=== PATIENT | female | born 1960 | race Caucasian/White ===

== ENCOUNTER 2025-01-30 09:48 | Outpatient (AMB) | payer MEDICARE, SELFPAY ==
--- NOTE | 2025-01-30 10:14 | HO.SPINEOV ---
Intake Visit Reasons: Chronic back & Hip pain Intake Note: Ms. Ojeda is here today c/o back and hip pain. MRI done @ [facility] (brought disc). 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 Allergies Iodinated Contrast Media Allergy (Severe, Verified 01/30/25 10:17) Hives gabapentin Allergy (Intermediate, Verified 01/30/25 10:17) Confusion Penicillins Allergy (Mild, Verified 01/30/25 10:17) Rash ampicillin Adverse Reaction (Mild, Verified 01/30/25 10:17) Rash Assessment & Plan Assessment & Plan (1) Lumbar stenosis with neurogenic claudication: Code(s): M48.062 - Spinal stenosis, lumbar region with neurogenic claudication Category: Medical Plan Dear colleague Thank you for referring Rhoda Ojeda to the office today with a chief complaint of right-sided back pain radiating down her right leg. HPI: This 64-year-old female had an episode of severe back pain during 34 years ago. It is unclear if there was radiating pain down her leg but she did have residual numbness in the top of her foot and big toe. She also had a cervical decompression done for right-sided arm pain and weakness. She comes in complaining of a predominantly right-sided back pain that radiates down into her right leg. The pain can radiate to her right hip to the front of her thigh and into her suazo. The symptoms have been going on for years but have progressed to a point that it is interfering with daily activities. She has to change her routine of exercising to avoid the symptoms and can not walk or stand as long as she wants anymore. Sitting down relieves the symptoms. 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 She is going to have another study done in March to assess if any growth occurs. GERD, 2 C-sections, cervical laminectomy, carpal tunnel release any cholecystectomy Medications: Ibuprofen, Tylenol, Pepcid, omeprazole, Restasis, lorazepam Allergies: Ampicillin and penicillin which both produce rash, gabapentin gives confusion, contrast allergy Social history: Retired. Lives alone. Two grown children. She denies smoking Physical Exam: Pleasant female. The no restrictions in motion of the lumbar spine. Straight leg raise is negative. Motor exam is 5/5 throughout. There is bilateral hypoesthesia in his sock like distribution. Reflexes are still present though. No pathological reflexes Radiological Studies: MRI done at [facility] on 05/05/2024 shows a asymmetrical near collapse of the L4-5 disc space and moderate L3-4 central spinal stenosis. Impression/Plan: This patient is clinically suffering from unilateral neurogenic claudication caused by L3-4 spinal stenosis. I think in the past she had a disc herniation L4-5 with residual numbness in an L5 dermatome. This most likely explains the asymmetrical disc collapse at L4-5. I offered the patient a right L3-4 hemilaminotomy to decompress the L4 nerve root to address the right leg pain. I described the procedure and expected postoperative outcome. I advised her to schedule surgery after it is determined that the aortic aneurysm is stable. Thank you for allowing me to participate in your patients care. total time spent was 50 minutes in counseling ,coordination of plan, personal review of imaging, surgical decision making and subsequent plan Lane Fernandes MD, PhD Spine Fellowship Trained Neurosurgeon Director, [facility] Coding Level of Care Code New Pt Level 4 (92612) Diagnoses Lumbar stenosis with neurogenic claudication M48.062
== END 2025-01-30 10:52 | disposition home or self-care (01) ==
LOC: HO.HNS 09:49
PROVIDERS: PCP Family Medicine; Referring Provider Family Medicine; Visit Provider Neurological Surgery
DX: M48.062 Spinal stenosis, lumbar region with neurogenic claudication (principal)
CPT/HCPCS: 99204

== ENCOUNTER → 2025-01-30 09:48 | Outpatient (BNVA) | payer MEDICARE, SELFPAY | PROVIDERS: PCP Family Medicine; Referring Provider Family Medicine; Visit Provider Neurological Surgery | DX: M48.062 Spinal stenosis, lumbar region with neurogenic claudication (principal) | CPT/HCPCS: 99202 ==

== ENCOUNTER → 2025-04-29 13:08 | Outpatient (BNV) | payer MEDICARE, SELFPAY | PROVIDERS: PCP Family Medicine; Visit Provider Internal Medicine Cardiovascular Disease | DX: R94.31 Abnormal electrocardiogram [ECG] [EKG] (principal); Z01.810 Encounter for preprocedural cardiovascular examination | CPT/HCPCS: 93010 ==

== ENCOUNTER 2025-04-29 14:10 | Outpatient (AMB) | payer MEDICARE, SELFPAY ==
--- NOTE | 2025-04-29 14:22 | HO.SPINEOV ---
Intake Visit Reasons: Discuss Surgery/Surgery Questions Intake Note: Ms. Ojeda is here today to discuss surgical options. Nuclear Auxiliary Operator Required: No Allergies Iodinated Contrast Media Allergy (Severe, Verified 01/30/25 10:17) Hives gabapentin Allergy (Intermediate, Verified 01/30/25 10:17) Confusion Penicillins Allergy (Mild, Verified 01/30/25 10:17) Rash ampicillin Adverse Reaction (Mild, Verified 01/30/25 10:17) Rash Assessment & Plan Assessment & Plan (1) Lumbar stenosis with neurogenic claudication: Code(s): M48.062 - Spinal stenosis, lumbar region with neurogenic claudication Category: Medical Plan On 04/29/2025, I saw for preoperative visit Rhoda Ojeda to answer some more questions about her upcoming surgery. She is scheduled to undergo a lumbar decompression for right L4 radiculopathy/neurogenic claudication. I explained to her that the goal of surgery is to relieve the symptoms. I do not think it will affect her intermittent back pain. All questions were answered satisfactorily. I spent 15 minutes in his consult. Lane Fernandes MD, PhD Spine Fellowship Trained Neurosurgeon Director, [facility] Coding Level of Care Code Est Pt Level 2 (99910) Diagnoses Lumbar stenosis with neurogenic claudication M48.062
--- OUTSIDE RECORDS SUMMARY | 2025-04-29 14:27 | XMS_ITS | Encounter Summary ---
Author Organization [facility] Address [address] [place] [address] Phone Care Team Providers Care Tipple Supervisor Name Role Phone Alonso Denney MD Unavailable [phone] Alonso Denney MD Primary Care Provider + [phone] Homa Richards MD Unavailable [phone] Alonso Denney MD Unavailable [phone] Encounter Details Date Type Department Care Team (Latest Contact Info) Description 12/12/2021 Transcribe Orders [facility] [address] [place] [address] Pedro Rivas MD [address] [place] [address], [address] [place], [place] [id number] [email or web address] Neuropathy (Primary Dx); Numbness Social History Tobacco Use Types Packs/Day Years Used Date Smoking Tobacco: Never Smokeless Tobacco: Never Alcohol Use Standard Drinks/Week Comments Yes 6 (1 standard drink = 0.6 oz pur e alcohol) Comments No Sex and Gender Information Value Date Recorded Sex Assigned at Female 03/08/2020 12:06 PM EDT Legal Sex Female 9:51 PM EDT Gender Identity Female 03/08/2020 12:06 PM EDT Sexual Orientation Straight 03/08/2020 12 :06 PM EDT documented as of this encounter Plan of Treatment Upcoming Encounters Date Type Department Care Team (Late st Contact Info) Description 03/13/2025 Procedure Pass [facility] [address] [place] [address] [place] [address] 06/02/2025 10:00 AM EDT Nurse Only [address] [place] [address] Alonso Denney MD [address] [place] [address], [address] [place] [address] 06/22/2025 11:00 AM EDT Office Visit [address] [place] [address] Alonso Denney MD [address] [place] [address], [address] [place] [address] 08/17/2025 2:45 PM EST Appointment Echo Lab [address] [place] [address] Ese Grier DNP [address] [place] [address], [address] [address] 09/21/2025 10:30 AM EST Office Visit [facility] [address] [place] [address] Dr [address] Floor, [address] [place] [address] Star Goodman DO [address] [place] [address] 01/05/2026 9:10 AM EDT Office Visit [facility] [address] [place] [address] [place] [address] Angle Rouse MD, MPH [address] [place] [address], [address] [address] documented as of this encounter Results * MYELOPEROXIDASE ANTIBODIES, IGG (12/16/2021 10:11 AM EDT) MYELOPEROXIDASE AB <0.2 <0.4 (Negative) U [facility] [place] Blood 12/16/2021 10:1 1 AM EDT 12/16/2021 10:36 AM EDT Pedro Rivas MD LAB BLOOD ORDERABLES Final R esult Performing Organization Address [facility] Co de Phone Number [facility] [place] [address] [place] [address] * SS-A/SS-B antibodies (12/12/2021 9:56 AM EDT) SS-A/RO IGG <0.2 <1.0 (Negative) U [facility] [place] SS-B/LA IGG <0.2 <1.0 (Negative) U [facility] Blood 12/12/2021 9:56 AM EDT 12/12/2021 10:13 AM EDT Pedro Rivas MD LAB BLOOD ORDERABLES Final R esult Performing Organization Address 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 Suggest further testing for anti-myeloperoxidase (anti-MPO) antibodies, if clinically indicated. ADDITIONAL INFORMATION This test was developed and its performance characteristics determined by [facility] in a manner consistent with CLIA requirements. This test has not been cleared or approved by the U.S. Food and Drug Administration. Blood 12/12/2021 9:56 AM EDT 12/12/2021 10:13 AM EDT Pedro Rivas MD LAB BLOOD ORDERABLES Final R esult Performing Organization Address City/[facility]/ZIP Co de Phone Number [facility]/PATH [address] [place] [address] * ACETYLCHOLINE RECEPTOR BINDING ANTIBODY (12/12/2021 9:56 AM EDT) ACH RECEPTOR BIND AB 0.00 <=0.02 nmol/L [facility] MED AND PAT+ Comment: (NOTE) ADDITIONAL INFORMATION This test was developed and its performance characteristics determined by [facility] in a manner consistent with CLIA requirements. This test has not been cleared or approved by the U.S. Food and Drug Administration. Blood 12/12/2021 9:56 AM EDT 12/12/2021 10:13 AM EDT Pedro Rivas MD LAB BLOOD ORDERABLES Final [facility] Performing Organization Address City/[facility] Co de Phone Number [facility] MED AND PAT+ [address] [place] [address] * (ABNORMAL) CPK (creatine kinase) (12/12/2021 9:56 AM EDT) Pathologist [facility] CREATINE KINASE 231(H) 21 - 215 U/L [facility] Blood 12/12/2021 9:56 AM EDT 12/12/2021 10:13 AM EDT Pedro Rivas MD LAB BLOOD ORDERABLES Final R esult Performing Organization Address City/[facility]/ZIP Co de Phone Number [facility] [address] [place] [address] documented in this encounter Visit Diagnoses Diagnosis Neuropathy- Primary Mononeuritis of unspecified site Numbness Disturbance of skin sensation documented in this encounter Additional Health Concerns Infection Onset Date Last Indicated Resolved Time COVID-19 11/29/2022 11/29/2022 12/20/2022 1:21 AM EDT CoV-Risk Comment:Per Ambulatory Triage Form 11/30/2022 11/30/202211/30 8:26 AM EDT Assessment Noted Time PHQ-2 Depression Total Score: 0 12/21/19 21 9:27 AM EDT documented as of this encounter Care Teams Tipple Supervisor Relationship Specialty Start Date End Date Alonso Denney MD [address] [place] [address], [address] [place] [id number] PCP - General 07/02/17 Alonso Denney MD [address] [place] [address], [address] [place] [address] Historical LMR Provider 07/08/17 Homa Richards MD [address] [place] [address] Orthopedics [facility] Sports Medicine, [place] [address] Historical LMR Provider 07/08/17 Alonso Denney MD [address] [place] [address], [address] [address] Insurance Assigned Provider 01/18/19 documented as of this encounter Additional Source Comments The information contained in this document represents components of the legal health record. It is not the complete legal health record.[facility]
== END 2025-04-29 14:44 | disposition home or self-care (01) ==
LOC: HO.HNS 14:10
PROVIDERS: PCP Family Medicine; Visit Provider Neurological Surgery
DX: M48.062 Spinal stenosis, lumbar region with neurogenic claudication (principal)
CPT/HCPCS: 99212

== ENCOUNTER → 2025-04-29 14:10 | Outpatient (BNVA) | payer MEDICARE, SELFPAY | PROVIDERS: PCP Family Medicine; Visit Provider Neurological Surgery | DX: M48.062 Spinal stenosis, lumbar region with neurogenic claudication (principal) | CPT/HCPCS: 99212 ==

== ENCOUNTER 2025-05-14 08:44 | Day surgery (SDC) | payer MEDICARE, SELFPAY ==
--- NOTE | 2025-04-29 | ECG_ITS ---
Test Reason : 5preop Blood Pressure : */* mmHG Vent. Rate : 72 BPM Atrial Rate : 72 BPM P-R Int : 174 ms QRS Dur : 80 ms QT Int : 384 ms P-R-T Axes : 46 24 66 degrees QTcB Int : 420 ms Normal sinus rhythm Low voltage QRS Septal infarct , age undetermined Abnormal ECG No previous ECGs available Referred By: Teresa Rogers Electronically Signed By: Zachery Cristobal
[2025-04-29 12:25] VITALS: BP 158/96; PULSE 89; RESP 17; O2SAT 99; BMI 23.9
--- NOTE | 2025-04-29 12:32 | HO.ANESPROP2 ---
Documented by User: Teresa Rogers NP 05/05/25 11:43 HPI - Anesthesia Eval Consult details Narrative: 64 yr old female for right L3-4 Hemilaminotomy, seen in PAT. No CP/SOB with hiking [place] several times weekly. Aortic aneurysm: stable based on recent echo done at [facility], see below. Follows with [facility], last visit end of February 2025, will have repeat echo 6 months (Sep 10Oct 12) Rare vasovagal episodes: 2/2 severe dehydration, pain, getting up quickly. [facility] Active Problems Active Problems: All Active Problems Lumbar stenosis with neurogenic claudication (Acute) Past Medical History Medical History Vasovagal episode Back pain Arthritis GERD (gastroesophageal reflux disease) Aortic aneurysm Numbness Idiopathic peripheral neuropathy Osteopenia Family History Family history of problems with anesthesia: No Surgical History Surgical History History of bilateral breast biopsy H/O colonoscopy History of esophagogastroduodenoscopy (EGD) History of carpal tunnel release Hx of cholecystectomy Hx of excision of lamina of cervical vertebra for decompression of spinal cord (~2009) History of 2 sections History of Problems with Anesthesia: No Social History Social History Are you a primary family member caretaker to a significant other at home: No Do you presently have visiting nurse or other home services: No Patient Tobacco Use Status: Never used Tobacco Use of substances other than those prescribed or required for medical reasons: No Have you been hit, kicked, punched, or otherwise hurt by someone within the past year? If so, by whom?: No Advance Directives: No Advance Directives Information Provided: Yes Advance Directives on File: No Patient : No : No Poor oral hygiene: Yes Meds Allergies Allergy/AdvReac Type Severity Reaction Status Date / Time Iodinated Contrast Media Allergy Severe Hives Verified 01/30/25 10:17 gabapentin Allergy Intermediate Confusion Verified 01/30/25 10:17 Penicillins Allergy Mild Rash Verified 01/30/25 10:17 ampicillin AdvReac Mild Rash Verified 01/30/25 10:17 Home Medications ?Medication ?Instructions ?Recorded ?Confirmed ?Last Taken ?Type acetaminophen 325 mg tablet 650 mg PO Q6H PRN Pain 04/29/25 04/29/25 Unknown History calcium carbonate 500 mg PO DAILY 04/29/25 04/29/25 Unknown History cholecalciferol (vitamin D3) 75 75 mcg PO DAILY 04/29/25 04/29/25 Unknown History mcg (3,000 unit) tablet cyanocobalamin (vitamin B-12) 100 100 mcg [id number] 04/29/25 04/29/25 Unknown History mcg/mL injection solution cyclosporine 0.05 % eye drops in a 1 drp ophthalmic (eye) BID 04/29/25 04/29/25 Unknown History dropperette (Restasis) famotidine 20 mg tablet 20 mg PO DAILY PRN Acid Reflux 04/29/25 04/29/25 Unknown History ibuprofen 200 mg tablet 400 mg PO Q6H PRN Pain 04/29/25 04/29/25 Unknown History lorazepam 0.5 mg tablet 0.5 mg PO BID PRN anxiety 04/29/25 04/29/25 Unknown History omeprazole 20 mg capsule,delayed 20 mg PO DAILY PRN Acid Reflux 04/29/25 04/29/25 Unknown History release vitamin B complex 1 cap PO DAILY 04/29/25 04/29/25 Unknown History Exam Narrative Narrative: EKG 04/29/25 Vent. Rate : 72 BPM Atrial Rate : 72 BPM P-R Int : 174 ms QRS Dur : 80 ms QT Int : 384 ms P-R-T Axes : 46 24 66 degrees QTcB Int : 420 ms Normal sinus rhythm Low voltage QRS Septal infarct , age undetermined Abnormal ECG No previous ECGs available unchanged from scanned EKG from 2022 Echo 02/2025 Airway Mallampati Class: I TM Dist: >3cm Neck ROM: Full Loose/Missing/Broken Teeth: No Heart: RRR Lungs: CTAB Assessment and Plan Final Anesthetic Review Family History of Problems with Anesthesia: No History of Problems with Anesthesia: No Documented by User: Josephine Teran NP 05/13/25 09:15 [facility] Past Medical History Medical History Vasovagal episode Back pain Arthritis GERD (gastroesophageal reflux disease) Aortic aneurysm Numbness Idiopathic peripheral neuropathy Osteopenia Surgical History Surgical History History of bilateral breast biopsy H/O colonoscopy History of esophagogastroduodenoscopy (EGD) History of carpal tunnel release Hx of cholecystectomy Hx of excision of lamina of cervical vertebra for decompression of spinal cord (~2009) History of 2 sections Social History Social History Are you a primary family member caretaker to a significant other at home: No Do you presently have visiting nurse or other home services: No Patient Tobacco Use Status: Never used Tobacco Use of substances other than those prescribed or required for medical reasons: No Have you been hit, kicked, punched, or otherwise hurt by someone within the past year? If so, by whom?: No Advance Directives: No Advance Directives Information Provided: Yes Advance Directives on File: No Patient : No : No Poor oral hygiene: Yes Meds Allergies Allergy/AdvReac Type Severity Reaction Status Date / Time Iodinated Contrast Media Allergy Severe Hives Verified 01/30/25 10:17 gabapentin Allergy Intermediate Confusion Verified 01/30/25 10:17 Penicillins Allergy Mild Rash Verified 01/30/25 10:17 ampicillin AdvReac Mild Rash Verified 01/30/25 10:17 Home Medications ?Medication ?Instructions ?Recorded ?Confirmed ?Last Taken ?Type acetaminophen 325 mg tablet 650 mg PO Q6H PRN Pain 04/29/25 04/29/25 Unknown History calcium carbonate 500 mg PO DAILY 04/29/25 04/29/25 Unknown History cholecalciferol (vitamin D3) 75 75 mcg PO DAILY 04/29/25 04/29/25 Unknown History mcg (3,000 unit) tablet cyanocobalamin (vitamin B-12) 100 100 mcg [id number] 04/29/25 04/29/25 Unknown History mcg/mL injection solution cyclosporine 0.05 % eye drops in a 1 drp ophthalmic (eye) BID 04/29/25 04/29/25 Unknown History dropperette (Restasis) famotidine 20 mg tablet 20 mg PO DAILY PRN Acid Reflux 04/29/25 04/29/25 Unknown History ibuprofen 200 mg tablet 400 mg PO Q6H PRN Pain 04/29/25 04/29/25 Unknown History lorazepam 0.5 mg tablet 0.5 mg PO BID PRN anxiety 04/29/25 04/29/25 Unknown History omeprazole 20 mg capsule,delayed 20 mg PO DAILY PRN Acid Reflux 04/29/25 04/29/25 Unknown History release vitamin B complex 1 cap PO DAILY 04/29/25 04/29/25 Unknown History Exam Pertinent Lab Results Pertinent Lab Results: Lab Results 04/29/25 Range/Units 13:21 WBC 4.3 L (4.8-10.8) X10*3/uL RBC 4.32 (4.20-5.50) X10*6/uL Hgb 13.8 (12.0-16.0) g/dl Hct 40.9 (37.0-47.0) % MCV 94.7 (80.0-98.0) fL MCH 31.9 (27.0-33.0) pg MCHC 33.7 (31.0-35.0) g/dl RDW 12.9 (11.0-16.0) % Plt Count 265 (160-400) X10*3/uL MPV 9.6 (9.4-12.3) fL Immature Gran % (Auto) 0.2 (0.0-0.4) % Neut % (Auto) 57.3 (45-73) % Lymph % (Auto) 27.3 (20-40) % [place] % (Auto) 11.2 H (2-11) % Eos % (Auto) 2.6 (0-4) % Baso % (Auto) 1.4 (0-2) % Lymph # (Auto) 1.2 (1.2-4.9) X10*3/uL [place] # (Auto) 0.5 (0.1-1.2) X10*3/uL Eos # (Auto) 0.1 (0.0-0.4) X10*3/uL Baso # (Auto) 0.1 (0.0-0.2) X10*3/uL Abs Immat Gran (auto) 0.01 (0.00-0.03) X10*3/uL Absolute Neuts (auto) 2.5 (2.0-8.3) x10*3/uL Absolute Nucleated RBC 0.000 (0.0-0.012) X10*3/uL Nucleated RBC % (auto) 0.0 (0.0-0.2) /100WBC Sodium 138 (135-145) mmol/L Potassium 3.9 (3.3-5.1) mmol/L Chloride 104 (96-108) mmol/L Carbon Dioxide 27 (22-29) mmol/L Anion Gap 11 L (12-20) BUN 15 (9-16) mg/dL Creatinine 0.65 (0.5-1.4) mg/dL Estim Creat Clear Calc 85.9 Estimated GFR > 60 Random Glucose 96 (60-115) mg/dL Calcium 9.4 (8.4-10.2) mg/dL Documented by User: Yanelis Pate MD 05/14/25 09:12 [facility] Past Medical History Medical History Vasovagal episode Back pain Arthritis GERD (gastroesophageal reflux disease) Aortic aneurysm Numbness Idiopathic peripheral neuropathy Osteopenia Surgical History Surgical History History of bilateral breast biopsy H/O colonoscopy History of esophagogastroduodenoscopy (EGD) History of carpal tunnel release Hx of cholecystectomy Hx of excision of lamina of cervical vertebra for decompression of spinal cord (~2009) History of 2 sections Social History Social History Are you a primary family member caretaker to a significant other at home: No Do you presently have visiting nurse or other home services: No Patient Tobacco Use Status: Never used Tobacco Use of substances other than those prescribed or required for medical reasons: No Have you been hit, kicked, punched, or otherwise hurt by someone within the past year? If so, by whom?: No Advance Directives: No Advance Directives Information Provided: Yes Advance Directives on File: No Patient : No : No Poor oral hygiene: Yes Meds Allergies Allergy/AdvReac Type Severity Reaction Status Date / Time Iodinated Contrast Media Allergy Severe Hives Verified 01/30/25 10:17 gabapentin Allergy Intermediate Confusion Verified 01/30/25 10:17 Penicillins Allergy Mild Rash Verified 01/30/25 10:17 ampicillin AdvReac Mild Rash Verified 01/30/25 10:17 Home Medications ?Medication ?Instructions ?Recorded ?Confirmed ?Last Taken ?Type acetaminophen 325 mg tablet 650 mg PO Q6H PRN Pain 04/29/25 04/29/25 Unknown History calcium carbonate 500 mg PO DAILY 04/29/25 04/29/25 Unknown History cholecalciferol (vitamin D3) 75 75 mcg PO DAILY 04/29/25 04/29/25 Unknown History mcg (3,000 unit) tablet cyanocobalamin (vitamin B-12) 100 100 mcg [id number] 04/29/25 04/29/25 Unknown History mcg/mL injection solution cyclosporine 0.05 % eye drops in a 1 drp ophthalmic (eye) BID 04/29/25 04/29/25 Unknown History dropperette (Restasis) famotidine 20 mg tablet 20 mg PO DAILY PRN Acid Reflux 04/29/25 04/29/25 Unknown History ibuprofen 200 mg tablet 400 mg PO Q6H PRN Pain 04/29/25 04/29/25 Unknown History lorazepam 0.5 mg tablet 0.5 mg PO BID PRN anxiety 04/29/25 04/29/25 Unknown History omeprazole 20 mg capsule,delayed 20 mg PO DAILY PRN Acid Reflux 04/29/25 04/29/25 Unknown History release vitamin B complex 1 cap PO DAILY 04/29/25 04/29/25 Unknown History Assessment and Plan Assessment Anesthesia Assessment: Anesthesia Plan Discussed and Chart Reviewed Final Anesthetic Review NPO: Yes ASA Class: III Final Preanesthetic Review: No Changes in Pt Med Stat, Meds/Allgs Chart Reviewed, Consent Obtained/Reviewed and Anes Risks/Benef Reviewed Patient Risk: Intermediate Procedure Risk: Intermediate Anesthetic Plan Anesthetic Plan: GA Disposition: Standard PACU
[2025-04-29 13:22] LABS: MANUAL DIFF FLAG NO
[2025-04-29 13:38] LABS: Hematocrit 40.9 % (37.0-47.0); Hemoglobin 13.8 g/dl (12.0-16.0); Imm Gran Abs Auto 0.01 X10*3/uL (0.00-0.03); Imm Gran Pct Auto 0.2 % (0.0-0.4); Lymphocytes Absolute Auto 1.2 X10*3/uL (1.2-4.9); Mean Corpuscular HGB Conc 33.7 g/dl (31.0-35.0); Mean Corpuscular Hemoglobin 31.9 pg (27.0-33.0); Mean Corpuscular Volume 94.7 fL (80.0-98.0); NRBC Abs Auto 0.000 X10*3/uL (0.0-0.012); NRBC Pct Auto 0.0 /100WBC (0.0-0.2); Platelet Count 265 X10*3/uL (160-400); Red Blood Count 4.32 X10*6/uL (4.20-5.50); White Blood Count 4.3 X10*3/uL (4.8-10.8)
[2025-04-29 14:42] LABS: Anion Gap 11 (12-20); Blood Urea Nitrogen 15 mg/dL (9-16); Calcium 9.4 mg/dL (8.4-10.2); Carbon Dioxide 27 mmol/L (22-29); Chloride 104 mmol/L (96-108); Creatinine Clr Calc Pharmacy 85.9; Estimated Glomerular Filt Rate > 60; Potassium 3.9 mmol/L (3.3-5.1); Sodium 138 mmol/L (135-145)
[2025-05-14] VITALS (9 sets, daily range): BP systolic 125–165; BP diastolic 69–99; PULSE 78–93; RESP 12–20; TEMP 36.1; O2SAT 96–100; BMI 23.0
--- NOTE | ~2025-05-14 | FL_ITS ---
EXAMINATION: FL GUIDANCE ONLY HISTORY: l3-4 hemilaminotomy, right COMPARISON: None available. TECHNIQUE: Fluoroscopy time: Less than 1 minute. Cumulative Dose: 4.23 mGy. DAP: 1.15 mGym2 Images: 1. FINDINGS: A single fluoroscopic spot film of the lumbar spine in the lateral projection demonstrates a probe directed toward the L3-4 intervertebral disc space from a posterior approach. FL/FL guidance in OR IMPRESSION: Fluoroscopy during procedure. Please see procedure report for additional information. Electronically signed by: Av Boyle MD 05/14/2025 12:58 PM EDT
--- NOTE | 2025-05-14 09:07 | MHC.SHP ---
Pre-Procedural Eval Section A - 24 Hr Update-Section A only Date of Service: 05/14/25 The patient is an INPATIENT: No Section B - Complete if H&P > 30 days Chief Complaint: Spinal stenosis, lumbar region with neurogenic Details of Present Illness: Right Leg pain Allergies: Allergies Allergy/AdvReac Type Severity Reaction Status Date / Time Iodinated Contrast Media Allergy Severe Hives Verified 01/30/25 10:17 gabapentin Allergy Intermediate Confusion Verified 01/30/25 10:17 Penicillins Allergy Mild Rash Verified 01/30/25 10:17 ampicillin AdvReac Mild Rash Verified 01/30/25 10:17 Review of Systems Sugical H&P ROS: Negative: Constitution, Cardiovascular, Respiratory, Neurological, Psychiatric, Hem-Onc, Allergic/Immunologic, Gastrointestinal, Genitourinary, Musculoskeletal, Integumentary, Endocrine and Eyes/Ears/Nose/Throat Exam Surgical H&P Exam: Normal: HEENT, Normal: Heart, Normal: Lungs, Normal: Extremities, Normal: Abdomen, Normal: Skin and Normal: Neurological (Awake, alert) Plan Diagnosis/Plan: Unchanged I have reviewed the history and physical and performed a pertinent physical examination on my patient. No changes have occurred unless specified. Right L3-4 decompression Time Spent With Patient Time: Total time managing care of this patient today _4___ minutes.
[2025-05-14] MEDS: Lactated Ringers 1,000 ML 100 ML IVCONT (09:30)
--- NOTE | 2025-05-14 11:41 | PM.DS ---
DS: Providers Provider Date of Service: 05/14/25 <MIRANDA Perry - Last Filed: 05/14/25 11:44> Date of discharge: 05/14/25 <MIRANDA Perry - Last Filed: 05/14/25 11:44> Primary care physician: Alonso Denney MD <MIRANDA Perry - Last Filed: 05/14/25 11:44> Admitting clinician: Lane Fernandes <MIRANDA Perry - Last Filed: 05/14/25 11:44> DS: Diagnosis Discharge Diagnosis (1) Lumbar stenosis with neurogenic claudication: Status: Acute <MIRANDA Perry - Last Filed: 05/14/25 11:44> DS: Summary Time Attestation Discharge Coordination Time (in mins): 15 <MIRANDA Rivera - Last Filed: 05/14/25 12:33> Quality: Safe Use of Opioids Does Pt have an Active Cancer Diagnosis on the Problem List?: No <MIRANDA Rivera - Last Filed: 05/14/25 12:33> Quality: Stroke Does the patient have a stroke diagnosis?: No <MIRANDA Rivera - Last Filed: 05/14/25 12:33> Physical Exam Vital Signs: Vital Signs: Last Vital Signs Temp 96.9 F 05/14/25 09:16 Pulse 84 05/14/25 09:16 Resp 20 05/14/25 09:16 BP 125/85 05/14/25 09:16 Pulse Ox 98 05/14/25 09:16 O2 Del Method Room Air 05/14/25 09:16 BMI result Body Mass Index 23.0 <MIRANDA Perry - Last Filed: 05/14/25 11:44> Discharge Plan Discharge Patient Disposition: Home, Self-Care <MIRANDA Perry - Last Filed: 05/14/25 11:44> Referrals: Alonso Denney MD [Primary Care Provider, Internal Medicine] - 1 Week <MIRANDA Perry - Last Filed: 05/14/25 11:44> Discharge Medications: New oxycodone 5 mg tablet 5 mg PO Q4H PRN (Reason: pain) Qty: 20 0RF Rx Instructions: Partial Fill upon patient request. docusate sodium [Colace] 100 mg capsule 100 mg PO BID Qty: 20 0RF Continued acetaminophen 325 mg Tablet 650 mg PO Q6H PRN (Reason: Pain) famotidine 20 mg Tablet 20 mg PO DAILY PRN (Reason: Acid Reflux) lorazepam 0.5 mg tablet 0.5 mg PO BID PRN (Reason: anxiety) ibuprofen 200 mg Tablet 400 mg PO Q6H PRN (Reason: Pain) omeprazole 20 mg Capsule,Delayed Release(Dr/Ec) 20 mg PO DAILY PRN (Reason: Acid Reflux) cyclosporine [Restasis] 0.05 % dropperette 1 drp ophthalmic (eye) BID calcium carbonate 500 mg calcium (1,250 mg) Tablet 500 mg PO DAILY cholecalciferol (vitamin D3) 75 mcg (3,000 unit) Tablet 75 mcg PO DAILY cyanocobalamin (vitamin B-12) 100 mcg/mL Solution 100 mcg [id number] <MIRANDA Perry - Last Filed: 05/14/25 11:44> Discharge Orders: Discharge Order (Routine); Ordered 05/14/25 Ordered By: Basilio Hunt <MIRANDA Perry - Last Filed: 05/14/25 11:44> Diet: Advance to usual diet <MIRANDA Perry - Last Filed: 05/14/25 11:44> Advance to usual diet <MIRANDA Rivera - Last Filed: 05/14/25 12:33> Activity on Discharge: As tolerated <MIRANDA Perry - Last Filed: 05/14/25 11:44> As tolerated <MIRANDA Rivera - Last Filed: 05/14/25 12:33> Activity Restrictions/Additional Instructions: After your spinal surgery we ask you to observe the following restrictions/guidelines: Activity: It is normal to feel some discomfort as you increase your activity, but that will improve with time. We ask you avoid heavy lifting or acitivities that cause pain. As a general rule, 8lbs is a safe limit for lifting right after surgery. Walk as much as you feel comfortable but not to exhaustion. You will feel extra tired the first few days after surgery. Stay well hydrated. It is OK to walk up and down stairs You may return to driving when you are off narcotics (such as vicodin, oxycodone, dilaudid, etc), and you are back to normal functional capacity. If you have any concerns please check with office before driving. Return to work is specific to each patient and each surgery, so please speak with your doctor/PA at first follow up. Please bring paperwork such as FMLA at that time if you need it filled out. Medications: For optimum pain control, it is best to start with a combination of 500 mg of Tylenol every 4 hours with 600 mg of Motrin every 8 hours, and use narcotics as needed in between for breakthrough pain. We will give you a short supply of narcotics after surgery (usually one weeks worth). If you need more please call the office but do not use more than prescribed. You will need to give our office 48 hours notice if you need narcotics refilled and we do not fill narcotics on weekends or evenings. If you are on a narcotic, it is a good idea to take a stool softener such as colace or senna to avoid constipation If you take blood thinner such as aspirin, Plavix, Coumadin, Effient, Eliquis etc for conditions such as Afib, DVT, Pulmonary embolus, coronary disease, stents etc please speak with your surgeon about specific details as to when you can resume these medications. You can resume NSAIDs on post op day 1 (eg: Motrin, Naproxen, etc). Follow up: Please call the office, , after surgery to arrange a 3 week follow up for wound check. Wound Care: You may remove your dressing on the first day after surgery. ?You may ?leave open to air. Please do not remove the steri strips underneath. they will fall off on their own in one week. IT IS NORMAL FOR THE WOUND TO OOZE OR BE BLOODY FOR A FEW DAYS AFTER SURGERY. ?IF THIS HAPPENS JUST PLACE NEW DRESSING OVER IT TO AVOID STAINING CLOTHES. You may shower on post op day # 1 We ask that you do not let the water soak the wound. If it does get wet, just towel dry lightly. Please do not scrub your incision or place any type of chemical/ointment on the wound. No tub baths, pools or jacuzzis for one month. If you have any leaking or redness from your wound, or fevers, please call office <MIRANDA Perry - Last Filed: 05/14/25 11:44> Print Language: Armenian <MIRANDA Perry - Last Filed: 05/14/25 11:44>
--- NOTE | 2025-05-14 12:33 | W.PM.OPN ---
Operative Note Operative Note Date of Service: 05/14/25 Narrative: Preoperative Diagnosis: L3-4 spinal stenosis/lateral recess stenosis/neural foraminal stenosis Operation: Right L3-4 Laminotomy, Partial facetectomy and foraminotomy with use of microscope Consent Informed Consent was obtained for this operation. I have explained the nature, purpose and benefits of the operation. I have discussed the risks and benefit of the operation including possible complications or adverse events with patient/family. Alternative(s) were discussed with the patient with their relative benefits and risks as well as the consequences of not accepting the operation were included in obtaining consent. Surgeon: JENNA ANDRADE MD, PHD Procedure Assisted By: Charles Garza Description of Procedure This patient is suffering from right lumbar radiculopathy due to L3-4 lateral recess stenosis. The patient was offered a decompression. The procedure complications were explained. The patient was consented. The patient was brought to the operating room and endotracheally intubated. The patient was turned in prone position on the Jose frame. Prep and drape was done followed by timeout. The Physician cement tester assistant provided access. A mid lumbar incision was made followed by release of the paravertebral muscle on the right side to expose the L3-4 lamina and facet joints. An intraoperative x-ray was obtained to confirm the correct level. The microscope was brought in. I took over the procedure. The high-speed drill was used to do a L3 laminotomy until flavum ligament was reached. A #2 Kerrison was used to expand the laminotomy near flush to the pedicles and to include a partial facetectomy. The flavum ligament was opened and resected with a #3 Kerrison to decompress the underlying thecal sac. The flavum ligament was removed to decompress the lateral recess and the exiting L4 nerve root. A long nerve hook could be easily passed along the medial side of the pedicle as a sign of adequate decompression. The microscope was removed. Hemostasis was done. The physician cement tester assistant close the Incision in 2 layers. Steri-Strips were used to approximate incision. An OpSite with Tegaderm was used to cover the incision. All sponge needle counts were correct. Patient was extubated and transported in stable is to recovery room. Anesthesia: General Estimated Blood Loss (ml): 10 Complications: None Duration of Surgery: Under 60 Minutes Postoperative Plan: Discharge to home
[2025-05-14] MEDS: oxyCODONE HCl Immed Release 5 MG TABLET PO (13:33)
== END 2025-05-14 14:27 | disposition home or self-care (01) ==
PROVIDERS: Nurse Practitioner; PCP Family Medicine; Visit Provider Neurological Surgery
PROC: (CPT 63047; principal; 2025-05-14 11:50)
DX: M48.062 Spinal stenosis, lumbar region with neurogenic claudication (principal); M54.16 Radiculopathy, lumbar region; M79.605 Pain in left leg; Z91.041 Radiographic dye allergy status; Z88.0 Allergy status to penicillin; Z88.8 Allergy status to other drugs, medicaments and biological substances
CPT/HCPCS: 63047; 36415; 80048; 85025; 93005; J0131; J1100; J1885; J2003; J2250; J2405; J2704; J3010; J3374

== ENCOUNTER → 2025-05-14 08:44 | Outpatient (BNV) | payer MEDICARE, SELFPAY | PROVIDERS: PCP Family Medicine; Visit Provider Neurological Surgery | DX: M48.062 Spinal stenosis, lumbar region with neurogenic claudication (principal) | CPT/HCPCS: 63047; 99499 ==

== ENCOUNTER 2025-06-04 10:12 | Outpatient (AMB) | payer MEDICARE, SELFPAY ==
--- OUTSIDE RECORDS SUMMARY | 2025-06-02 10:00 | XMS_ITS | Encounter Summary ---
Author Organization [facility] Address [address] [facility] [address] [place] [address] Phone Care Team Providers Care Electric Power Line Examiner Name Role Phone Alonso Denney MD Unavailable [phone] Alonso Denney MD Primary Care Provider + [phone] Homa Richards MD Unavailable [phone] Reason for Visit * Reason Comments B12 Injection Encounter Details Date Type Department Care Team (Late st Contact Info) Description 06/02/2025 10:00 AM EDT Nurse Only [facility] [address] [place] [address] [phone] Alonso Denney MD [address] [facility], [address] [place] [address] [email or web address] Vitamin B 12 deficiency (Primary Dx) Social History Tobacco Use Types Packs/Day Years Used Date Smoking Tobacco: Never Smokeless Tobacco: Never Alcohol Use Standard Drinks/Week Comments Yes 1 (1 standard drink = 0.6 oz pur e alcohol) 1 or 1/2 wine every 1-2 months Child or Family Care Answer Date Record ed Do you have problems with on e of the following making it difficult for you to work, study, or receive health care? No 12/22/2022 Education Answer Date Recorded Are you interested in more education? Not on linda e 12/24/2024 Are you concerned about learning? Not on file 12/24/2024 No 12/24/2024 No 12/24/2024 Food Answer Date Recorded Within the past 6 months we worried whether our food would run out before we got money to buy more. Never True 12/22/2022 Within the past 6 months the food we bought just didn't last and we didn't have enough money to get more. Never True Residential Stability Answer Date Recor ded What is your housing situation today? I have teresa sing 12/22/2022 How many times have you move d in the past 12 months? Zero (I did not move) 12/22/2022 Paying for Meds Answer Date Recorded Do you have trouble paying for medicines? No 12/22/2022 Paying Utility Bills Answer Date Record ed Do you have trouble paying your heating or elect ricity bill? No 12/22/2022 Transportation Answer Date Recorded Has the lack of transportati on kept you from medical appointments or from getting medications? No 12/22/2022 Unemployment Answer Date Recorded Are you currently unemployed or working on a part-time or temporary basis, and looking for work? No 12/22/2022 Digital Access Answer Date Recorded No 02/09/2023 No 02/09/2023 Reliable internet access at home? Not on file 02/09/2023 Device with a working camera? Not on file Intimate Partner Violence Answer Date R ecorded Are you denied basic needs s uch as food, clothing, or medical care? No 10/21/2024 In the past 12 months have y ou been in a relationship with a person who hurts, threatens, or tries to control you? No 10/21/2024 Are you denied basic needs s uch as food, clothing, or medical care? No 10/21/2024 In the past 12 months have y ou been in a relationship with a person who hurts, threatens, or tries to control you? No 10/21/2024 Comments No Sex and Gender Information Value Date Recorded Sex Assigned at Female 03/08/2020 12:06 PM EDT Legal Sex Female 9:51 PM EDT Gender Identity Female 03/08/2020 12:06 PM EDT Sexual Orientation Straight 03/08/2020 12 :06 PM EDT documented as of this encounter Progress Notes * Addie Alexis LPN - 06/02/2025 10:00 AM EDT Patient arrived today for her B12 injection. Patient gets B12 every 2 months. She will return in 2 months for her next injection. documented in this encounter Plan of Treatment Upcoming Encounters Date Type Department Care Team (Late st Contact Info) Description 03/13/2025 Procedure Pass Echo [facility] [address] [place] [address] 06/22/2025 11:00 AM EDT Office Visit [address] [place] [address] Alonso Denney MD [address] [place] [address], [address] [place] [address] 08/11/2025 3:00 PM EST Nurse Only [address] [place] [address] Alonso Denney MD [address] [place] [address], [address] [place] [address] 08/17/2025 2:45 PM EST Appointment Echo Lab [address] [place] [address] Ese Grier DNP [address] [place] [address], [address] [place] [address] 09/21/2025 10:30 AM EST Office Visit [facility] [address] [place] [address] 3rd Floor, [address] [place] [address] Star Goodman DO [address] [place] [address] [place] [address] 01/05/2026 9:10 AM EDT Office Visit [facility] [address] [place] [address] Angle Rouse MD, MPH [address] [facility], [address] [place] [address] [email or web address] documented as of this encounter Visit Diagnoses Diagnosis Vitamin B 12 deficiency- Primary Other B-complex deficiencies documented in this encounter Administered Medications Active Administered Medications - up to 3 most recent administrations Medication Order MAR Action Action Date Dose Rate Site cyanocobalamin (VITAMIN B-12) 1,000 mcg/mL injection 1,000 mcg 1,000 mcg, Intramuscular, Every 2 Months, First dose on Sun01/04/21 at 1015Indications:B12 deficiency Given 06/02/2025 9:57 AM EDT 1,000 mcg Left Deltoid Given 03/31/2025 1:26 PM EDT 1,000 mcg Ri ght Deltoid Given 01/27/2025 1:16 PM EDT 1,000 mcg Le ft Deltoid documented in this encounter Additional Health Concerns Assessment Noted Time PHQ-2 Depression Total Score: 0 06/18/20 24 1:39 PM EDT documented as of this encounter Care Teams Electric Power Line Examiner Relationship Specialty Start Date End Date Alonso Denney MD [address] [place] [address], [address] [place] [address] [email or web address] PCP - General 07/02/17 Alonso Denney MD [address] [place] [address], [address] [place] [address] [email or web address] Historical LMR Provider 07/08/17 Homa Richards MD [address] [place] [address] [facility] Medicine, [place] [address] [email or web address] Historical LMR Provider 07/08/17 documented as of this encounter Additional Source Comments The information contained in this document represents components of the legal health record. It is not the complete legal health record.[facility]
--- NOTE | 2025-06-04 10:19 | HO.SPINEOV ---
Intake Visit Reasons: 1st post op Intake Note: Ms. Ojeda is here today for his 1st post op. Web Development Director Required: No Allergies Iodinated Contrast Media Allergy (Severe, Verified 06/04/25 10:19) Hives gabapentin Allergy (Intermediate, Verified 06/04/25 10:19) Confusion Penicillins Allergy (Mild, Verified 06/04/25 10:19) Rash ampicillin Adverse Reaction (Mild, Verified 06/04/25 10:19) Rash Assessment & Plan Assessment & Plan (1) Lumbar stenosis with neurogenic claudication: Code(s): M48.062 - Spinal stenosis, lumbar region with neurogenic claudication Category: Medical Plan Operation: Right L3-4 Laminotomy Rhoda is a pleasant 65 year old female who comes in today for her 1st postop visit after having right L3-4 lumbar decompression completed by Dr. Fernandes. Unfortunately, she reports of the same right-sided leg pain that she had prior to surgery has persisted despite her operation. She does report that she had about 2-3 days of relief after surgery, however the pain seems to have set back in. She is likely suffering from a course of postoperative inflammation, which we discussed during this visit. Often times as subsides around weeks 4-6 after surgery, the patient's once again experienced symptom relief. She asked several other questions regarding the postoperative healing course, all of which I answered to the best of my ability. We discussed return to activity guidelines and outdoor exercise. No new neurological deficits. The patient ambulates well and rises from a seated position without difficulty. Her posterior incision site is closed and well healing with no signs of drainage. I would like to follow up with Rhoda again in 6 weeks for her 2nd postoperative visit. Basilio Fernandes MD,PhD [facility] Coding Level of Care Code Global (87109) Diagnoses Lumbar stenosis with neurogenic claudication M48.062
--- OUTSIDE RECORDS SUMMARY | 2025-06-04 12:11 | XMS_ITS | Encounter Summary ---
Author Organization [facility] Address [address] [place] [address] [place] [address] Phone Care Team Providers Care I&C Tech Name Role Phone Alonso Denney MD Unavailable [phone] Fátima Cha MD Unavailable [phone] Alonso Denney MD Primary Care Provider + [phone] Josephine Beltran NP Unavailable [phone] Prudence Mishra MD Unavailable [phone] Jarrell Pretty MD Unavailable [phone] Homa Richards MD Unavailable [phone] Alonso Denney MD Unavailable [phone] Reason for Referral * MRI/CAT Scan - Closed Specialty Diagnoses / Procedures Referred By Contac t Referred To Contact Radiology Diagnoses Ataxia Numbness Procedures MRI Brain Pedro Rivas MD Phone: tel: fax: [email or web address] [address] [address] Phone: tel: Referral ID Status Reason Start Date Expiration Date Visits Re quested Visits Authorized [id number] Closed 11/07/2019 12/07/2019 1 1 Encounter Details Date Type Department Care Team (Latest Contact Info) Description 11/03/2019 Transcribe Orders Virtual Department [address] [place] [address] Pedro Rivas MD [address] [place] [address], [address] [place] [address] [email or web address] Ataxia (Primary Dx); Numbness Social History Tobacco Use Types Packs/Day Years Used Date Smoking Tobacco: Never Smokeless Tobacco: Never Alcohol Use Standard Drinks/Week Comments Yes 3 (1 standard drink = 0.6 oz pur [...] Info) Description 03/13/2025 Procedure Pass Echo Lab [address] [place] [address] 06/22/2025 11:00 AM EDT Office Visit [address] [place] [address] Alonso Denney MD [address] [place] [address], [address] [place] [address] 08/11/2025 3:00 PM EST Nurse Only [address] [place] [address] Alonso Denney MD [address] [place] [address], [address] [place] [address] 08/17/2025 2:45 PM EST Appointment Echo Lab [address] [place] [address] Ese Grier DNP [address] [place] [address], [address] [place] [address] [email or web address] 09/21/2025 10:30 AM EST Office Visit [facility] [address] Floor, [address] [place] [address] Star Goodman DO [address] [facility] [address] [place] [address] 01/05/2026 9:10 AM EDT Office Visit [facility] [address] [place] [address] Angle Rouse MD, MPH [address] [facility], [address] [place] [address] documented as of this encounter Results * MRI BRAIN WITHOUT CONTRAST (11/10/2019 8:17 AM EST) Anatomical Region Laterality Modality Head Magnetic Resonan ce 11/10/2019 8:56 AM EST Impressions 11/10/2019 9:01 AM EST No evidence of multiple sclerosis. No findings to account for the patient's symptoms. POS - [id number] Narrative 11/10/2019 9:01 AM EST HISTORY: 59-year-old female with ataxia and numbness. COMPARISON: None. TECHNIQUE: Exam performed on a 1.5 Zari high-field MRI scanner. Axial T1, T2, T2*, T2 FLAIR and diffusion-weighted imaging with ADC map, sagittal FLAIR and T1 sequences were obtained. MRI HEAD FINDINGS: Brain: No cerebellar tonsil herniation. Pituitary gland is not enlarged. No restricted diffusion to indicate acute or subacute ischemia. No intraparenchymal susceptibility artifact to indicate hemorrhage. Mild cerebellar atrophy. There are a few scattered subcentimeter T2 hyperintense white matter lesions which are of doubtful significance. No corpus callosum, brainstem or cerebellar lesions. No mass, mass effect, midline shift or extra-axial fluid collections. Ventricles: No hydrocephalus. Vasculature: Normal vascular flow-voids. Orbits: Normal. Mastoids/Middle Ear/Paranasal Sinuses: Mild ethmoid sinus mucosal thickening. Soft Tissues: Unremarkable. Bone Marrow: Unremarkable. Procedure Note Radha Arriola MD - 11/10/2019 HISTORY: 59-year-old female with ataxia and numbness. COMPARISON: None. TECHNIQUE: Exam performed on a 1.5 Zari high-field MRI scanner. AxialT1, T2, T2*, T2 FLAIR and diffusion-weighted imaging with ADC map,sagittal FLAIR and T1 sequences were obtained. MRI HEAD FINDINGS: Brain: No cerebellar tonsil herniation. Pituitary gland is not enlarged.No restricted diffusion to indicate acute or subacute ischemia. Nointraparenchymal susceptibility artifact to indicate hemorrhage. Mildcerebellar atrophy. There are a few scattered subcentimeter [id number] white matter lesions which are of doubtful significance. Nocorpus callosum, brainstem or cerebellar lesions. No mass, mass effect,midline shift or extra-axial fluid collections. Ventricles: No hydrocephalus. Vasculature: Normal vascular flow-voids. Orbits: Normal. Mastoids/Middle Ear/Paranasal Sinuses: Mild ethmoid sinus mucosalthickening. Soft Tissues: Unremarkable. Bone Marrow: Unremarkable. IMPRESSION: No evidence of multiple sclerosis. No findings to account for thepatient's symptoms. POS - [id number] Pedro Rivas MD IMG MR HEAD/NECK Final Resul t documented in this encounter Visit Diagnoses Diagnosis Ataxia- Primary Lack of coordination Numbness Disturbance of skin sensation Ataxia Lack of coordination Numbness Disturbance of skin sensation documented in this encounter Additional Health Concerns Infection Onset Date Last Indicated Resolved Time COVID-19 11/29/2022 11/29/2022 12/20/2022 1:21 AM EDT CoV-Risk Comment:Per Ambulatory Triage Form 11/30/2022 11/30/202211/30 8:26 AM EDT documented as of this encounter Care Teams I&C Tech Relationship Specialty Start Date End Date Alonso Denney MD [address] [place] [address], [address] [place] [address] PCP - General 07/02/17 Alonso Denney MD [address] [place] [address], [address] [place] [address] Historical LMR Provider 07/08/17 Fátima Cha MD [address] [place] [address], [address] [place] [address] Historical LMR Provider 07/08/17 09/24/21 Josephine Beltran NP [address] [place] [address] [address] [place] [address] Historical LMR Provider 07/08/17 2 Prudence Mishra MD [address] [place] [address] Historical LMR Provider 07/08/17 Jarrell Pretty MD [address] [place] [address] Historical LMR Provider 07/08/17 09/24/21 Homa Richards MD [address] [place] [address] [facility], [place] [address] Historical LMR Provider 07/08/17 Alonso Denney MD [address] [place] [address], [address] [place] [address] [email or web address] Insurance Assigned Provider 01/18/19 documented as of this encounter Additional Source Comments The information contained in this document represents components of the legal health record. It is not the complete legal health record.[facility]
--- OUTSIDE RECORDS SUMMARY | 2025-06-04 12:11 | XMS_ITS | Encounter Summary ---
Author Organization [facility] Address [address] [place] [address] Phone Care Team Providers Care Logging Tractor Operator Swamp Name Role Phone Alonso Denney MD Unavailable [phone] Alonso Denney MD Primary Care Provider + [phone] Homa Richards MD Unavailable [phone] Alonso Denney MD Unavailable [phone] Encounter Details Date Type Department Care Team (Late st Contact Info) Description 06/22/2022 Procedure Pass [facility], [address] [address] Social History Tobacco Use Types Packs/Day Years Used Date Smoking Tobacco: Never Smokeless Tobacco: Never Alcohol Use Standard Drinks/Week Comments Not Currently 1 (1 standard drink = 0.6 oz pur e alcohol) wine on occasion Child or Family Care Answer Date Record ed Do you have problems with on e of the following making it difficult for you to work, study, or receive health care? No 12/21/2021 Education Answer Date Recorded Are you interested in help w ith more adult education (for example, completing high school, GED, job training, learning the Chinese language, technical skills, or developing parenting skills)? No 12/21/2021 Food Answer Date Recorded Within the past 6 months we worried whether our food would run out before we got money to buy more. Never True 12/21/2021 Within the past 6 months the food we bought just didn't last and we didn't have enough money to get more. Never True Paying for Meds Answer Date Recorded Do you have trouble paying for medicines? No 12/21/2021 Paying Utility Bills Answer Date Record ed Do you have trouble paying your heating or elect ricity bill? No 12/21/2021 Transportation Answer Date Recorded Has the lack of transportati on kept you from medical appointments or from getting medications? No 12/21/2021 Comments No Sex and Gender Information Value Date Recorded Sex Assigned at Female 03/08/2020 12:06 PM EDT Legal Sex Female 9:51 PM EDT Gender Identity Female 03/08/2020 12:06 PM EDT Sexual Orientation Straight 03/08/2020 12 :06 PM EDT documented as of this encounter Plan of Treatment Upcoming Encounters Date Type Department Care Team (Late st Contact Info) Description 03/13/2025 Procedure Pass [facility] [address] [place] [address] 06/22/2025 11:00 AM EDT Office Visit [address] [place] [address] Alonso Denney MD [address] [place] [address], [address] [place] [address] 08/11/2025 3:00 PM EST Nurse Only [address] [place] [address] Alonso Denney MD [address] [place] [address], [address] [place] [address] 08/17/2025 2:45 PM EST Appointment Echo [facility] [address] [place] [address] Ese Grier DNP [address] [place] [address], [address] [place] [address] 09/21/2025 10:30 AM EST Office Visit [facility] [address] [place] [address] 3rd Floor, [address] [place] [address] Star Goodman DO [address] [facility] [address] [place] [address] 01/05/2026 9:10 AM EDT Office Visit [facility] Rheumatology [address] [place] [address] Angle Rouse MD, MPH [address] [facility], [address] [place] [address] documented as of this encounter Visit Diagnoses Not on filedocumented in this encounter Additional Health Concerns Infection Onset Date Last Indicated Resolved Time COVID-19 11/29/2022 11/29/2022 12/20/2022 1:21 AM EDT CoV-Risk Comment:Per Ambulatory Triage Form 11/30/2022 11/30/202211/30 8:26 AM EDT Assessment Noted Time PHQ-2 Depression Total Score: 1 12/22/19 22 9:30 AM EDT documented as of this encounter Care Teams Logging Tractor Operator Swamp Relationship Specialty Start Date End Date Alonso Denney MD [address] [place] [address], [address] [place] [address] PCP - General 07/02/17 Alonso Denney MD [address] [place] [address], [address] [place] [address] Historical LMR Provider 07/08/17 Homa Richards MD [address] [place] [address] Orthopedics & Sports Medicine, [facility] [place], [place] [id number] Historical LMR Provider 07/08/17 Alonso Denney MD [address] [place] [address], [address] [place] [address] [email or web address] Insurance Assigned Provider 01/18/19 documented as of this encounter Additional Source Comments The information contained in this document represents components of the legal health record. It is not the complete legal health record.[facility]
--- OUTSIDE RECORDS SUMMARY | 2025-06-04 12:11 | XMS_ITS | Encounter Summary ---
Author Organization [facility] Address [address] [facility] [address] [place] [address] Phone Care Team Providers Care Referral Nurse Name Role Phone Alonso Denney MD Unavailable [phone] Fátima Cha MD Unavailable [phone] Alonso Denney MD Primary Care Provider [phone] Josephine Beltran NP Unavailable [phone] Prudence Mishra MD Unavailable [phone] Jarrell Pretty MD Unavailable [phone] Homa Richards MD Unavailable [phone] Alonso Denney MD Unavailable [phone] Encounter Details Date Type Department Care Team (Late st Contact Info) Description 11/03/2019 Procedure Pass [facility], [address] [address] Social History Tobacco Use Types Packs/Day Years [...] PM EDT documented as of this encounter Last Filed Vital Signs Vital Sign Reading Time Taken Comments Blood Pressure - - Pulse - - Temperature - - Respiratory Rate - - Oxygen Saturation - - Inhaled Oxygen Concentration - - Weight 65.8 kg (145 lb) 11/04/2019 11:38 AM EST Height 172.7 cm (5' 8 ) 11/04/2019 11:38 AM EST Body Mass Index 22.05 11/04/2019 11:38 AM EST documented in this encounter Plan of Treatment Upcoming Encounters Date Type Department Care Team (Late st Contact Info) Description 03/13/2025 Procedure Pass [facility] [address] [place] [address] 06/22/2025 11:00 AM EDT Office Visit [address] [place] [address] Alonso Denney MD [address] [place] [address], [address] [place] [address] 08/11/2025 3:00 PM EST Nurse Only [address] [place] [address] Alonso Denney MD [address] [place] [address], [address] [place] [address] 08/17/2025 2:45 PM EST Appointment [facility] [address] [place] [address] Ese Grier DNP [address] [place] [address], [address] [place] [address] 09/21/2025 10:30 AM EST Office Visit [facility] [address] [place] [address] 3rd Floor, [address] [place] [address] Star Goodman DO [address] [place] [address] 01/05/2026 9:10 AM EDT Office Visit [facility] Rheumatology 22 [place] [address] Angle Rouse MD, MPH 22 [facility], [address] [place] [address] [email or web address] documented as of this encounter Visit Diagnoses Not on filedocumented in this encounter Additional Health Concerns Infection Onset Date Last Indicated Resolved Time COVID-19 11/29/2022 11/29/2022 12/20/2022 1:21 AM EDT CoV-Risk Comment:Per Ambulatory Triage Form 11/30/2022 11/30/202211/30 8:26 AM EDT documented as of this encounter Care Teams Referral Nurse Relationship Specialty Start Date End Date Alonso Denney MD [address] [place] [address], [address] [place] [address] PCP - General 07/02/17 Alonso Denney MD [address] [place] [address], [address] [place] [address] Historical LMR Provider 07/08/17 Fátima Cha MD [address] [place] [address], [address] [place] [address] [email or web address] Historical LMR Provider 07/08/17 09/24/21 Josephine Beltran NP [address] [place] [address] Historical LMR Provider 07/08/17 2 Prudence Mishra MD [address] [place] [address], 2nd [place] [address] Historical LMR Provider 07/08/17 Jarrell Pretty MD [address] [place] [address], 2[address] [place] [address] Historical LMR Provider 07/08/17 09/24/21 Homa Richards MD [address] [place] [address] [facility] Sports Medicine, [place] [address] Historical LMR Provider 07/08/17 Alonso Denney MD [address] [place] [address], [address] [place] [address] [email or web address] Insurance Assigned Provider 01/18/19 documented as of this encounter Additional Source Comments The information contained in this document represents components of the legal health record. It is not the complete legal health record.[facility]
--- OUTSIDE RECORDS SUMMARY | 2025-06-04 12:11 | XMS_ITS | Encounter Summary ---
Author Organization [facility] Address [address] [place] [address] Phone Care Team Providers Care Remarketing Manager Name Role Phone Alonso Denney MD Unavailable [phone] Alonso Denney MD Primary Care Provider + [phone] Homa Richards MD Unavailable [phone] Encounter Details Date Type Department Care Team (Late st Contact Info) Description 06/24/2024 Procedure Pass [facility] [address] [place] [address] Social History Tobacco Use Types Packs/Day Years [...] high school, GED, job training, learning the Tristanian language, technical skills, or developing parenting skills)? No 12/22/2022 Food Answer Date Recorded Within the past [...] your housing situation today? I have teresa quiroga 12/22/2022 How many times have you move [...] as food, clothing, or medical care? No 06/18/2024 In the past 12 months have y ou been in a relationship with a person who hurts, threatens, or tries to control you? No 06/18/2024 Are you denied basic needs s uch as food, clothing, or medical care? No 06/18/2024 In the past 12 months have y ou been in a relationship with a person who hurts, threatens, or tries to control you? No 06/18/2024 Comments No Sex and Gender Information Value Date Recorded Sex Assigned at Female 03/08/2020 12:06 PM EDT Legal Sex Female 9:51 PM EDT Gender Identity Female 03/08/2020 12:06 PM EDT Sexual Orientation Straight 03/08/2020 12 :06 PM EDT documented as of this encounter Plan of Treatment Upcoming Encounters Date Type Department Care Team (Late st Contact Info) Description 03/13/2025 Procedure Pass [facility] [address] [place] [address] 06/22/2025 11:00 AM EDT Office Visit [facility] [address] [place] [address] [place] [address] Alonso Denney MD [address] [place] [address], [address] [place] [address] 08/11/2025 3:00 PM EST Nurse Only [facility] [address] [place] [address] [place] [address] Alonso Denney MD [address] [place] [address], [address] [place] [address] 08/17/2025 2:45 PM EST Appointment Echo [facility] [address] [place] [address] Ese Grier DNP [address] [place] [address], [address] [place] [address] 09/21/2025 10:30 AM EST Office Visit [facility] [address] [place] [address] 3rd Floor, [address] [place] [address] Star Goodman DO [address] [place] [address] [address] [place] [address] 01/05/2026 9:10 AM EDT Office Visit [facility] Rheumatology [address] [place] [address] [place] [address] Angle Rouse MD, MPH [address] [place] [address], [address] [place] [address] documented as of this encounter Visit Diagnoses Not on filedocumented in this encounter Additional Health Concerns Assessment Noted Time PHQ-2 Depression Total Score: 0 06/18/20 24 1:39 PM EDT documented as of this encounter Care Teams Remarketing Manager Relationship Specialty Start Date End Date Alonso Denney MD [address] [place] [address], [address] [place] [address] [email or web address] PCP - General 07/02/17 Alonso Denney MD [address] [place] [address], [address] [place] [address] Historical LMR Provider 07/08/17 Homa Richards MD [address] [place] [address] [facility] Sports Medicine, [place] [address] [email or web address] Historical LMR Provider 07/08/17 documented as of this encounter Additional Source Comments The information contained in this document represents components of the legal health record. It is not the complete legal health record.[facility]
--- OUTSIDE RECORDS SUMMARY | 2025-06-04 12:11 | XMS_ITS | Encounter Summary ---
Author Organization [facility] Address [address] [place] [address] [place] [address] Phone Care Team Providers Care Rail Car Repairer Name Role Phone Alonso Denney MD Unavailable [phone] Fátima Cha MD Unavailable [phone] Alonso Denney MD Primary Care Provider [phone] Josephine Beltran NP Unavailable [phone] Prudence Mishra MD Unavailable [phone] Jarrell Pretty MD Unavailable [phone] Homa Richards MD Unavailable [phone] Alonso Denney MD Unavailable [phone] Encounter Details Date Type Department Care Team (Late st Contact Info) Description 10/30/2019 Procedure Pass [facility] Admitting Dept Virtual Department [address] [place] [address] Social History Tobacco Use Types Packs/Day Years [...] Encounters Date Type Department Care Team (Late Contact Info) Description 03/13/2025 Procedure Pass [facility] [address] [place] [address] 06/22/2025 11:00 AM EDT Office Visit [address] [place] [address] Alonso Denney MD [address] [place] [address], [address] [place] [address] 08/11/2025 3:00 PM EST Nurse Only [address] [place] [address] Alonso Denney MD [address] [place] [address], [address] [place] [address] 08/17/2025 2:45 PM EST Appointment Echo [facility] [address] [place] [address] Ese Grier DNP [address] [place] [address], [address] [place] [address] 09/21/2025 10:30 AM EST Office Visit [facility] [address] [place] [address] Dr 3rd Floor, [address] [place] [address] Star Goodman DO [address] [place] [address] [place] [address] 01/05/2026 9:10 AM EDT Office Visit [facility] Rheumatology [address] [place] [address] [place] [address] Angle Rouse MD, MPH [address] [place] [address], [address] [address] documented as of this encounter Visit Diagnoses Not on filedocumented in this encounter Additional Health Concerns Infection Onset Date Last Indicated Resolved Time COVID-19 11/29/2022 11/29/2022 12/20/2022 1:21 AM EDT CoV-Risk Comment:Per Ambulatory Triage Form 11/30/2022 11/30/202211/30 8:26 AM EDT documented as of this encounter Care Teams Rail Car Repairer Relationship Specialty Start Date End Date Alonso Denney MD [address] [place] [address], [address] [place] [address] PCP - General 07/02/17 Alonso Denney MD [address] [place] [address], [address] [place] [address] Historical LMR Provider 07/08/17 Fátima Cha MD [address] [place] [address] Historical LMR Provider 07/08/17 09/24/21 Josephine Beltran NP [address] [place] [address] Historical LMR Provider 07/08/17 2 Prudence Mishra MD [address] [place] [address] Historical LMR Provider 07/08/17 Jarrell Pretty MD [address] [place] [address] Historical LMR Provider 07/08/17 09/24/21 Homa Richards MD [address] [place] [address] Orthopedics & Sports Medicine, [facility] [place] [address] [email or web address] Historical LMR Provider 07/08/17 Alonso Denney MD [address] [place] [address], [address] [place] [address] [email or web address] Insurance Assigned Provider 01/18/19 documented as of this encounter Additional Source Comments The information contained in this document represents components of the legal health record. It is not the complete legal health record.[facility]
--- OUTSIDE RECORDS SUMMARY | 2025-06-04 12:11 | XMS_ITS | Encounter Summary ---
Author Organization [facility] Address [address] [place] [address] Phone Care Team Providers Care Architectural Draftsman Name Role Phone Alonso Denney MD Unavailable [phone] Alonso Denney MD Primary Care Provider + [phone] Homa Richards MD Unavailable [phone] Encounter Details Date Type Department Care Team (Late st Contact Info) Description 03/14/2024 Procedure Pass [facility], [address] [address] Social History Tobacco Use Types Packs/Day Years [...] high school, GED, job training, learning the Norwegian language, technical skills, or developing parenting skills)? [...] with a working camera? Not on file Comments No Sex and Gender Information Value Date Recorded Sex Assigned at Female 03/08/2020 12:06 PM EDT Legal Sex Female 9:51 PM EDT Gender Identity Female 03/08/2020 12:06 PM EDT Sexual Orientation Straight 03/08/2020 12 :06 PM EDT documented as of this encounter Plan of Treatment Upcoming Encounters Date Type Department Care Team (Late st Contact Info) Description 03/13/2025 Procedure Pass [facility] [address] [place] [address] 06/22/2025 11:00 AM EDT Office Visit [address] [place] [address] Alonso Denney MD [address] [place] [address], [address] [place] [address] 08/11/2025 3:00 PM EST Nurse Only Ole [facility] [address] [place] [address] Alonso Denney MD [address] [place] [address], [address] [place] [address] 08/17/2025 2:45 PM EST Appointment Echo Lab [address] [place] [address] Ese Grier DNP [address] [facility], [address] [place] [address] 09/21/2025 10:30 AM EST Office Visit [facility] [address] [place] [address] Dr 3rd Floor, [address] [place] [address] Star Goodman DO [address] [facility] [address] [place] [address] 01/05/2026 9:10 AM EDT Office Visit [facility] Rheumatology [address] [place] [address] [place] [address] Angle Rouse MD, MPH [address] [facility], [address] [place] [address] documented as of this encounter Visit Diagnoses Not on filedocumented in this encounter Additional Health Concerns Assessment Noted Time PHQ-2 Depression Total Score: 0 03/14/20 24 9:39 AM EDT documented as of this encounter Care Teams Architectural Draftsman Relationship Specialty Start Date End Date Alonso Denney MD [address] [place] [address], [address] [place] [address] PCP - General 07/02/17 Alonso Denney MD [address] [place] [address], [address] [place] [address] Historical LMR Provider 07/08/17 Homa Richards MD [address] [place] [address] Orth[facility] Medicine, [place] [address] [email or web address] Historical LMR Provider 07/08/17 documented as of this encounter Additional Source Comments The information contained in this document represents components of the legal health record. It is not the complete legal health record.[facility]
--- OUTSIDE RECORDS SUMMARY | 2025-06-04 12:11 | XMS_ITS | Encounter Summary ---
Author Organization [facility] Address [address] [place] [address] Phone Care Team Providers Care Automatic Pinsetter Adjuster Name Role Phone Alonso Denney MD Unavailable [phone] Alonso Denney MD Primary Care Provider + [phone] Homa Richards MD Unavailable [phone] Alonso Denney MD Unavailable [phone] Encounter Details Date Type Department Care Team (Late st Contact Info) Description 04/04/2023 Procedure Pass [facility], [address] [address] Social History Tobacco Use Types Packs/Day Years [...] high school, GED, job training, learning the Bhutanese language, technical skills, or developing parenting skills)? [...] Info) Description 03/13/2025 Procedure Pass [facility] [address] [place] [address] 06/22/2025 11:00 AM EDT Office Visit [facility] [address] [place] [address] Alonso Denney MD [address] [place] [address], [address] [place] [address] 08/11/2025 3:00 PM EST Nurse Only [facility] [address] [place] [address] Alonso Denney MD [address] [place] [address], [address] [place] [address] 08/17/2025 2:45 PM EST Appointment Echo Lab [address] [place] [address] sEe Grier DNP [address] [facility], [address] [place] [address] 09/21/2025 10:30 AM EST Office Visit [facility] [address] [place] [address] Dr 3rd Floor, [address] [place] [address] Star Goodman DO [address] [facility] [address] [place] [address] 01/05/2026 9:10 AM EDT Office Visit [facility] Rheumatology [address] [place] [address] [place] [address] Angle Rouse MD, MPH [address] [facility], [address] [place] [address] documented as of this encounter Visit Diagnoses Not on filedocumented in this encounter Additional Health Concerns Assessment Noted Time PHQ-2 Depression Total Score: 0 12/23/19 23 9:02 AM EDT documented as of this encounter Care Teams Automatic Pinsetter Adjuster Relationship Specialty Start Date End Date Alonso Denney MD [address] [place] [address], [address] [place] [address] PCP - General 07/02/17 Alonso Denney MD [address] [place] [address], [address] [place] [address] Historical LMR Provider 07/08/17 Homa Richards MD [address] [place] [address] [facility] [place] [address] [email or web address] Historical LMR Provider 07/08/17 Alonso Denney MD [address] [place] [address], [address] [place] [address] [email or web address] Insurance Assigned Provider 01/18/19 documented as of this encounter Additional Source Comments The information contained in this document represents components of the legal health record. It is not the complete legal health record.[facility]
--- OUTSIDE RECORDS SUMMARY | 2025-06-04 12:11 | XMS_ITS | Encounter Summary ---
Author Organization [facility] Address [address] [place] [address] [place] [address] Phone Care Team Providers Care Head Pastry Chef Name Role Phone Alonso Denney MD Unavailable [phone] Fátima Cha MD Unavailable [phone] Alonso Denney MD Primary Care Provider [phone] Josephine Beltran NP Unavailable [phone] Prudence Mishra MD Unavailable [phone] Jarrell Pretty MD Unavailable [phone] Homa Richards MD Unavailable [phone] Alonso Denney MD Unavailable [phone] Encounter Details Date Type Department Care Team (Late st Contact Info) Description 10/25/2017 Procedure Pass [facility]oscopy Admitting Dept Virtual Department [address] [place] [address] Social History Tobacco Use Types Packs/Day Years Used Date Smoking Tobacco: Never Smokeless Tobacco: Never Alcohol Use Standard Drinks/Week Comments Yes 0 (1 standard drink = 0.6 oz pur e alcohol) occ Comments No Sex and Gender Information Value Date Recorded Sex Assigned at Female 03/08/2020 12:06 PM EDT Legal Sex Female 9:51 PM EDT Gender Identity Female 03/08/2020 12:06 PM EDT Sexual Orientation Straight 03/08/2020 12 :06 PM EDT documented as of this encounter Plan of Treatment Upcoming Encounters Date Type Department Care Team (Late Contact Info) Description 03/13/2025 Procedure Pass [facility] [address] [place] [address] 06/22/2025 11:00 AM EDT Office Visit [address] [place] [address] Alonso Denney MD [address] [place] [address], [address] [place] [address] 08/11/2025 3:00 PM EST Nurse Only [address] [place] [address] Alonso Denney MD [address] [place] [address], [address] [place] [address] 08/17/2025 2:45 PM EST Appointment Echo Lab [address] [place] [address] Ese Grier DNP [address] [place] [address], [address] [place] [address] 09/21/2025 10:30 AM EST Office Visit [facility] [address] [place] [address] Dr 3rd Floor, [address] [place] [address] Star Goodman DO [address] [place] [address] [place] [address] 01/05/2026 9:10 AM EDT Office Visit [facility] Rheumatology [address] [place] [address] [place] [address] Angle Rouse MD, MPH [address] [place] [address], [address] [address] documented as of this encounter Visit Diagnoses Not on filedocumented in this encounter Additional Health Concerns Infection Onset Date Last Indicated Resolved Time COVID-19 11/29/2022 11/29/2022 12/20/2022 1:21 AM EDT CoV-Risk Comment:Per Ambulatory Triage Form 11/30/2022 11/30/202211/30 8:26 AM EDT documented as of this encounter Care Teams Head Pastry Chef Relationship Specialty Start Date End Date Alonso Denney MD [address] [place] [address], [address] [place] [address] PCP - General 07/02/17 Alonso Denney MD [address] [place] [address], [address] [place] [address] Historical LMR Provider 07/08/17 Fátima Cha MD [address] [place] [address] Historical LMR Provider 07/08/17 09/24/21 Josephine Beltran NP [address] [place] [address] Historical LMR Provider 07/08/17 2 Prudence Mishra MD [address] [place] [address] Historical LMR Provider 07/08/17 Jarrell Pretty MD [address] [place] [address] Historical LMR Provider 07/08/17 09/24/21 Homa Richards MD [address] [place] [address] Orthopedics & Sports Medicine, [place] [address] [email or web address] Historical LMR Provider 07/08/17 Alonso Denney MD [address] [place] [address], [address] [place] [address] [email or web address] Insurance Assigned Provider 01/18/19 documented as of this encounter Additional Source Comments The information contained in this document represents components of the legal health record. It is not the complete legal health record.[facility]
--- OUTSIDE RECORDS SUMMARY | 2025-06-04 12:11 | XMS_ITS | Encounter Summary ---
Author Organization [facility] Address [address] [facility] [address] [place] [address] Phone Care Team Providers Care Director Recreation Center Name Role Phone Alonso Denney MD Unavailable [phone] Alonso Denney MD Primary Care Provider + [phone] Homa Richards MD Unavailable [phone] Encounter Details Date Type Department Care Team (Late st Contact Info) Description 05/15/2025 Orders Only [facility] [address] [place] [address] Provider, MD Eric [address] [place] [address] Social History Tobacco Use Types Packs/Day Years [...] Description 03/13/2025 Procedure Pass Echo Lab [address] [place] [address] 06/22/2025 11:00 AM EDT Office Visit [facility] [address] [place] [address] [place] [address] Alonso Denney MD [address] [place] [address], [address] [place] [address] 08/11/2025 3:00 PM EST Nurse Only [address] [place] [address] Alonso Denney MD [address] [place] [address], [address] [place] [address] 08/17/2025 2:45 PM EST Appointment Echo Lab [address] [place] [address] Ese Grier DNP [address] [place] [address], [address] [place] [address] 09/21/2025 10:30 AM EST Office Visit [facility] [address] [place] [address] 3rd Floor, [address] [place] [address] Star Goodman DO [address] [place] [address] [place] [address] 01/05/2026 9:10 AM EDT Office Visit [facility] [place] Rheumatology [address] [place] [address] [place] [address] Angle Rouse MD, MPH [address] [place] [address], [address] [place] [address] documented as of this encounter Procedures Procedure Name Priority Date/Time Associated Diagnosis Comments OUTSIDE IMAGING Routine 05/14/2025 9:42 AM EDT documented in this encounter Results * Outside Imaging Report Only (05/14/2025 9:42 AM EDT) us Historical Provider MD VELÁZQUEZ XR CHEST Edited Re sult - Final documented in this encounter Visit Diagnoses Not on filedocumented in this encounter Additional Health Concerns Assessment Noted Time PHQ-2 Depression Total Score: 0 06/18/20 24 1:39 PM EDT documented as of this encounter Care Teams Director Recreation Center Relationship Specialty Start Date End Date Alonso Denney MD [address] [facility], [address] [place] [address] PCP - General 07/02/17 Alonso Denney MD [address] [place] [address], [address] [place] [address] Historical LMR Provider 07/08/17 Homa Richards MD [address] [place] [address] Orthopedics [facility] Sports Medicine, [place] [address] Historical LMR Provider 07/08/17 documented as of this encounter Additional Source Comments The information contained in this document represents components of the legal health record. It is not the complete legal health record.[facility]
--- OUTSIDE RECORDS SUMMARY | 2025-06-04 12:11 | XMS_ITS | Encounter Summary ---
Author Organization [facility] Address [address] [employer] [facility] [address] [place] [address] Phone Care Team Providers Care Bdc Manager Name Role Phone Alonso Denney MD Unavailable [phone] Fátima Cha MD Unavailable [phone] Alonso Denney MD Primary Care Provider [phone] Josephine Beltran NP Unavailable [phone] Prudence Mishra MD Unavailable [phone] Jarrell Pretty MD Unavailable [phone] Homa Richards MD Unavailable [phone] Alonso Denney MD Unavailable [phone] Encounter Details Date Type Department Care Team (Late st Contact Info) Description 06/04/2020 Procedure Pass [facility], [address] [address] Social History Tobacco Use Types Packs/Day Years [...] - Inhaled Oxygen Concentration - - Weight 68 kg (150 lb) 06/07/2020 7:42 PM EDT Height 172.7 cm (5' 8 ) 06/07/2020 7:42 PM EDT Body Mass Index 22.81 06/07/2020 7:42 PM EDT documented in this encounter Plan of Treatment Upcoming Encounters Date Type Department Care Team (Late st Contact Info) Description 03/13/2025 Procedure Pass Echo Lab [address] [place] [address] 06/22/2025 11:00 AM EDT Office Visit [address] [place] [address] Alonso Denney MD [address] [place] [address], [address] [place] [address] 08/11/2025 3:00 PM EST Nurse Only [address] [place] [address] Alonso Denney MD [address] [place] [address], [address] [place] [address] [email or web address] 08/17/2025 2:45 PM EST Appointment Echo Lab [address] [place] [address] Ese Grier DNP [address] [place] [address], [address] [place] [address] 09/21/2025 10:30 AM EST Office Visit [facility] [address] [place] [address] 3rd Floor, [address] [place] [address] Star Goodman DO [address] [place] [address] 01/05/2026 9:10 AM EDT Office Visit [facility] Rheumatology [address] [place] [address] [place] [address] Angle Rouse MD, MPH [address] [facility], [address] [place] [address] [email or web address] documented as of this encounter Visit Diagnoses Not on filedocumented in this encounter Additional Health Concerns Infection Onset Date Last Indicated Resolved Time COVID-19 11/29/2022 11/29/2022 12/20/2022 1:21 AM EDT CoV-Risk Comment:Per Ambulatory Triage Form 11/30/2022 11/30/202211/30 8:26 AM EDT Assessment Noted Time PHQ-2 Depression Total Score: 0 01/23/20 11:47 AM EDT documented as of this encounter Care Teams Bdc Manager Relationship Specialty Start Date End Date Alonso Denney MD [address] [facility], [address] [place] [address] [email or web address] PCP - General 07/02/17 Alonso Denney MD [address] [place] [address], [address] [place] [address] [email or web address] Historical LMR Provider 07/08/17 Fátima Cha MD [address] [place] [address], [address] [place] [address] [email or web address] Historical LMR Provider 07/08/17 09/24/21 Josephine Beltran NP [address] [place] [address] Historical LMR Provider 07/08/17 2 Prudence Mishra MD [address] [place] [address], 2nd [place] [address] Historical LMR Provider 07/08/17 Jarrell Pretty MD [address] [place] [address], 2nd [place] [address] Historical LMR Provider 07/08/17 09/24/21 Homa Richards MD [address] [place] [address] [facility] Medicine, [place] [address] Historical LMR Provider 07/08/17 Alonso Denney MD [address] [place] [address], [address] [place] [address] [email or web address] Insurance Assigned Provider 01/18/19 documented as of this encounter Additional Source Comments The information contained in this document represents components of the legal health record. It is not the complete legal health record.[facility]
--- OUTSIDE RECORDS SUMMARY | 2025-06-04 12:11 | XMS_ITS | Encounter Summary ---
Author Organization [facility] Address [address] [facility] [address] [place] [address] Phone Care Team Providers Care Tooling Specialist Name Role Phone Alonso Denney MD Unavailable [phone] Alonso Denney MD Primary Care Provider + [phone] Homa Richards MD Unavailable [phone] Alonso Denney MD Unavailable [phone] Encounter Details Date Type Department Care Team (Latest Contact Info) Description 07/06/2023 Transcribe Orders Virtual Department [address] [place], [place] [id number] Alonso Denney MD [address] [facility], [address] [place] [address] [email or web address] Breast screening (Primary Dx) Social History Tobacco Use Types [...] high school, GED, job training, learning the Divehi language, technical skills, or developing parenting skills)? [...] Info) Description 03/13/2025 Procedure Pass Echo Lab [address] [place] [address] 06/22/2025 11:00 AM EDT Office Visit [address] [place] [address] Alonso Denney MD [address] [facility], [address] [place] [address] 08/11/2025 3:00 PM EST Nurse Only [facility] [address] [place] [address] Alonso Denney MD [address] [place] [address], [address] [place] [address] 08/17/2025 2:45 PM EST Appointment Echo Lab [address] [place] [address] Ese Grier DNP [address] [facility], [address] [place] [address] 09/21/2025 10:30 AM EST Office Visit [facility] [address] [place] [address] 3rd Floor, [address] [place] [address] Star Goodman DO [address] [place] [address] [place] [address] 01/05/2026 9:10 AM EDT Office Visit [facility] Rheumatology [address] [place] [address] [place] [address] Angle Rouse MD, MPH [address] [place] [address], [address] [place] [address] documented as of this encounter Results * BI MAMMOGRAM SCREENING WITH TOMOSYNTHESIS WITH CAD (BILATERAL) (10/03/2023 10:57 AM EST) Anatomical Region Laterality Modality Breast Left, Breast Right, Breast Bilateral Bila teral Mammography 10/11/2023 8:39 AM EST Impressions 10/11/2023 8:40 AM EST No mammographic evidence of malignancy in either breast. Annual screening mammography is recommended. BI-RADS CATEGORY: 2 - Benign finding. The patient will be notified of the results and recommendations. Narrative 10/11/2023 8:40 AM EST BI MAMMOGRAM SCREENING WITH TOMOSYNTHESIS WITH CAD (BILATERAL) Additional patient information: Screening. COMPARISON: Comparison is made with relevant prior imaging. Breast composition: The breast tissue is heterogeneously dense, which could obscure a lesion on mammography. FINDINGS: Previous surgical biopsy in both breasts. No abnormal masses, suspicious calcifications, or other significant findings are identified mammographically in either breast. Procedure Note Alberta Huitron MD - 10/11/2023 BI MAMMOGRAM SCREENING WITH TOMOSYNTHESIS WITH CAD (BILATERAL) Additional patient information: Screening. COMPARISON: Comparison is made with relevant prior imaging. Breast composition: The breast tissue is heterogeneously dense, whichcould obscure a lesion on mammography. FINDINGS: Previous surgical biopsy in both breasts. No abnormal masses, suspicious calcifications, or other significantfindings are identified mammographically in either breast. IMPRESSION: No mammographic evidence of malignancy in either breast. Annual screening mammography is recommended. BI-RADS CATEGORY: 2 - Benign finding. The patient will be notified of the results and recommendations. Alonso Denney MD IMG MG EXAMS Final Resu lt documented in this encounter Visit Diagnoses Diagnosis Breast screening- Primary Breast screening, unspecified Breast screening Breast screening, unspecified documented in this encounter Additional Health Concerns Assessment Noted Time PHQ-2 Depression Total Score: 0 12/23/19 23 9:02 AM EDT documented as of this encounter Care Teams Tooling Specialist Relationship Specialty Start Date End Date Alonso Denney MD [address] [place] [address], [address] [place] [address] PCP - General 07/02/17 Alonso Denney MD [address] [place] [address], [address] [place] [address] Historical LMR Provider 07/08/17 Homa Richards MD [address] [place] [address] [facility] [place] [address] [email or web address] Historical LMR Provider 07/08/17 Alonso Denney MD [address] [place] [address], [address] [place] [address] [email or web address] Insurance Assigned Provider 01/18/19 documented as of this encounter Additional Source Comments The information contained in this document represents components of the legal health record. It is not the complete legal health record.[facility]
--- OUTSIDE RECORDS SUMMARY | 2025-06-04 12:11 | XMS_ITS | Encounter Summary ---
Author Organization [facility] Address [address] [place] [address] Phone Care Team Providers Care Branch Operation Evaluation Manager Name Role Phone Alonso Denney MD Unavailable [phone] Alonso Denney MD Primary Care Provider + [phone] Homa Richards MD Unavailable [phone] Encounter Details Date Type Department Care Team (Late st Contact Info) Description 11/16/2023 Ancillary Orders [address] [id number] Homa Richards MD [address] [place] [address] [facility], [place], [place] [id number] [email or web address] Acute pain of right hip (Primary Dx) Social History Tobacco Use Types [...] high school, GED, job training, learning the Polish language, technical skills, or developing parenting skills)? [...] PM EDT documented as of this encounter Functional Status * Calculated C-SSRS Risk Score (Lifetime/Recent) Answer Date of Assessment Author No Risk Indicated 11/18/2023 8:25 AM Christi Goodson RN * [place] Suicide Severity Rating Scale (Screener/Recent Self-Report) Question Answer Date of Assessment Author 1. Wish to be (Past 1 Month) No 11/18/2023 8:25 AM Billy Palmer RN 2. Non-Specific Active Suicidal Thoughts (Past 1 Month) No 11/18/2023 8:25 AM Billy Palmer RN 6. Suicidal Behavior (Lifetime) No 11/18/2023 8:25 AM EST Sebas, Stac ie F, RN documented as of this encounter Plan of Treatment Upcoming Encounters Date Type Department Care Team (Late st Contact Info) Description 03/13/2025 Procedure Pass Echo Lab [address] [place] [address] 06/22/2025 11:00 AM EDT Office Visit [address] [place] [address] Alonso Denney MD [address] [place] [address], [address] [place] [address] 08/11/2025 3:00 PM EST Nurse Only [address] [place] [address] Alonso Denney MD [address] [place] [address], [address] [place] [address] 08/17/2025 2:45 PM EST Appointment Echo Lab [address] [place] [address] Ese Grier DNP [address] [place] [address], [address] [address] 09/21/2025 10:30 AM EST Office Visit [facility] [address] [place] [address] 3rd Floor, [address] [place] [address] Star Goodman DO [address] [place] [address] 01/05/2026 9:10 AM EDT Office Visit [facility] Rheumatology [address] [place] [address] [place] [address] Angle Rouse MD, MPH [address] [place] [address], [address] [place] [address] Pending Results Name Type Priority Associated Diagnoses Date /Time FL Guidance Needle Placement Non-Spine Imaging Routine Acute pain of right hip 11/20/2023 9:16 AM EST Scheduled Orders Name Type Priority Associated Diagnoses Orde r Schedule FL Guidance Needle Placement Non-Spine Imaging Routine Acute pain of right hip 1 Occurrences starting 11/16/2023 until 02/16/2024 documented as of this encounter Visit Diagnoses Diagnosis Acute pain of right hip- Primary documented in this encounter Additional Health Concerns Assessment Noted Time PHQ-2 Depression Total Score: 0 12/23/19 23 9:02 AM EDT documented as of this encounter Care Teams Branch Operation Evaluation Manager Relationship Specialty Start Date End Date Alonso Denney MD [address] [place] [address], [address] [place] [address] [facility] - General 07/02/17 Alonso Denney MD [address] [place] [address], [address] [place] [address] Historical LMR Provider 07/08/17 Homa Richards MD [address] [place] [address] [facility], [place] [address] Historical LMR Provider 07/08/17 documented as of this encounter Additional Source Comments The information contained in this document represents components of the legal health record. It is not the complete legal health record.[facility]
--- OUTSIDE RECORDS SUMMARY | 2025-06-04 12:11 | XMS_ITS | Encounter Summary ---
Author Organization [facility] Address [address] [place] [address] Phone Care Team Providers Care Internet Security Specialist Name Role Phone Alonso Denney MD Unavailable [phone] Alonso Denney MD Primary Care Provider + [phone] Homa Richards MD Unavailable [phone] Encounter Details Date Type Department Care Team (Late st Contact Info) Description 09/12/2024 Procedure Pass Echo [facility] [place] [address] Social History Tobacco Use Types Packs/Day Years [...] high school, GED, job training, learning the Yoruba language, technical skills, or developing parenting skills)? [...] Info) Description 03/13/2025 Procedure Pass Echo Lab [address] [place] [address] 06/22/2025 11:00 AM EDT Office Visit [address] [place] [address] Alonso Denney MD [address] [place] [address], [address] [place] [address] 08/11/2025 3:00 PM EST Nurse Only [facility] Medicine [address] [place] [address] [place] [address] Alonso Denney MD [address] [place] [address], [address] [place] [address] 08/17/2025 2:45 PM EST Appointment Echo Lab [address] [place] [address] Ese Grier DNP [address] [place] [address], [address] [place] [address] [email or web address] 09/21/2025 10:30 AM EST Office Visit [facility] [address] [place] [address] 3rd Floor, [address] [place] [address] Star Goodman DO [address] [place] [address] [address] [place] [address] [email or web address] 01/05/2026 9:10 AM EDT Office Visit [facility] Rheumatology [address] [place] [address] [place] [address] Angle Rouse MD, MPH [address] [place] [address], [address] [place] [address] documented as of this encounter Visit Diagnoses Not on filedocumented in this encounter Additional Health Concerns Assessment Noted Time PHQ-2 Depression Total Score: 0 06/18/20 24 1:39 PM EDT documented as of this encounter Care Teams Internet Security Specialist Relationship Specialty Start Date End Date Alonso Denney MD [address] [place] [address], [address] [place] [address] [email or web address] PCP - General 07/02/17 Alonso Denney MD [address] [place] [address], [address] [place] [address] Historical LMR Provider 07/08/17 Homa Richards MD [address] [place] [address] [facility], [place] [address] [email or web address] Historical LMR Provider 07/08/17 documented as of this encounter Additional Source Comments The information contained in this document represents components of the legal health record. It is not the complete legal health record.[facility]
--- OUTSIDE RECORDS SUMMARY | 2025-06-04 12:11 | XMS_ITS | Encounter Summary ---
Author Organization [facility] Address [address] [place] [address] Phone Care Team Providers Care Branch Operations Specialist Name Role Phone Alonso Denney MD Unavailable [phone] Alonso Denney MD Primary Care Provider + [phone] Homa Richards MD Unavailable [phone] Alonso Denney MD Unavailable [phone] Encounter Details Date Type Department Care Team (Late st Contact Info) Description 07/06/2023 Procedure Pass [facility], [address] [address] Social History Tobacco Use Types Packs/Day Years [...] high school, GED, job training, learning the Welsh language, technical skills, or developing parenting skills)? [...] Info) Description 03/13/2025 Procedure Pass [facility] [address] [place] [address] 06/22/2025 11:00 AM EDT Office Visit [facility] [address] [place] [address] Alonso Denney MD [address] [place] [address], [address] [place] [address] 08/11/2025 3:00 PM EST Nurse Only Ole Rick [address] [place] [address] Alonso Denney MD [address] [place] [address], [address] [place] [address] 08/17/2025 2:45 PM EST Appointment [facility] [address] [place] [address] Ese Grier DNP [address] [facility], [address] [place] [address] 09/21/2025 10:30 AM EST Office Visit [facility] [address] [place] [address] Dr 3rd Floor, [address] [place] [address] Star Goodman DO [address] [facility] [address] [place] [address] 01/05/2026 9:10 AM EDT Office Visit [facility] [address] [place] [address] [place] [address] Angle Rouse MD, MPH [address] [facility], [address] [place] [address] documented as of this encounter Visit Diagnoses Not on filedocumented in this encounter Additional Health Concerns Assessment Noted Time PHQ-2 Depression Total Score: 0 12/23/19 23 9:02 AM EDT documented as of this encounter Care Teams Branch Operations Specialist Relationship Specialty Start Date End Date Alonso Denney MD [address] [place] [address], [address] [place] [address] PCP - General 07/02/17 Alonso Denney MD [address] [place] [address], [address] [place] [address] Historical LMR Provider 07/08/17 Homa Richards MD [address] [place] [address] [facility] [place] [address] [email or web address] Historical LMR Provider 07/08/17 Alonso Denney MD [address] [place] [address], [address] [place] [address] [email or web address] Insurance Assigned Provider 01/18/19 documented as of this encounter Additional Source Comments The information contained in this document represents components of the legal health record. It is not the complete legal health record.[facility]
--- OUTSIDE RECORDS SUMMARY | 2025-06-04 12:11 | XMS_ITS | Encounter Summary ---
Author Organization [facility] Address [address] [place] [address] Phone Care Team Providers Care Millinery Worker Name Role Phone Alonso Denney MD Unavailable [phone] Alonso Denney MD Primary Care Provider + [phone] Homa Richards MD Unavailable [phone] Encounter Details Date Type Department Care Team (Late st Contact Info) Description 09/27/2023 Procedure Pass [facility], [address] [address] Social History Tobacco Use Types Packs/Day Years [...] high school, GED, job training, learning the Mosotho language, technical skills, or developing parenting skills)? [...] Info) Description 03/13/2025 Procedure Pass [facility] [address] [place] [address] 06/22/2025 11:00 AM EDT Office Visit [address] [place] [address] Alonso Denney MD [address] [place] [address], [address] [place] [address] [email or web address] 08/11/2025 3:00 PM EST Nurse Only Ole Rick [address] [place] [address] Alonso Denney MD [address] [place] [address], [address] [place] [address] 08/17/2025 2:45 PM EST Appointment [facility] [address] [place] [address] Ese Grier DNP [address] [facility], [address] [place] [address] 09/21/2025 10:30 AM EST Office Visit [facility] [address] [place] [address] Dr 3rd Floor, [address] [place] [address] Star Goodman DO [address] [facility] [address] [place] [address] 01/05/2026 9:10 AM EDT Office Visit [facility]ology [address] [place] [address] [place] [address] Angle Rouse MD, MPH [address] [facility], [address] [place] [address] documented as of this encounter Visit Diagnoses Not on filedocumented in this encounter Additional Health Concerns Assessment Noted Time PHQ-2 Depression Total Score: 0 12/23/19 23 9:02 AM EDT documented as of this encounter Care Teams Millinery Worker Relationship Specialty Start Date End Date Alonso Denney MD [address] [place] [address], [address] [place] [address] PCP - General 07/02/17 Alonso Denney MD [address] [place] [address], [address] [place] [address] Historical LMR Provider 07/08/17 Homa Richards MD [address] [place] [address] [facility], [place] [address] [email or web address] Historical LMR Provider 07/08/17 documented as of this encounter Additional Source Comments The information contained in this document represents components of the legal health record. It is not the complete legal health record.[facility]
--- OUTSIDE RECORDS SUMMARY | 2025-06-04 12:11 | XMS_ITS | Encounter Summary ---
Author Organization [facility] Address [address] [place] [address] Phone Care Team Providers Care Core Winding Operator Name Role Phone Alonso Denney MD Unavailable [phone] Alonso Denney MD Primary Care Provider + [phone] Homa Richards MD Unavailable [phone] Alonso Denney MD Unavailable [phone] Encounter Details Date Type Department Care Team (Late st Contact Info) Description 05/01/2023 Procedure Pass [facility] [address] [place] [address] Social History Tobacco Use Types Packs/Day Years [...] high school, GED, job training, learning the Amharic language, technical skills, or developing parenting skills)? [...] Info) Description 03/13/2025 Procedure Pass [facility] [address] [place] [address] 06/22/2025 11:00 AM EDT Office Visit [address] [place] [address] Alonso Denney MD [address] [place] [address], [address] [place] [address] 08/11/2025 3:00 PM EST Nurse Only Ole Rick [address] [place] [address] Alonso Denney MD [address] [place] [address], [address] [place] [address] 08/17/2025 2:45 PM EST Appointment [facility] [address] [place] [address] Ese Grier DNP [address] [facility], [address] [place] [address] 09/21/2025 10:30 AM EST Office Visit [facility] [address] [place] [address] Dr 3rd Floor, [address] [place] [address] Star Goodman DO [address] [facility] [address] [place] [address] 01/05/2026 9:10 AM EDT Office Visit [facility] Rheumatology [address] [place] [address] [place] [address] Angle Rouse MD, MPH [address] [place] [address], [address] [place] [address] documented as of this encounter Visit Diagnoses Not on filedocumented in this encounter Additional Health Concerns Assessment Noted Time PHQ-2 Depression Total Score: 0 12/23/19 23 9:02 AM EDT documented as of this encounter Care Teams Core Winding Operator Relationship Specialty Start Date End Date Alonso Denney MD [address] [place] [address], [address] [place] [address] PCP - General 07/02/17 Alonso Denney MD [address] [place] [address], [address] [place] [address] Historical LMR Provider 07/08/17 Homa Richards MD [address] [place] [address] [facility], [place] [address] [email or web address] Historical LMR Provider 07/08/17 Alonso Denney MD [address] [place] [address], [address] [place] [address] [email or web address] Insurance Assigned Provider 01/18/19 documented as of this encounter Additional Source Comments The information contained in this document represents components of the legal health record. It is not the complete legal health record.[facility]
--- OUTSIDE RECORDS SUMMARY | 2025-06-04 12:11 | XMS_ITS | Encounter Summary ---
Author Organization [facility] Address [address] [place] [address] [place] [address] Phone Care Team Providers Care Steam Drier Tender Name Role Phone Alonso Denney MD Unavailable [phone] Fátima Cha MD Unavailable [phone] Alonso Denney MD Primary Care Provider + [phone] Josephine Beltran NP Unavailable [phone] Prudence Mishra MD Unavailable [phone] Jarrell Pretty MD Unavailable [phone] Homa Richards MD Unavailable [phone] Alonso Denney MD Unavailable [phone] Encounter Details Date Type Department Care Team (Late st Contact Info) Description 07/29/2020 Transcribe Orders [facility] [address] [place] [address] Alonso Denney MD [address] [facility], [address] [place] [address] Social History Tobacco Use Types Packs/Day Years [...] Info) Description 03/13/2025 Procedure Pass [facility] [address] [place] [address] 06/22/2025 11:00 AM EDT Office Visit [address] [place] [address] Alonso Denney MD [address] [place] [address], [address] [place] [address] 08/11/2025 3:00 PM EST Nurse Only [address] [place] [address] Alonso Denney MD [address] [place] [address], [address] [place] [address] 08/17/2025 2:45 PM EST Appointment [facility] [address] [place] [address] Ese Grier DNP [address] [place] [address], [address] [place] [address] 09/21/2025 10:30 AM EST Office Visit [facility] [address] [place] [address] Dr 3rd Floor, [address] [place] [address] Star Goodman DO [address] [place] [address] [place] [address] 01/05/2026 9:10 AM EDT Office Visit [facility]umatology [address] [place] [address] [place] [address] Angle Rouse MD, MPH [address] [place] [address], [address] [place] [address] documented as of this encounter Visit Diagnoses Not on filedocumented in this encounter Additional Health Concerns Infection Onset Date Last Indicated Resolved Time COVID-19 11/29/2022 11/29/2022 12/20/2022 1:21 AM EDT CoV-Risk Comment:Per Ambulatory Triage Form 11/30/2022 11/30/202211/30 8:26 AM EDT Assessment Noted Time PHQ-2 Depression Total Score: 0 01/23/20 11:47 AM EDT documented as of this encounter Care Teams Steam Drier Tender Relationship Specialty Start Date End Date Alonso Denney MD [address] [place] [address], [address] [place] [address] PCP - General 07/02/17 Alonso Denney MD [address] [place] [address], [address] [place] [address] Historical LMR Provider 07/08/17 Fátima Cah MD [address] [place] [address], [facility] [address] [place] [address] [email or web address] Historical LMR Provider 07/08/17 09/24/21 Josephine Beltran NP [address] [place] [address] Historical LMR Provider 07/08/17 2 Prudence Mishra MD [address] [place] [address], 2nd [place] [address] Historical LMR Provider 07/08/17 Jarrell Pretty MD [address] [place] [address], 2nd [place] [address] Historical LMR Provider 07/08/17 09/24/21 Homa Richards MD [address] [place] [address] [facility], [place] [address] Historical LMR Provider 07/08/17 Alonso Denney MD [address] [place] [address], [address] [place] [address] [email or web address] Insurance Assigned Provider 01/18/19 documented as of this encounter Additional Source Comments The information contained in this document represents components of the legal health record. It is not the complete legal health record.[facility]
--- OUTSIDE RECORDS SUMMARY | 2025-06-04 12:11 | XMS_ITS | Encounter Summary ---
Author Organization [facility] Address [address] [place] [address] [place] [address] Phone Care Team Providers Care Nursery Nurse Name Role Phone Alonso Denney MD Unavailable [phone] Fátima Cha MD Unavailable [phone] Alonso Denney MD Primary Care Provider [phone] Josephine Beltran NP Unavailable [phone] Prudence Mishra MD Unavailable [phone] Jarrell Pretty MD Unavailable [phone] Homa Richards MD Unavailable [phone] Alonso Denney MD Unavailable [phone] Encounter Details Date Type Department Care Team (Latest Contact Info) Description 05/25/2020 Transcribe Orders [facility] [address] [place] [address] [id number] Paz Stone, FANCY STITCHER [address] [place] [address] Abdominal pain, epigastric (Primary Dx); Nonspecific abnormal results of liver function study Social History Tobacco Use Types Packs/Day Years [...] Info) Description 03/13/2025 Procedure Pass [facility] [address] [place] [address] 06/22/2025 11:00 AM EDT Office Visit [address] [place] [address] Alonso Denney MD [address] [place] [address], [address] [place] [address] 08/11/2025 3:00 PM EST Nurse Only [address] [place] [address] Alonso Denney MD [address] [place] [address], [address] [place] [address] 08/17/2025 2:45 PM EST Appointment [facility] [address] [place] [address] Ese Grier DNP [address] [place] [address], [address] [place] [address] 09/21/2025 10:30 AM EST Office Visit [facility] [address] [place] [address] Dr 3rd Floor, [address] [place] [address] Star Goodman DO [address] [place] [address] [place] [address] 01/05/2026 9:10 AM EDT Office Visit [facility] Rheumatology [address] [place] [address] [place] [address] Angle Rouse MD, MPH [address] [place] [address], [address] [place] [address] [place] [address] [email or web address] documented as of this encounter Results * Lipase (05/25/2020 4:05 PM EDT) Pathologist [facility] LIPASE 25 16 - 63 U/L [facility] Blood 05/25/2020 4:05 PM EDT 05/25/2020 4:11 PM EDT Paz Stone CNP LAB BLOOD ORDERABLES Final Result [facility] [address] [place] [address] * IgG subclasses (05/25/2020 3:53 PM EDT) Pathologist [facility] IGG 1 501 341 - 894 mg/dL [facility]PATH [address] DR IGG 2 350 171 - 632 mg/dl [facility]PATH [facility]PER[address] DR IGG 3 81.1 18.4 - 106.0 mg/dl [facility]PATH [address] DR IGG 4 101.0 2.4 - 121.0 mg/dl [facility]PATH SUPERIOR DR TOTAL IGG 1,040 767 - 1,590 mg/dl [facility] MED/[facility] [address] Blood 05/25/2020 3:53 PM EDT 05/25/2020 4:02 PM EDT Paz Stone CNP LAB BLOOD ORDERABLES Final Result [facility] LAB MED/PATH [address] [place] [address] * C-Reactive Protein (05/25/2020 3:53 PM EDT) Pathologist [facility] C REACTIVE PROTEIN <0.3 0.0 - 4.0 mg/L [facility] Blood 05/25/2020 3:53 PM EDT 05/25/2020 4:01 PM EDT Paz Stone [facility] LAB BLOOD ORDERABLES Final Result [address] [address] * Comprehensive metabolic panel (05/25/2020 3:53 PM EDT) SODIUM 139 133 - 146 mmol/L [facility] POTASSIUM 3.9 3.3 - 5.1 mmol/L [facility] CHLORIDE 101 96 - 108 mmol/L [facility] CO2 29 21 - 35 mmol/L [facility] BUN 11 6 - 19 mg/dL [facility] CREATININE 0.60 0.5 - 1.5 mg/dL [facility] GLUCOSE 99 70 - 99 mg/dL [facility] ALBUMIN 4.5 3.9 - 4.8 g/dL [facility] TOTAL PROTEIN 7.3 6.5 - 8.0 g/dL [facility] CALCIUM 9.8 8.4 - 10.3 mg/dL [facility] ALKALINE PHOSPHATASE 107 39 - 117 U/L [facility] TOTAL BILIRUBIN 0.5 0.0 - 1.2 mg/dL [facility] AST 19 0 - 37 U/L [facility] ALT 12 0 - 40 U/L [facility] GLOBULIN 2.8 1 - 4.8 g/dL [facility] EGFR 98 >59 mL/min/1.7 3m2 [facility] Comment:Estimated glomerular filtration rate calculated using the CKD-EPI equation. ANION GAP 13 10 - 20 mmol/L [facility] Blood 05/25/2020 3:53 PM EDT 05/25/2020 4:01 PM EDT Paz Stone [facility] LAB BLOOD ORDERABLES Final Result [address] [address] * CBC and differential (05/25/2020 3:53 PM EDT) WBC 4.70 4.00 - 11.00 K/uL [facility] Comment:Note Reference Range updates to all CBC and Differential results. RBC 4.32 3.72 - 5.30 M/uL [facility] HGB 14.0 11.4 - 15.9 g/dL [facility] Comment:Note updated Referen ce Ranges for all CBC and Differential results. HCT 40.1 34.2 - 46.8 % [facility] PLT 265 140 - 430 K/uL [facility] MCV 92.8 78.0 - 97.0 fL [facility] MCH 32.4 25.0 - 33.0 pg [facility] MCHC 34.9 32.0 - 36.0 g/dL [facility] RDW 12.1 11.0 - 16.0 % [facility] MPV 9.8 8.4 - 12.8 fl [facility] NRBC 0.00 0 /100 WBCs [facility] ABSOLUTE NRBC 0.00 0 K/uL [facility] DIFF METHOD Auto [facility] NEUTS 50.4 43.0 - 75.0 % [facility] LYMPHS 35.3 18.2 - 47.4 % [facility] MONOS 10.9 4.00 - 11.00 % [facility] EOS 1.9 0.0 - 8.0 % [facility] BASOS 1.3 0.0 - 2.0 % [facility] Granulocytes, immature (%) 0.2 0.0 - 0.9 % [facility] ABSOLUTE NEUTS 2.37 1.80 - 7.70 K/uL [facility] ABSOLUTE LYMPHS 1.66 1.00 - 3.10 K/uL [facility] ABSOLUTE MONOS 0.51 0.20 - 0.80 K/uL [facility] ABSOLUTE EOS 0.09 0.00 - 0.80 K/uL [facility] ABSOLUTE BASOS 0.06 0.00 - 0.09 K/uL [facility] Granulocytes, immature 0.01 0.00 - 0.05 K/uL [facility] Blood 05/25/2020 3:53 PM EDT 05/25/2020 4:01 PM EDT us Paz Stone [facility] LAB BLOOD ORDERABLES Final Result [address] [address] documented in this encounter Visit Diagnoses Diagnosis Abdominal pain, epigastric- Primary Nonspecific abnormal results of liver function study documented in this encounter Additional Health Concerns Infection Onset Date Last Indicated Resolved Time COVID-19 11/29/2022 11/29/2022 12/20/2022 1:21 AM EDT CoV-Risk Comment:Per Ambulatory Triage Form 11/30/2022 11/30/202211/30 8:26 AM EDT Assessment Noted Time PHQ-2 Depression Total Score: 0 01/23/20 11:47 AM EDT documented as of this encounter Care Teams Nursery Nurse Relationship Specialty Start Date End Date Alonso Denney MD [address] [place] [address] PCP - General 07/02/17 Alonso Denney MD [address] [place] [address] Historical LMR Provider 07/08/17 Fátima Cha MD [address] [place] [address], [address] [address] Historical LMR Provider 07/08/17 09/24/21 Josephine Beltran NP [address] [place] [address] [address] [place] [address] Historical LMR Provider 07/08/17 2 Prudence Mishra MD [address] [place] [address], 2nd [place] [address] Historical LMR Provider 07/08/17 Jarrell Pretty MD [address] [facility], 2nd [place] [address] Historical LMR Provider 07/08/17 09/24/21 Homa Richards MD [address] [place] [address] [facility], [place] [address] Historical LMR Provider 07/08/17 Alonso Denney MD [address] [place] [address], [address] [place] [address] [email or web address] Insurance Assigned Provider 01/18/19 documented as of this encounter Additional Source Comments The information contained in this document represents components of the legal health record. It is not the complete legal health record.[facility]
--- OUTSIDE RECORDS SUMMARY | 2025-06-04 12:11 | XMS_ITS | Encounter Summary ---
Author Organization [facility] Address [address] [place] [address] [place] [address] Phone Care Team Providers Care Tugboat Dispatcher Name Role Phone Alonso Denney MD Unavailable [phone] Fátima Cha MD Unavailable [phone] Alonso Denney MD Primary Care Provider [phone] Josephine Beltran NP Unavailable [phone] Prudence Mishra MD Unavailable [phone] Jarrell Pretty MD Unavailable [phone] Homa Richards MD Unavailable [phone] Alonso Denney MD Unavailable [phone] Encounter Details Date Type Department Care Team (Late st Contact Info) Description 07/16/2017 Ancillary Orders [facility] [address] [place] [address] Fátima Cha MD [address] [facility], [address] [place] [address] Visit for screening mammogram Social History Tobacco Use Types Packs/Day Years Used Date Smoking Tobacco: Never Assessed Comments Unknown Sex and Gender Information Value Date Recorded Sex Assigned at Female 03/08/2020 12:06 PM EDT Legal Sex Female 9:51 PM EDT Gender Identity Female 03/08/2020 12:06 PM EDT Sexual Orientation Straight 03/08/2020 12 :06 PM EDT documented as of this encounter Plan of Treatment Upcoming Encounters Date Type Department Care Team (Late st Contact Info) Description 03/13/2025 Procedure Pass [facility] [address] [place] [address] 06/22/2025 11:00 AM EDT Office Visit [address] [place] [address] Alonso Denney MD [address] [place] [address], [address] [place] [address] 08/11/2025 3:00 PM EST Nurse Only [address] [place] [address] Alonso Denney MD [address] [place] [address], [address] [place] [address] 08/17/2025 2:45 PM EST Appointment Echo Lab [address] [place] [address] Ese Grier DNP [address] [place] [address], [address] [address] 09/21/2025 10:30 AM EST Office Visit [facility] [address] [place] [address] Dr [address] Floor, [address] [place] [address] Star Goodman DO [address] [place] [address] [place] [address] 01/05/2026 9:10 AM EDT Office Visit [facility] Rheumatology [address] [place] [address] [place] [address] Angle Rouse MD, MPH [address] [place] [address], [address] [place] [address] [email or web address] documented as of this encounter Results * BI MAMMOGRAM SCREENING WITH TOMOSYNTHESIS WITH CAD (BILATERAL) (08/27/2017 2:59 PM EST) Anatomical Region Laterality Modality Breast Left, Breast Right, Breast Bilateral Bila teral Mammography 08/28/2017 8:27 AM EST Impressions 08/28/2017 8:29 AM EST Normal negative. Annual screening is recommended. Patient notified by letter. BI-RADS CATEGORY: 1 - Negative. DENSITY: There are scattered fibroglandular densities. POS: [id number] Narrative 08/28/2017 8:29 AM EST Screening Mammogram, bilateral with utilization of computer aided detection and tomosynthesis as well as 2-D C view imaging. Comparison: Dating back to 2013 and the most recent prior examination dated 2015. Findings: No suspicious masses or suspicious clustered microcalcifications are present. No architectural distortion or significant asymmetry is present. Breasts are composed of scattered fibroglandular elements. Procedure Note Desire Cee MD - 08/28/2017 Screening Mammogram, bilateral with utilization of computer aideddetection and tomosynthesis as well as 2-D C view imaging. Comparison: Dating back to 2013 and the most recent prior examinationdated 2015. Findings: No suspicious masses or suspicious clustered microcalcificationsare present. No architectural distortion or significant asymmetry ispresent. Breasts are composed of scattered fibroglandular elements. IMPRESSION: Normal negative. Annual screening is recommended. Patient notified by letter. BI-RADS CATEGORY: 1 - Negative. DENSITY: There are scattered fibroglandular densities. POS: [id number] Fátima Cha MD IMG MG EXAMS Final Resu lt documented in this encounter Visit Diagnoses Diagnosis Visit for screening mammogram Visit for screening mammogram documented in this encounter Additional Health Concerns Infection Onset Date Last Indicated Resolved Time COVID-19 11/29/2022 11/29/2022 12/20/2022 1:21 AM EDT CoV-Risk Comment:Per Ambulatory Triage Form 11/30/2022 11/30/202211/30 8:26 AM EDT documented as of this encounter Care Teams Tugboat Dispatcher Relationship Specialty Start Date End Date Alonso Denney MD [address] [place] [address], [address] [place] [address] PCP - General 07/02/17 Alonso eDnney MD [address] [place] [address], [address] [place] [address] Historical LMR Provider 07/08/17 Fátima Cha MD [address] [place] [address], [facility] [address] [place] [address] Historical LMR Provider 07/08/17 09/24/21 Josephine Beltran NP [address] [place] [address] Historical LMR Provider 07/08/17 2 Prudence Mishra MD [address] [facility], [address] [place] [address] Historical LMR Provider 07/08/17 Jarrell Pretty MD [address] [facility], [address] [place] [address] Historical LMR Provider 07/08/17 09/24/21 Homa Richards MD [address] [place] [address] [facility], [place] [address] [email or web address] Historical LMR Provider 07/08/17 Alonso Denney MD [address] [place] [address], [address] [place] [address] [email or web address] Insurance Assigned Provider 01/18/19 documented as of this encounter Additional Source Comments The information contained in this document represents components of the legal health record. It is not the complete legal health record.[facility]
--- OUTSIDE RECORDS SUMMARY | 2025-06-04 12:11 | XMS_ITS | Encounter Summary ---
Author Organization [facility] Address [address] [place] [address] Phone Care Team Providers Care Trimming Cutter Machine Name Role Phone Alonso Denney MD Unavailable [phone] Alonso Deneny MD Primary Care Provider + [phone] Homa Richards MD Unavailable [phone] Encounter Details Date Type Department Care Team (Late st Contact Info) Description 07/09/2024 Procedure Pass [facility], [address] [address] Social History Tobacco Use Types Packs/Day Years [...] high school, GED, job training, learning the Nepalese language, technical skills, or developing parenting skills)? [...] Info) Description 03/13/2025 Procedure Pass Echo Lab [address] [place] [address] 06/22/2025 11:00 AM EDT Office Visit [facility] [address] [place] [address] [place] [address] Alonso Dennye MD [address] [place] [address], [address] [place] [address] 08/11/2025 3:00 PM EST Nurse Only [facility] Medicine [address] [place] [address] [place] [address] Alonso Denney MD [address] [place] [address], [address] [place] [address] 08/17/2025 2:45 PM EST Appointment Echo Lab [address] [place] [address] Ese Grier DNP [address] [place] [address], [address] [place] [address] 09/21/2025 10:30 AM EST Office Visit [facility] [address] [place] [address] 3rd Floor, [address] [place] [address] Star Goodman DO [address] [place] [address] [place] [address] 01/05/2026 9:10 AM EDT Office Visit [facility] Rheumatology [address] [place] [address] [place] [address] Angle Rouse MD, MPH [address] [place] [address], [address] [place] [address] documented as of this encounter Visit Diagnoses Not on filedocumented in this encounter Additional Health Concerns Assessment Noted Time PHQ-2 Depression Total Score: 0 06/18/20 24 1:39 PM EDT documented as of this encounter Care Teams Trimming Cutter Machine Relationship Specialty Start Date End Date Alonso Denney MD [address] [place] [address], [address] [place] [address] PCP - General 07/02/17 Alonso Denney MD [address] [place] [address], [address] [place] [address] Historical LMR Provider 07/08/17 Homa Richards MD [address] [place] [address] [facility], [place] [address] [email or web address] Historical LMR Provider 07/08/17 documented as of this encounter Additional Source Comments The information contained in this document represents components of the legal health record. It is not the complete legal health record.[facility]
--- OUTSIDE RECORDS SUMMARY | 2025-06-04 12:11 | XMS_ITS | Encounter Summary ---
Author Organization [facility] Address [address] [facility] [address] [place] [address] Phone Care Team Providers Care Public Information Coordinator Name Role Phone Alonso Denney MD Unavailable [phone] Fátima Cha MD Unavailable [phone] Alonso Denney MD Primary Care Provider + [phone] Josephine Beltran NP Unavailable [phone] Prudence Mishra MD Unavailable [phone] Jarrell Pretty MD Unavailable [phone] Homa Richards MD Unavailable [phone] Alonso Denney MD Unavailable [phone] Reason for Referral * MRI/CAT Scan - Closed Specialty Diagnoses / Procedures Referred By Contac t Referred To Contact Radiology Diagnoses Abnormal LFTs Epigastric abdominal pain Procedures MRI Abdomen Paz Stone CNP Phone: tel: fax: mailto: [address] [address] Phone: tel: Referral ID Status Reason Start Date Expiration Date Visits Re quested Visits Authorized [id number] Closed 06/11/2020 07/11/2020 1 1 Encounter Details Date Type Department Care Team (Latest Contact Info) Description 06/04/2020 Transcribe Orders Virtual Department [address] [place] [address] Paz Stone, CHEESE [employer]ER [address] [place] [address] [email or web address] Abnormal LFTs (Primary Dx); Epigastric abdominal pain Social History Tobacco Use Types Packs/Day Years [...] Description 03/13/2025 Procedure Pass Echo Lab [address] [place] [address] 06/22/2025 11:00 AM EDT Office Visit [address] [place] [address] Alonso Denney MD [address] [place] [address], [address] [place] [address] 08/11/2025 3:00 PM EST Nurse Only [address] [place] [address] Alonso Denney MD [address] [place] [address], [address] [place] [address] 08/17/2025 2:45 PM EST Appointment Echo Lab [address] [place] [address] Ese Grier DNP [address] [place] [address], [address] [place] [address] 09/21/2025 10:30 AM EST Office Visit [facility] [address] Floor, [address] [place] [address] Star Goodman DO [address] [facility] [address] [place] [address] 01/05/2026 9:10 AM EDT Office Visit [facility] Rheumatology [address] [place] [address] Angle Rouse MD, MPH [address] [facility], [address] [place] [address] documented as of this encounter Results * MRI ABDOMEN WITH AND WITHOUT CONTRAST (06/11/2020 9:38 AM EDT) Anatomical Region Laterality Modality Abdomen Magnetic Resonan ce 06/12/2020 8:36 AM EDT Impressions 06/12/2020 8:50 AM EDT No correlate for abdominal pain. Prior cholecystectomy. No duct dilation or choledocholithiasis. Narrative 06/12/2020 8:50 AM EDT MRI ABDOMEN WITH AND WITHOUT CONTRAST TECHNIQUE: MR of the upper abdomen WITH AND WITHOUT intravenous Dotarem contrast. COMPARISON: MRI abdomen 09/05/2014 FINDINGS: LIVER: No global hepatic signal abnormality. No suspicious hepatic lesions. 4 mm cyst in segment 6. BILIARY: Cholecystectomy. No ductal dilatation or filling defect. PANCREAS: No mass or ductal dilatation. SPLEEN: No splenomegaly. ADRENALS: No nodules. KIDNEYS: No hydronephrosis or mass in the imaged portion of the kidneys. Right lower pole 9 mm cyst. PERITONEUM / RETROPERITONEUM: No upper abdominal free fluid. LYMPH NODES: No upper abdominal lymphadenopathy. VESSELS: Unremarkable. BONES AND SOFT TISSUES: Unremarkable. Procedure Note Khanh Rhoades MD - 06/12/2020 MRI ABDOMEN WITH AND WITHOUT CONTRAST TECHNIQUE: MR of the upper abdomen WITH AND WITHOUT intravenous Dotaremcontrast. COMPARISON: MRI abdomen 09/05/2014 FINDINGS: LIVER: No global hepatic signal abnormality. No suspicious hepaticlesions. 4 mm cyst in segment 6. BILIARY: Cholecystectomy. No ductal dilatation or filling defect. PANCREAS: No mass or ductal dilatation. SPLEEN: No splenomegaly. ADRENALS: No nodules. KIDNEYS: No hydronephrosis or mass in the imaged portion of the kidneys.Right lower pole 9 mm cyst. PERITONEUM / RETROPERITONEUM: No upper abdominal free fluid. LYMPH NODES: No upper abdominal lymphadenopathy. VESSELS: Unremarkable. BONES AND SOFT TISSUES: Unremarkable. IMPRESSION: No correlate for abdominal pain. Prior cholecystectomy. No duct dilation or choledocholithiasis. Paz Cohen Chase [employer]ER IMG MR ABDOMEN Final Resu lt documented in this encounter Visit Diagnoses Diagnosis Abnormal LFTs- Primary Epigastric abdominal pain Abdominal pain, epigastric Abnormal LFTs Epigastric abdominal pain Abdominal pain, epigastric documented in this encounter Additional Health Concerns Infection Onset Date Last Indicated Resolved Time COVID-19 11/29/2022 11/29/2022 12/20/2022 1:21 AM EDT CoV-Risk Comment:Per Ambulatory Triage Form 11/30/2022 11/30/202211/30 8:26 AM EDT Assessment Noted Time PHQ-2 Depression Total Score: 0 01/23/20 11:47 AM EDT documented as of this encounter Care Teams Public Information Coordinator Relationship Specialty Start Date End Date Alonso Denney MD [address] [place] [address], [address] [place] [address] [email or web address] PCP - General 07/02/17 Alonso Denney MD [address] [place] [address], [address] [place] [address] [email or web address] Historical LMR Provider 07/08/17 Fátima Cha MD [address] [place] [address], [address] [place] [address] Historical LMR Provider 07/08/17 09/24/21 Josephine Beltran NP [address] [place] [address] [address] [place] [address] Historical LMR Provider 07/08/17 2 Prudence Mishra MD [address] [place] [address] Historical LMR Provider 07/08/17 Jarrell Pretty MD [address] [place] [address] Historical LMR Provider 07/08/17 09/24/21 Homa Richards MD [address] [place] [address] [facility], [place] [address] Historical LMR Provider 07/08/17 Alonso Denney MD [address] [place] [address], [address] [place] [address] Insurance Assigned Provider 01/18/19 documented as of this encounter Additional Source Comments The information contained in this document represents components of the legal health record. It is not the complete legal health record.[facility]
--- OUTSIDE RECORDS SUMMARY | 2025-06-04 12:11 | XMS_ITS | Encounter Summary ---
Author Organization [facility] Address [address] [facility] [address] [place] [address] Phone Care Team Providers Care Foiling Machine Operator Name Role Phone Alonso Denney MD Unavailable [phone] Alonso Denney MD Primary Care Provider + [phone] Homa Richards MD Unavailable [phone] Alonso Denney MD Unavailable [phone] Encounter Details Date Type Department Care Team (Late st Contact Info) Description 02/10/2022 Transcribe Orders [facility] [address] [place] [address] Alonso Denney MD [address] [facility], [address] [place], [place] [id number] Social History Tobacco Use Types Packs/Day Years Used Date Smoking Tobacco: Never Smokeless Tobacco: Never Alcohol Use Standard Drinks/Week Comments Yes 6 (1 standard drink = 0.6 oz pur e alcohol) Child or Family Care Answer Date Record ed Do you have problems with on e of the following making it difficult for you to work, study, or receive health care? No 12/21/2021 Education Answer Date Recorded Are you interested in help w ith more adult education (for example, completing high school, GED, job training, learning the [place] language, technical skills, or developing parenting skills)? [...] Description 03/13/2025 Procedure Pass Echo Lab [address] [place] [address] 06/22/2025 11:00 AM EDT Office Visit [address] [place] [address] Alonso Denney MD [address] [place] [address], [address] [place] [address] 08/11/2025 3:00 PM EST Nurse Only [address] [place] [address] Alonso Denney MD [address] [place] [address], [address] [place] [address] 08/17/2025 2:45 PM EST Appointment Echo Lab [address] [place] [address] Ese Grier DNP [address] [place] [address], [address] [place] [address] 09/21/2025 10:30 AM EST Office Visit [facility] [address] Floor, [address] [place] [address] Star Goodman DO [address] [facility] [address] [place] [address] 01/05/2026 9:10 AM EDT Office Visit [facility] Rheumatology [address] [place] [address] Angle Rouse MD, MPH [address] [facility], [address] [place] [address] documented as of this encounter Visit Diagnoses Not on filedocumented in this encounter Additional Health Concerns Infection Onset Date Last Indicated Resolved Time COVID-19 11/29/2022 11/29/2022 12/20/2022 1:21 AM EDT CoV-Risk Comment:Per Ambulatory Triage Form 11/30/2022 11/30/202211/30 8:26 AM EDT Assessment Noted Time PHQ-2 Depression Total Score: 1 12/22/19 22 9:30 AM EDT documented as of this encounter Care Teams Foiling Machine Operator Relationship Specialty Start Date End Date Alonso Denney MD [address] [place] [address], [address] [place] [address] PCP - General 07/02/17 Alonso Denney MD [address] [place] [address], [address] [place] [address] Historical LMR Provider 07/08/17 Homa Richards MD [address] [place] [address] [facility], [place] [address] [email or web address] Historical LMR Provider 07/08/17 Alonso Denney MD [address] [place] [address], [address] [place] [address] [email or web address] Insurance Assigned Provider 01/18/19 documented as of this encounter Additional Source Comments The information contained in this document represents components of the legal health record. It is not the complete legal health record.[facility]
--- OUTSIDE RECORDS SUMMARY | 2025-06-04 12:11 | XMS_ITS | Encounter Summary ---
Author Organization [facility] Address [address] [place] [address] Phone Care Team Providers Care Mobile Nurse Name Role Phone Alonso Denney MD Unavailable [phone] Alonso Denney MD Primary Care Provider + [phone] Homa Richards MD Unavailable [phone] Alonso Denney MD Unavailable [phone] Encounter Details Date Type Department Care Team (Latest Contact Info) Description 12/12/[address] [facility] [address] [place] [address] Pedro Rivas MD [address] [place] [address], [address] [place], [place] [id number] [email or web address] Neuropathy (Primary Dx); Numbness Social [...] Info) Description 03/13/2025 Procedure Pass Echo [facility] [place] [address] [place] [address] [place] [address] 06/22/2025 11:00 AM EDT Office Visit [address] [place] [address] Alonso Denney MD [address] [place] [address], [address] [place] [address] 08/11/2025 3:00 PM EST Nurse Only [address] [place] [address] Alonso Denney MD [address] [place] [address], [address] [place] [address] 08/17/2025 2:45 PM EST Appointment Echo Lab [address] [place] [address] Ese Grier DNP [address] [place] [address], [address] [address] 09/21/2025 10:30 AM EST Office Visit [facility] [address] [place] [address] Dr 3rd Floor, [address] [place] [address] Star Goodman DO [address] [place] [address] 01/05/2026 9:10 AM EDT Office Visit [facility] Rheumatology [address] [place] [address] [place] [address] Angle Rouse MD, MPH [address] [place] [address], [address] [address] documented as of this encounter Results * MYELOPEROXIDASE ANTIBODIES, IGG (12/16/2021 10:11 AM EDT) MYELOPEROXIDASE AB <0.2 <0.4 (Negative) U [facility] Blood 12/16/2021 10:1 1 AM EDT 12/16/2021 10:36 AM EDT Pedro Rivas MD LAB BLOOD ORDERABLES Final R esult Performing Organization Address [facility] Co de Phone Number [facility] [address] [place] [address] * SS-A/SS-B antibodies (12/12/2021 9:56 AM EDT) SS-A/RO IGG <0.2 <1.0 (Negative) U [facility] SS-B/LA IGG <0.2 <1.0 (Negative) U [facility] Blood 12/12/2021 9:56 AM EDT 12/12/2021 10:13 AM EDT Pedro Rivas MD LAB BLOOD ORDERABLES Final R esult Performing Organization Address [facility] de Phone Number [facility] [address] [place] [address] * (ABNORMAL) Anti-Neutrophil Cytoplasmic Antibody (ANCA) (12/12/2021 9:56 AM EDT) C-ANCA Negative Negative [facility] P-ANCA Positive(A) Negative [facility] Comment: (NOTE) 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 Suggest further testing for anti-myeloperoxidase (anti-MPO) antibodies, if clinically indicated. ADDITIONAL INFORMATION This test was developed and its performance characteristics determined by [facility] in a manner consistent with CLIA requirements. This test has not been cleared or approved by the U.S. Food and Drug Administration. Blood 12/12/2021 9:56 AM EDT 12/12/2021 10:13 AM EDT Pedro Rivas MD LAB BLOOD ORDERABLES Final R esult Performing Organization Address City/[facility]/ZIP Co de Phone Number [facility] MED/[address] [place] [address] * ACETYLCHOLINE RECEPTOR BINDING ANTIBODY (12/12/2021 9:56 AM EDT) ACH RECEPTOR BIND AB 0.00 <=0.02 nmol/L [facility] DPT OF LAB MED AND PAT+ Comment: (NOTE) ADDITIONAL INFORMATION This test was developed and its performance characteristics determined by [facility] in a manner consistent with CLIA requirements. This test has not been cleared or approved by the U.S. Food and Drug Administration. Blood 12/12/2021 9:56 AM EDT 12/12/2021 10:13 AM EDT Pedro Rivas MD LAB BLOOD ORDERABLES Final R [facility] Performing Organization Address [facility] Co de Phone Number [facility] DPT OF LAB MED AND PAT+ [address] [place] [address] * (ABNORMAL) CPK (creatine kinase) (12/12/2021 9:56 AM EDT) Pathologist [facility] CREATINE KINASE 231(H) 21 - 215 U/L [facility] Blood 12/12/2021 9:56 AM EDT 12/12/2021 10:13 AM EDT Pedro Rivas MD LAB BLOOD ORDERABLES Final R esult Performing Organization Address City/[facility]/ZIP Co de Phone Number [facility] [address] [place] [address] documented in this encounter Visit Diagnoses Diagnosis Neuropathy- Primary Mononeuritis of unspecified site Numbness Disturbance of skin sensation documented in this encounter Additional Health Concerns Infection Onset Date Last Indicated Resolved Time COVID-19 11/29/2022 11/29/2022 12/20/2022 1:21 AM EDT CoV-Risk Comment:Per Ambulatory Triage Form 11/30/2022 11/30/202211/30 8:26 AM EDT Assessment Noted Time PHQ-2 Depression Total Score: 0 12/21/19 9:27 AM EDT documented as of this encounter Care Teams Mobile Nurse Relationship Specialty Start Date End Date Alonso Denney MD [address] [place] [address], [address] [place] [address] PCP - General 07/02/17 Alonso Denney MD [address] [place] [address], [address] [address] Historical LMR Provider 07/08/17 Homa Richards MD [address] [place] [address] Orthopedics & Sports Medicine, [place] [address] Historical LMR Provider 07/08/17 Alonso Denney MD [address] [place] [address], [address] [place] [address] Insurance Assigned Provider 01/18/19 documented as of this encounter Additional Source Comments The information contained in this document represents components of the legal health record. It is not the complete legal health record.[facility]
--- OUTSIDE RECORDS SUMMARY | 2025-06-04 12:11 | XMS_ITS | Encounter Summary ---
Author Organization [facility] Address [address] [facility] [address] [place] [address] Phone Care Team Providers Care [place] Name Role Phone Alonso Denney MD Unavailable [phone] Alonso Denney MD Primary Care Provider + [phone] Homa Richards MD Unavailable [phone] Encounter Details Date Type Department Care Team (Latest Contact Info) Description 08/02/[address] [facility] Laboratory [address] [facility] [address] [place] [address] Paz Stone CNP [address] [place] [address] [email or web address] Constipation, unspecified constipation type (Primary Dx); External hemorrhoids Social History Tobacco Use Types Packs/Day Years [...] high school, GED, job training, learning the [place] language, technical skills, or developing parenting skills)? [...] Info) Description 03/13/2025 Procedure Pass Echo Lab [address] [place] [address] 06/22/2025 11:00 AM EDT Office Visit [address] [place] [address] Alonso Denney MD [address] [facility], [address] [place] [address] 08/11/2025 3:00 PM EST Nurse Only [address] [place] [address] Alonso Denney MD [address] [facility], [address] [place] [address] 08/17/2025 2:45 PM EST Appointment Echo Lab [address] [place] [address] Ese Grier DNP [address] [facility], [address] [place] [address] 09/21/2025 10:30 AM EST Office Visit [facility] [address] [place] [address] 3rd Floor, [address] [place] [address] Star [place] DO [address] [facility] [address] [place] [address] 01/05/2026 9:10 AM EDT Office Visit [facility] Rheumatology [address] [place] [address] [place] [address] Angle Rouse MD, MPH [address] [facility], [address] [place] [address] [email or web address] documented as of this encounter Results * Comprehensive metabolic panel (08/02/2023 2:53 PM EST) SODIUM 137 133 - 146 mmol/L [facility] POTASSIUM 3.8 3.3 - 5.1 mmol/L [facility] CHLORIDE 101 96 - 108 mmol/L [facility] CO2 27 21 - 35 mmol/L [facility] BUN 13 6 - 19 mg/dL [facility] CREATININE 0.70 0.5 - 1.5 mg/dL [facility] GLUCOSE 94 70 - 99 mg/dL [facility] ALBUMIN 4.4 3.9 - 4.8 g/dL [facility] TOTAL PROTEIN 7.3 6.5 - 8.0 g/dL [facility] CALCIUM 9.7 8.4 - 10.3 mg/dL [facility] ALKALINE PHOSPHATASE 107 39 - 117 U/L [facility] TOTAL BILIRUBIN 0.3 0.0 - 1.2 mg/dL [facility] AST 29 0 - 37 U/L [facility] ALT 12 0 - 40 U/L [facility] GLOBULIN 2.9 1 - 4.8 g/dL [facility] EGFR 96 >59 mL/min/1.7 3m2 [facility] Comment:Estimated glomerular filtration rate calculated using the CKD-EPI refit equation. ANION GAP 13 10 - 20 mmol/L [facility] Blood 08/02/2023 2:53 PM EST 08/02/2023 2:56 PM EST us Paz Stone [facility] LAB BLOOD ORDERABLES Final Result [facility] [address] [place] [address] * (ABNORMAL) CBC and differential (08/02/2023 2:53 PM EST) WBC 4.68 4.00 - 11.00 K/uL [facility] RBC 4.16 3.72 - 5.30 M/uL [facility] HGB 13.8 11.4 - 15.9 g/dL [facility] HCT 40.4 34.2 - 46.8 % [facility] PLT 337 140 - 430 K/uL [facility] MCV 97.1(H) 78.0 - 97.0 fL [facility] MCH 33.2(H) 25.0 - 33.0 pg [facility] MCHC 34.2 32.0 - 36.0 g/dL [facility] RDW 13.0 11.0 - 16.0 % [facility] MPV 9.7 8.4 - 12.8 fl [facility] DIFF METHOD Auto [facility] NEUTS 56.9 43.0 - 75.0 % [facility] LYMPHS 25.0 18.2 - 47.4 % [facility] MONOS 12.6(H) 4.00 - 11.00 % [facility] EOS 3.8 0.0 - 8.0 % [facility] BASOS 1.5 0.0 - 2.0 % [facility] Granulocytes, immature (%) 0.2 0.0 - 0.9 % [facility] ABSOLUTE NEUTS 2.66 1.80 - 7.70 K/uL [facility] ABSOLUTE LYMPHS 1.17 1.00 - 3.10 K/uL [facility] ABSOLUTE MONOS 0.59 0.20 - 0.80 K/uL [facility] ABSOLUTE EOS 0.18 0.00 - 0.80 K/uL [facility] ABSOLUTE BASOS 0.07 0.00 - 0.09 K/uL [facility] Granulocytes, immature 0.01 0.00 - 0.05 K/uL [facility] Blood 08/02/2023 2:53 PM EST 08/02/2023 2:56 PM EST us Pazyanet Cohen Chase [facility] LAB BLOOD ORDERABLES Final Result Performing Organization Address City/State/[facility] Co de Phone Number [facility] [address] [place] [address] documented in this encounter Visit Diagnoses Diagnosis Constipation, unspecified constipation type- Primary External hemorrhoids External hemorrhoids without mention of complication documented in this encounter Additional Health Concerns Assessment Noted Time PHQ-2 Depression Total Score: 0 12/23/19 23 9:02 AM EDT documented as of this encounter Care Teams [place] Relationship Specialty Start Date End Date Alonso Denney MD [address] [place] [address], [address] [place] [address] [email or web address] PCP - General 07/02/17 Alonso Denney MD [address] [place] [address], [address] [place] [address] [email or web address] Historical LMR Provider 07/08/17 Homa Richards MD [address] [place] [address] Orthopedics & Sports Medicine, [facility] [place] [address] [email or web address] Historical LMR Provider 07/08/17 documented as of this encounter Additional Source Comments The information contained in this document represents components of the legal health record. It is not the complete legal health record.[facility]
--- OUTSIDE RECORDS SUMMARY | 2025-06-04 12:12 | XMS_ITS | Clinical Summary ---
Author Organization [facility] Address [address] [address] Phone Care Team Providers Care Referral Specialist Name Role Phone Alonso Denney MD Unavailable [phone] Alonso Dennye MD Primary Care Provider [phone]- [phone] Homa Richards MD Unavailable [phone] Allergies Active Allergy Reactions Criticality Noted Date Comments Ampicillin Rash Low 09/18/2017 Iodinated Contrast Media Hives 09/18/2017 Gabapentin Other (See Comments) 09/18/2017 confusion Penicillins Rash Low 09/18/2017 Medications cyclosporine (RESTASIS) 0.05 % suspension Place 1 drop into each eye 2 (two) times a day. Active ibuprofen (ADVIL,MOTRIN) 600 MG tablet Take 600 mg by mouth every 6 (six) hours as needed for pain (specific location in comments). Active acetaminophen (TYLENOL) 500 MG tablet Take 500 mg by mouth every 6 (six) hours as needed for pain (specific location in comments). Active cholecalciferol (VITAMIN D3) 2,000 unit capsule Take 3,000 Units by mouth daily. Active calcium carbonate (CALCIUM 500 ORAL) Take 500 mg by mouth daily. Active b complex vitamins capsule Take 1 capsule by mouth daily. Active desonide (DESOWEN) 0.05 % cream 05/14/2023 Active famotidine (PEPCID) 20 MG tablet Take 20 mg by mouth as needed for heartburn. Active LORazepam (ATIVAN) 0.5 MG tabletIndicatio ns:Generalized anxiety disorder TAKE 1 TABLET (0.5 MG TOTAL) BY MOUTH 2 (TWO) TIMES A DAY NEEDED FOR ANXIETY. 6 tablet 11/26/2024 Active Hospital, Clinic, or Other Facility Administered Medication Ordered Dose Route Frequency Start Date End Date Status cyanocobalamin (VITAMIN B-12) 1,000 mcg/mL injection 1,000 mcgIndications:B12 deficiency 1000 mcg IM Every 2 Months 01/04/2021 Active Active Problems Problem Noted Date Diagnosed Date Adenomatous polyp of transverse colon 10/22/2024 Pulmonary nodules 07/08/2024 Aneurysm of ascending aorta without rupture 06/18 Assessment & Plan (03/13/2025 9:21 AM EDT): Echo shows the aortic root is stable. No significant changes since her last echo. Patient is feeling well and continues to remain active. I recommended that that she restrict how much she lifts. She states she does not lift more than 30 pounds. This is okay for activity. I also recommended that she keep her heart rate low under 160 bpm. Patient is okay to continue exercising. I will have her return in 6 months with an echo prior to her visit. Patient will continue to monitor her blood pressure and notify us if there is a significant increase. Plan: Echo in 6 months Follow-up in 6 months Elevated alkaline phosphatase level 07/08/2024 Lumbar radiculopathy, chronic 03/14/2024 Bilateral foot pain 01/02/2024 Assessment & Plan (01/03/2024 3:18 AM EDT): Presentation c/b significant pedal neuropathy though there is co-morbid mild OA, meagan involving the right 1st MTP. Trial topical diclofenac; patient to call for baseline plain films if sxs progress. Dilated aortic root 11/19/2023 Assessment & Plan (09/12/2024 2:54 PM EST): She has a known dilated aortic root at 43 mm on echocardiogram and 4. [address] chest that was performed in June. We will repeat an echocardiogram in 6 months. Cervicalgia 04/04/2023 Syncope, vasovagal 02/21/2023 Assessment & Plan (09/12/2024 2:55 PM EST): She has not had a syncopal episode in a while she does hydrate and has increased her sodium intake. She had reassuringly normal stress test as well as an echocardiogram. Assessment & Plan (12/18/2023 1:48 PM EDT): Symptoms much better controlled with hydration/increase salt intake. Stress test/echocardiogram unremarkable. Blood pressure little elevated 148/86 in office today, however given history of orthostasis/syncope we will just monitor this for the time being. We have discussed continuing to maintain good hydration as well as to continue with liberalized dietary sodium intake as previously advised by Dr. Hansen. Discussed again that she could also try using compression stockings as well which may provide further benefit. Patient has requested to follow-up with us on an as-needed basis which I think is reasonable. Leucopenia 02/21/2023 Primary osteoarthritis of both hands 12/29/2022 Assessment & Plan (12/29/2022 10:05 AM EDT): Current sxs mild and localized to DIPs and 1st CMCs. Discussed OTC analgesics. Reviewed sxs of foot OA vs sxs of established dx of peripheral neuropathy. No historical physical or radiographic evidence s/o underlying or co-morbid inflammatory arthritis and no current indication for ongoing rheumatology-specific mgmt though happy to re-evaluate if there is a clinically significant change. Persistent cough 10/11/2022 Assessment & Plan (03/03/2024 9:58 AM EDT): Reassured that lungs are clear today, O2 saturation is reassuring. Oropharynx without evidence of thrush, strep. There is mild prominence of the posterior papillae on the tongue. We discussed administration of Flonase. Increase to BID dosing. Continue daily Rachana. If symptoms do not improve, trial cetrizine to see if it does worsen fatigue. We discussed PFTs as a next step. She has a follow up visit with her PCP next week and will discuss again at that time. Assessment & Plan (10/11/2022 8:42 PM EST): Patient with 4-month, chronic cough. Omeprazole unhelpful. Given length of symptoms will get chest x-ray today. Patient does report postnasal drip and signs of cobblestoning on exam today ambulatory service representative of this. Given description of cough by patient question if it could be result of postnasal drip. Patient taking Rachana, advised she initiate use of fluticasone daily. If chest x-ray normal will have patient continue trying to treat postnasal drip and advise she reach out within 1 month to let us know how symptoms are. Otherwise defer management until results of chest x-ray are known. Patient verbalized understanding agreeable to plan. Elevated blood pressure read ing without diagnosis of hypertension 10/11/2022 Assessment & Plan (09/12/2024 2:54 PM EST): Blood pressure is 136/70. SBP goal less than 130/80 and would like it to be closer to 120 systolic. She is not on any antihypertensive medications. She does exercise regularly. She is encouraged to follow a heart healthy diet including low- sodium. Assessment & Plan (10/11/2022 8:44 PM EST): Patient with elevated blood pressure reading in office today. Has been elevated in the past. Advised patient to take a few blood pressure readings at home and write in through the patient portal with results of these. Patient verbalized understanding and agreeable to plan. Peripheral polyneuropathy 03/21/2022 Overview (01/02/2024): Idiopathic; seen by Dr. Rivas but no longer follows with him Did not tolerate remote gabapentin trial for an unrelated dx Assessment & Plan (01/03/2024 3:18 AM EDT): Discussed potential benefit of duloxetine, which is not absolutely contraindicated with current low dose sertraline, but would need to be monitored closely. Patient prefers to avoid addition of duloxetine at this time; may have some symptomatic benefit with topical diclofenac as below. Vitamin D deficiency, unspecified 02/10/2022 Assessment & Plan (05/11/2022 11:42 AM EDT): Finished second course Vit D Will repeat Vit D level today Continue 3000 IU day Assessment & Plan (02/10/2022 10:26 AM EDT): Vit D def Supplemented Check Vit D today Continue OTC Vit D 3 2000 IU /day Osteopenia 02/10/2022 Overview (01/05/2025): DEXA 01/2022 itzel T-score -2.0 total right hip DEXA 09/2024 itzel T-score -2.2 left total hip FRAX hip 4% any 30.1%; no h/o bisphosphonate use Assessment & Plan (01/05/2025 9:13 AM EDT): Osteopenia with high FRAX scores. We reviewed DEXA from September 2024 in detail today. I recommend alendronate based on FRAX estimates, though reassuringly bone density is stable compared to 2021. We discussed common and uncommon side effects of alendronate, including osteonecrosis of the jaw. I provided handouts regarding osteoporosis and bisphosphonates and discussed nonpharmacologic measures to optimize bone health. She will contact me after she sees her dentist in February to update me on whether or not she needs dental surgery. If she does require dental extraction, we will wait on starting alendronate until she has completely healed. Assessment & Plan (01/02/2024 10:14 AM EDT): Updated DEXA ordered; most recent D adequate and will order updated level to be drawn with next routine labs. Assessment & Plan (12/29/2022 10:03 AM EDT): No recent falls; compliant with vit D supplementation and working on improving balance. Updated D with next routine labs; next DEXA due 01/2024. Dedicated discussion of anti-resoprtive therapy deferred today. Assessment & Plan (02/10/2022 10:27 AM EDT): 61 postmenopausal female Hx Vit D def Recent DEXA osteopenia Continue Ca and Vit D Repeat DEXA 2023 Continue WB exercise Trochanteric bursitis of right hip 12/21/2021 Primary osteoarthritis of right hip 12/20/2020 Assessment & Plan (05/11/2022 11:41 AM EDT): XR consistent with OA R hip. Recommend cross training, pool therapy BP stable CBC CMP normal 02/05 NSAID risks: serious adverse cardiovascular thrombotic events, including fatal TN and stroke, serious gastrointestinal inflammation, ulceration, bleeding, and perforation as well as liver and kidney toxicity. We discussed the importance of using the lowest effective dose for the shortest interval necessary, and will continue to work to lower this dose. Pt understands that lab monitoring is required 2 x year on NSAID to include CBC ,Liver Functions, and creatinine Will d/c Mobic- to avoid taking too much NSAID, pt advised to continue with one. Will continue Ibuprofen Assessment & Plan (02/10/2022 10:24 AM EDT): XR consistent with OA R hip. Increased symptoms Encouraged cross training, pool therapy Trial Mobic 15 mg day BP stable CBC normal CMP today NSAID risks: serious adverse cardiovascular thrombotic events, including fatal TN and stroke, serious gastrointestinal inflammation, ulceration, bleeding, and perforation as well as liver and kidney toxicity. We discussed the importance of using the lowest effective dose for the shortest interval necessary, and will continue to work to lower this dose. Pt understands that lab monitoring is required 2 x year on NSAID to include CBC ,Liver Functions, and creatinine Assessment & Plan (10/25/2021 9:17 PM EST): XR consistent with OA R hip. Denies any significant symptoms Encouraged cross training, pool therapy For increased Pain IA injection prn Vitamin B12 deficiency 12/20/2020 Vaginal atrophy 07/19/2018 Overview (07/19/2018): Asymptomatic currently as not sexually active Assessment & Plan (07/19/2018 1:51 PM EDT): Asymptomatic currently as not sexually active Tear of right acetabular labrum 09/18/2017 Overview (01/03/2024): MRI 10/2023 Assessment & Plan (01/03/2024 3:21 AM EDT): Significant symptomatic benefit since intra-articular steroid injection under fluoroscopy 11/2023 (Dr. Bright); CATHY previously recommended but deferred. Abdominal pain, epigastric 09/18/2017 Gastroesophageal reflux disease without esophagi tis Resolved Problems Problem Noted Date Diagnosed Date Resolved Date Pain in both hands 10/25/2021 Overview (10/25/2021): Hx of bilateral hand [pain Previous XR right hand from 2019 consistent with OA Check labs today to eval for concurrent inflammatory arthritis Declines XR She declines OT referral today for strengthening, joint protection, assistive device but will think about it Suggested Paraffin bath Trila Voltaren gel For increased symptoms, consider prescription NSAID Encounters Date Type Department Care Team Description 06/02/2025 10:00 AM EDT Nurse Only [address] [place] [address] Alonso Denney MD Vitamin B 12 deficiency (Primary Dx) 05/15/[address] [place] [address] Alonso Denney MD Appointment (Post op FUV) 05/15/2025 Orders Only [facility] [address] [place] [address] Provider, MD Eric 2025 9:17 AM EDT - 2025 11:59 PM EDT Hospital Encounter [facility] [address] [place] [address] Alonso Denney MD Discharge Disposition: Home or Self Care 03/31/2025 1:30 PM EDT Nurse Only [address] [place] [address] Alonso Denney MD Vitamin B 12 deficiency (Primary Dx) 03/13/2025 9:00 AM EDT Office Visit [facility] [address] [place] [address] Dr [address], [address] [place] [address] Marli Tong, Ese Oates DNP Aneurysm of ascending aorta without rupture (Primary Dx) 03/04/2025 7:02 AM EDT - 03/04/2025 11:59 PM EDT Hospital Encounter [facility] [address] [place] [address] Marli Tong DNP Discharge Disposition: Home or Self Care 09/12/2024 Procedure Pass Echo Lab [address] [place] [address] from Last 3 Months Immunizations Immunization Administration Dates Next Due COVID-19 (Pre-07/09) Pfizer Vaccine, mRNA, PF 12/14/2020,11/23/2020 COVID-19 (Pre-07/09) Pfizer Vaccine, mRNA, tim-sucrose, PF 01/10/2022 COVID-19 Pfizer Comirnaty Vaccine 12+ 06/13/2023 INFLUENZA, SPLIT VIRUS, TRIVALENT PF 07/04/2016 Influenza High-Dose Quadriva lent Preservative Free IM 06/13/2023 Influenza High-Dose Trivalen t Preservative Free IM 06/17/2024 Influenza Quadrivalent Prese rvative Free IM 06/22/2022,07/05/2021,07/13/2020,2018,09/18/2017 Influenza Quadrivalent w/ Preservative IM 08/07/2019 Pneumococcal conjugate PCV20 07/02/2024 Td (adult),2 Lf Tetanus Toxo id, PF, Adsorbed 12/21/2021 Tdap 03/27/2011 Zoster recombinant 04/28/2022,02/10/2022 Family History Medical History Relation Comments Cancer Father Cancer Maternal Grandfather Breast cancer Mother Cancer Mother CV disease Paternal Grandfather CV disease Sibling 1 Diabetes mellitus Sibling 1 Relation Status Comments Father Maternal Grandfather Mother 60 Paternal Grandfather Sibling 1 Sibling 2 Social History Tobacco Use Types Packs/Day Years [...] Orientation Straight 03/08/2020 12 :06 PM EDT Last Filed Vital Signs Vital Sign Reading Time Taken Comments Blood Pressure 140/90 03/13/2025 8:48 AM EDT Pulse 95 03/13/2025 8:48 AM EDT Temperature 36.1 C (97 F) 12/31/2024 9:51 AM EDT Respiratory Rate 16 10/21/2024 11:06 AM EST Oxygen Saturation 99% 03/13/2025 8:48 AM EDT Inhaled Oxygen Concentration - - Weight 71.7 kg (158 lb) 03/13/2025 8:48 AM EDT Height 172.7 cm (5' 7.99 ) 03/13/2025 8:48 AM ED T Body Mass Index 24.03 03/13/2025 8:48 AM EDT Plan of Treatment Upcoming Encounters Date Type Department Care Team (Late st Contact Info) Description 03/13/2025 Procedure Pass [facility] [address] [place] [address] 06/22/2025 11:00 AM EDT Office Visit [address] [place] [address] Alonso Denney MD [address] [place] [address], [address] [place] [address] 08/11/2025 3:00 PM EST Nurse Only [address] [place] [address] Alonso Denney MD [address] [place] [address], [address] [place] [address] 08/17/2025 2:45 PM EST Appointment Echo Lab [address] [place] [address] Ese Grier DNP [address] [place] [address], [address] [place] [address] 09/21/2025 10:30 AM EST Office Visit [facility] [address] [place] [address] [address] Floor, [address] [place] [address] Star Goodman DO [address] [address] [email or web address] 01/05/2026 9:10 AM EDT Office Visit [facility] [address] [place] [address] Kirt Soni MD, MPH [address] [facility], [address] [place] [address] [email or web address] Health Maintenance Due Date Last Done Comments COLOGUARD 2003 FIT TEST 2003 FOBT 2003 SIGMOIDOSCOPY 2003 VIRTUAL COLONOSCOPY 2003 INFLUENZA VACCINE (#1) 2025 , 06/13/2023, 06/22/2022, Additional history exists COVID-19 VACCINE ( season) 2025 06/17/2024, 06/13/2023, 06/26/2022, Additional history exists DEPRESSION SCREENING 06/18/2025 06/18/2024 LIPID PANEL 01/01/2026 01/01/2025, 0402/2022, 12/21/2021, Additional history exists MAMMOGRAM 12/09/2026 12/09/2024, 09/17, 10/02/2022, Additional history exists PAP SMEAR 06/22/2027 06/22/2022, 06/21/2017 COLONOSCOPY 10/21/2029 10/21/2024, 10/30/2019 COLORECTAL CANCER SCREENING 10/21/2029 Adult Td,Tdap Booster 12/22/2031 12/21/2021, 011 RSV VACCINE (1 - 1-dose 75+ series) 2033 HEPATITIS C SCREENING Completed 01/26/2020, 020 ZOSTER VACCINES Completed 04/28/2022, 02/10/2022 PNEUMOCOCCAL VACCINES (50+ years) Completed 07/02/2024 OSTEOPOROSIS SCREENING INITIAL (ONE-TIME) Completed 09/30/2024, 02/07/2022 SMOKING STATUS SCREENING (Once After 26 Yrs) Completed 03/13/2025 HEPATITIS A VACCINES Aged Out No long er eligible based on patient's age to complete this topic HIB VACCINES Aged Out No longer eligi ble based on patient's age to complete this topic MENINGOCOCCAL VACCINES (ACWY) Aged Out No longer eligible based on patient's age to complete this topic MENINGOCOCCAL VACCINES (B) Aged Out N o longer eligible based on patient's age to complete this topic Medical Devices Not on file Procedures Procedure Name Priority Date/Time Associated Diagnosis Comments OUTSIDE IMAGING Routine 05/14/2025 9:42 AM EDT LFTS (HEPATIC PANEL) Routine 2025 9:17 AM EDT Elevated alkaline phosphatase level TTE COMPREHENSIVE Routine 03/04/2025 8:1 2 AM EDT Abdominal aortic aneurysm (AAA) without rupture, unspecified part LIPID PANEL Routine 01/01/2025 8:02 AM EDT Other hyperlipidemia BI MAMMOGRAM SCREENING WITH TOMOSYNTHESIS WITH CAD (BILATERAL) Routine 12/09/2024 7:52 AM EDT Breast screening ENDOSCOPY, COLON 10/21/2024 10:2 8 AM EST BD DXA AXIAL (SPINE) WITH HIP Routine 09/30/2024 2:38 PM EST Osteopenia, unspecified location PAP TEST Routine 06/22/2022 12:00 AM EDT HEPATITIS C ANTIBODY, QUALITATIVE Routine 01/26/2020 10:32 AM EDT Encounter for routine laboratory testing from Last 3 Months or Most Recently Relevant to Health Maintenance Results * Outside Imaging Report Only (05/14/2025 9:42 AM EDT) us Historical Provider MD VELÁZQUEZ XR CHEST Edited Re sult - Final * (ABNORMAL) LFTs (hepatic panel) (2025 9:17 AM EDT) ALKALINE PHOSPHATASE 119(H) 39 - 117 U/L [facility] TOTAL BILIRUBIN 0.4 0.0 - 1.2 mg/dL [facility] DIRECT BILIRUBIN 0.1 0.0 - 0.2 mg/dL [facility] Bilirubin (Indirect) NOT CALCULATED 0 - 1.5 mg/dL [facility] AST 17 0 - 37 U/L [facility] ALT 11 0 - 40 U/L [facility] TOTAL PROTEIN 7.3 6.5 - 8.0 g/dL [facility] ALBUMIN 4.4 3.9 - 4.8 g/dL [facility] GLOBULIN 2.9 1 - 4.8 g/dL [facility] A/G Ratio 1.52 1.00 - 4.80 RATIO [facility] Blood 2025 9:17 AM EDT 2025 9:19 AM EDT us Alonso Denney MD LAB BLOOD ORDERABLES Final Result [facility] [address] [place], [place] [id number] * TTE COMPREHENSIVE (03/04/2025 8:12 AM EDT) Height 173 cm Weight 71 kg Systolic BP 148 mmHg Diastolic BP 94 mmHg Interventricular Septum Thickness 8 6 - 11 mm Left Ventricle Internal Diameter End Diastole 41 37 - 52 mm Left Ventricle Internal Diameter End Systole 22 <35 mm Left Ventricular Outflow Tract Diameter 22.0 mm Left Ventricular Posterior Wall Thickness 8 6 - 11 mm Left Ventricle Ea Lateral Wave Speed 10.1 cm/s Left Ventricle Ea Septal Wave Speed 4.9 cm/s Ejection Fraction 86 50 - 75 Percent Left Atrium Dimension Anterior-Posterior 31 15 - 40 mm Aortic Valve Mean Gradient 4 mmHg Aortic Valve Time Velocity Integral 265.0 mm Aortic Valve Peak Velocity 1.4 m/s Aortic Valve Peak Gradient 7 mmHg Aortic Arch Diameter 29 mm Aortic Sinus Diameter 37 <40 mm Ascending Aorta Diameter 40 <36 mm Inferior Vena Cava Diameter 16 <21 mm Mitral Valve Deceleration Time 201 ms Left Ventricle A Wave Speed 52.7 cm/s Left Ventricle E Wave Speed 54.0 cm/s Mitral Valve Mean Gradient 1 mmHg Mitral Valve Peak Gradient 2 mmHg Mitral Valve Area Continuity Equation 4.20 cm2 Pulmonary Valve Peak Velocity 0.8 m/s Pulmonary Valve Peak Gradient 3 mmHg Right Ventricle Basal Diameter 43 25 - 41 mm Tricuspid Valve Peak Velocity 2.9 m/s Raw LV EF% 71 % MV E/E' Tissue Velocity Lateral 5.35 Relative Wall Thickness 0.39 0.22 - 0.42 MV E/A ratio 1.0 MV E/e' septal 11.02 Left Ventricle E/e' Average 8.2 Aortic Valve Prosthetic Peak Gradient 7 mmHg Aortic Valve Prosthetic Mean Gradient 4 mmHg Aorta Sinus Index by Height 2.14 cm/m Aorta Sinus CSA index by Height 6.21 cm2/m Asc Aorta CSA Index by Height 7.26 cm2/m Mitral Valve Prosthetic Peak Gradient 2 mmHg Mitral Valve Prosthetic Mean Gradient 1 mmHg Right Ventricle to Right Atrium Pressure Gradient 34 mmHg Right Ventricle Peak Systolic Pressure (Assuming RAP 10) 44 mmHg MGB CV ECHO TV RVSP (ASSUMING RAP OF 5) 39 mmHg RVSP (Exclusive of RAP) 34 mmHg Pulmonic Valve Prosthetic Peak Gradient 3 mmHg Echo E/Ea 11.02 Body Surface Area 1.84 m2 Left Atrial Volume Index 20 16 - 34 mL/m2 Right Ventricle Peak Systolic Pressure 37 mmHg Left Ventricle indexed to BSA 52.9 g/m2 Left Atrial Volume 36 mL Left Atrial Volume Index by Height 21 mL/m Right Atrium Area 15 cm2 Right Atrium Area index 8 cm2/m2 Aortic Valve Sinus Index by BSA 20 mm/m2 Ascending Aorta Index 22 mm/m2 Right Atrium Pressure Estimated 3 mmHg Ascending Aorta Index 22 mm Aortic Sinus Index 20 mm Ascending Aorta Diameter 22 mm Aortic Valve Sinus Index 1 20 19 - 27 mm AO ASC DIAM BSA INDEX 21.74 Anatomical Region Laterality Modality Heart Ultrasound Narrative 03/04/2025 8:26 AM EDT Images from the original result were not included. 1. The indication for the study is aortic root dimension. The estimated ejection fraction is normal at 65 to 70%. By Aquino's it is 67%. Diastolic function is normal left ventricular thickness is normal and regional wall motion is all normal. 2. Upper limits of normal RV size with normal RV function. 3. Trileaflet aortic valve there is no evidence of aortic stenosis with a mean gradient of 4 mmHg. The ascending aortic root measures 40 mm where on a prior study it was actually measuring 43 mm. 4. Trace to mild mitral and mild tricuspid insufficiency, the PA pressure is minimally elevated at 37 mmHg. 5. Normal pericardium and when compared to the prior echocardiogram dated November 17, 2023, realistically there is no significant change. Left Ventricle The left ventricle is normal in size. There is normal wall thickness. There is normal left ventricular systolic function. The LV ejection fraction is 65-70% (visually estimated). Simpsons biplane EF 67%. LV diastolic function appears within normal limits for age. Right Ventricle The right ventricle appears at the upper limits of normal size. The RV basal dimension is 43 mm. There is normal right ventricular systolic function. Left Atrium The left atrium is normal in size. The left atrial volume index by BSA is 20 mL/m2. Right Atrium The right atrium is normal in size. The right atrial area is 15 cm2. Mitral Valve There is mild thickening of both mitral leaflets. There is no mitral stenosis. There is trace to mild mitral regurgitation. Tricuspid Valve The tricuspid valve appears normal. There is no tricuspid stenosis. There is mild tricuspid regurgitation. The RV systolic pressure was calculated at 37 mmHg (using TR peak velocity of 2.9 m/s and assuming an RA pressure of 3 mmHg). Aortic Valve The aortic valve is tricuspid. There is leaflet thickening without stenosis. There is no aortic stenosis. There is no aortic regurgitation. The aortic sinuses are mildly dilated. The ascending aorta is moderately dilated. Pulmonic Valve The pulmonic valve appears normal. There is no pulmonic stenosis. There is no pulmonic regurgitation. Pericardium There is no pericardial effusion. General Findings The image quality was fair (3). Technique(s) used in the evaluation: Multiplane, Color flow Doppler, Spectral Doppler and Epiaortic scan. Adequate windows include: parasternal, apical, subcostal and suprasternal. The predominant rhythm during the study was sinus. Patient tolerated the procedure well. Comparison Findings Compared to prior TTE on 11/17/2023, IAS/IVS The interatrial septum appears normal. us Marli Tong [facility] CV ECHO ORDERABLES Final R esult * (ABNORMAL) Lipid panel (01/01/2025 8:02 AM EDT) HDL 73 mg/dL [facility] Comment: Interpretation <40 mg/dL: Low HDL cholesterol (major risk factor for CHD) Greater than or equal to 60 mg/dL: High HDL cholesterol ( negative risk factor for CHD) HDL - cholesterol is affected by a number of factors, e.g. smoking, excerise, hormones, sex and age. CHOLESTEROL 216 0 - 240 mg/dL [facility] TRIGLYCERIDES 67 30 - 160 mg/dL [facility] LDL 130(H) 50 - 129 mg/dL [facility] Comment: LDL levels in terms of risk for coronary heart disease: <100 mg/dL: Optimal 100-129 mg/dL: Near or above optimal 130-159 mg/dL: Borderline high 160-189 mg/dL: High >190 mg/dL: Very High CARDIAC RISK RATIO 3.0(L) 3.3 - 4.4 [facility] Blood 01/01/2025 8:02 AM EDT 01/01/2025 8:05 AM EDT us Alonso Denney MD LAB BLOOD ORDERABLES Final Result [facility] [address] [place] [address] * BI MAMMOGRAM SCREENING WITH TOMOSYNTHESIS WITH CAD (BILATERAL) (12/09/2024 7:52 AM EDT) Anatomical Region Laterality Modality Breast Left, Breast Right, Breast Bilateral Bila teral Mammography 12/09/2024 3:03 PM EDT Impressions 12/09/2024 3:04 PM EDT No mammographic evidence of malignancy in either breast. Annual screening mammography is recommended. BI-RADS 1 NEGATIVE The patient will be notified of the results and recommendations. Narrative 12/09/2024 3:04 PM EDT BI MAMMOGRAM SCREENING WITH TOMOSYNTHESIS WITH CAD (BILATERAL) Additional patient information: Screening. COMPARISON: Comparison is made with relevant prior imaging. Breast composition: The breasts are heterogeneously dense, which may obscure small masses. FINDINGS: No abnormal masses, suspicious calcifications, or other significant findings are identified mammographically in either breast. There has been no significant interval change. Procedure Note Christie Lazo MD - 12/09/2024 BI MAMMOGRAM SCREENING WITH TOMOSYNTHESIS WITH CAD (BILATERAL) Additional patient information: Screening. COMPARISON: Comparison is made with relevant prior imaging. Breast composition: The breasts are heterogeneously dense, which mayobscure small masses. FINDINGS: No abnormal masses, suspicious calcifications, or other significantfindings are identified mammographically in either breast. There has been no significant interval change. IMPRESSION: No mammographic evidence of malignancy in either breast. Annual screening mammography is recommended. BI-RADS 1 NEGATIVE The patient will be notified of the results and recommendations. us Alonso Denney MD IMG MG EXAMS Final Resu lt * ENDOSCOPY, COLON (10/21/2024 10:28 AM EST) Narrative Transcriptions Jamie Ferris MD - 10/21/2024 10:28 AM EST [facility] Patient Name: Rhoda Ojeda Attending MD:: JAMIE FERRIS MD, , Procedure Date: 10/21/2024 10:28 AM Date of : 1960 Age: 64 Admit Type: Outpatient Gender: Female Room: [facility] Referring MD: ALONSO DENNEY MD Exam Type: Colonoscopy Indications: High risk colon cancer surveillance: Personalhistory of colonic polyps Medications: Monitored Anesthesia Care Procedure: Informed consent was obtained from the patientafter discussion of the indications, limitations, alternatives, benefits, and risks of the procedure. Risks specifically discussed include but are not limited to medication reactions, missed lesions, bleeding, perforation, or the need for emergent surgery. Throughout the procedure, the patient's blood pressure, pulse, end-tidal CO2, and oxygensaturations were monitored continuously. The Colonoscope was introduced through the anus and advanced to the cecum, identified by appendiceal orifice and ileocecal valve. The colonoscopy was performed with difficulty due to significantlooping. Successful completion of the procedure was aided by using manual pressure. The patient tolerated the procedure well. The quality of the bowelpreparation was adequate. The quality of the bowel preparationwas evaluated using the BBPS (Hurley Bowel Preparation Scale) with scores of: Right Colon = 3 (entiremucosa seen well with no residual staining, smallfragments of stool or opaque liquid), Transverse Colon = 2 (minor amount of residual staining, small fragmentsof stool and/or opaque liquid, but mucosa seen well)and Left Colon = 2 (minor amount of residual staining, small fragments of stool and/or opaque liquid, but mucosa seen well). The total BBPS score equals 7.The quality of the bowel preparation was good.Anatomical landmarks were photographed. Complications: No immediate complications. Estimated blood loss: Minimal. Findings: The perianal and digital rectal examinations were normal. A 5 mm polyp was found in the transverse colon. The polyp was sessile. The polyp was removed with acold snare. Resection and retrieval were complete. Multiple small and large-mouthed diverticula were found in the entire colon. Internal hemorrhoids were found duringretroflexion. The hemorrhoids were mild. The exam was otherwise normal throughout theexamined colon. Impression: - One 5 mm polyp in the transverse colon, removedwith a cold snare. Resected and retrieved. - Moderate diverticulosis in the entire examinedcolon. - Internal hemorrhoids. Recommendation: - Discharge patient to home. - Await pathology results. - Repeat colonoscopy in 5 years for surveillancewith propofol and golytely prep. JAMIE FERRIS MD, 10/21/2024 10:55:51 AM This report has been signed electronically. Number of Addenda: 0 Note Initiated On: 10/21/2024 10:28 AM Procedure Code(s): --- Professional --- 08544, Colonoscopy, flexible; with removal of tumor(s), polyp(s), or other lesion(s) by snare technique --- Technical --- 91014, Colonoscopy, flexible; with removal of tumor(s), polyp(s), or other lesion(s) by snare technique Diagnosis Code(s): --- Professional --- Z86.010, Personal history of colonic polyps D12.3, Benign neoplasm of transverse colon (hepatic flexure or splenic flexure) K64.8, Other hemorrhoids K57.30, Diverticulosis of large intestine without perforation or abscess without bleeding --- Technical --- Z86.010, Personal history of colonic polyps D12.3, Benign neoplasm of transverse colon (hepatic flexure or splenic flexure) K64.8, Other hemorrhoids K57.30, Diverticulosis of large intestine without perforation or abscess without bleeding CPT copyright 2021 [employer]. All rights reserved. The codes documented in this report are preliminary and upon art therapy certified supervisor reviewmay be revised to meet current compliance requirements. Procedure Date: 10/21/2024 10:28:[address] [place] [address] Alonso Denney MD GI PROCEDURE ORDERABLES Fi nal Result * BD DXA AXIAL (SPINE) WITH HIP (09/30/2024 2:38 PM EST) Anatomical Region Laterality Modality Bone Density Bone Density 09/30/2024 2:36 PM EST Impressions 09/30/2024 2:42 PM EST Interpretation: Osteopenia. Narrative 09/30/2024 2:42 PM EST Referred By: KIRT SONI Indications: Postmenopausal and Osteopenia Scanner: Subblime A with serial# of [id number] located at [facility] Bone Density Scan (DXA) 09/30/24 Details of prior DXA scans are available by clicking View Image BMD T- Z- Skeletal Site gm/cm2 score score BMD Change Since Prior Scan ------ ----- ----- PA Spine (L1 L2 L3) 0.918 -0.90 0.90 N/A Total Hip (Left) 0.675 -2.20 -0.90 N/A Femoral Neck (Left) 0.614 -2.10 -0.50 N/A ------ ----- ----- * Denotes significant change when >= 0.022 g/cm2 for the spine, 0.027 g/cm2 for the total hip, 0.029 g/cm2 for the femoral neck. Interpretation: Osteopenia. Technical Quality: Imaging of all sites was of adequate quality. FRAX: Based on FRAX(r) 3.6 ([place] White female), this patient's likelihood of hip fracture is 4% and major osteoporotic fracture is 30.1% over the next 10 years. The patient reported the following risks of fracture on a questionnaire: parental history of hip fracture and glucocorticoid use. Additional Information: -World Health Organization criteria classify adults based on lowest T-score at PA spine, hip or forearm: Normal (T-score >= -1.0), Osteopenia (T-score between -1 and -2.5), or Osteoporosis (T-score <= -2.5). At [facility], T-scores are compared to peak bone density of a young white gender matched reference population. - For premenopausal women and men under the age of 50, Z-scores (comparison to age, gender, and ethnicity matched reference population) are used: Above expected range for age (Z-score >= 2.0), Within expected range of age (Z-score 1.9 to -1.9), or Below expected range for age (Z-score <= -2.0). - The Bone Health and Osteoporosis Foundation recommends that treatment be considered in men aged more than 50 years and in postmenopausal women with ANY of the following: Prior hip or vertebral fractures; T-score of <= -2.5 at the PA spine or hip; or 10 year fracture probability by FRAX of >= 3% for the hip or >= 20% for major osteoporotic fracture. - The FRAX algorithm (https://www.doroteo.ac.uk/FRAX/tool.aspx) is designed to predict 10-year fracture risk in treatment-naive adults between the ages of 40 and 90. It is not intended to be used in those receiving pharmacologic osteoporosis treatment. - Including race/ethnicity in the generation of T- or Z-scores or in the FRAX calculation is complicated, and currently undergoing active review to ensure that we can give patients the best information on their risk of fracture. -Some prior studies may not be compatible with our comparison software. -Click on View Full Report to see subsequent pages with images and prior bone density results. Reviewed By: Liz Wu MD on 09/30/2024 14:42:31 Procedure Note Liz Wu MD - 09/30/2024 Referred By: KIRT SONI Indications: Postmenopausal and Osteopenia Scanner: Subblime A with serial# of [id number] located at [facility] Bone Density Scan (DXA) 09/30/24 Details of prior DXA scans are available by clicking View Image BMD T- Z- Skeletal Site gm/cm2 score score BMD Change Since Prior Scan ------ ----- PA Spine (L1 L2 L3) 0.918 -0.90 0.90 N/A Total Hip (Left) 0.675 -2.20 -0.90 N/A Femoral Neck (Left) 0.614 -2.10 -0.50 N/A ------ ----- * Denotes significant change when >= 0.022 g/cm2 for the spine, 0.027g/cm2 for the total hip, 0.029 g/cm2 for the femoral neck. Interpretation: Osteopenia. Technical Quality: Imaging of all sites was of adequate quality. FRAX: Based on FRAX(r) 3.6 ([place] White female), this patient's likelihoodof hip fracture is 4% and major osteoporotic fracture is 30.1% over the next10 years. The patient reported the following risks of fracture on a questionnaire: parental history of hip fracture and glucocorticoid use. Additional Information: -World Health Organization criteria classify adults based on lowestT-score at PA spine, hip or forearm: Normal (T-score >= -1.0), Osteopenia (T-score between -1 and -2.5), or Osteoporosis (T-score <= -2.5). At [facility], T-scores are compared to peak bone density of a young white gender matched reference population. - For premenopausal women and men under the age of 50, Z-scores(comparison to age, gender, and ethnicity matched reference population) are used:Above expected range for age (Z-score >= 2.0), Within expected range of age (Z-score 1.9 to -1.9), or Below expected range for age (Z-score <= -2.0). - The Bone Health and Osteoporosis Foundation recommends that treatment be considered in men aged more than 50 years and in postmenopausal women with ANY of the following: Prior hip or vertebral fractures; T-score of <= -2.5 at the PA spine or hip; or 10 year fracture probability by FRAX of >= 3%for the hip or >= 20% for major osteoporotic fracture. - The FRAX algorithm (https://www.doroteo.ac.uk/FRAX/tool.aspx) is designed to predict 10-year fracture risk in treatment-naive adultsbetween the ages of 40 and 90. It is not intended to be used in those receiving pharmacologic osteoporosis treatment. - Including race/ethnicity in the generation of T- or Z-scores or in the FRAX calculation is complicated, and currently undergoing active review to ensure that we can give patients the best information on their risk of fracture. -Some prior studies may not be compatible with our comparison software. -Click on View Full Report to see subsequent pages with images and prior bone density results. Reviewed By: Liz Wu MD on 09/30/2024 14:42:31 IMPRESSION: Interpretation: Osteopenia. us Kirt Soni MD, MPH IMG BD BONE DENSITY DEXA Final Result * Pap Smear (06/22/2022 12:00 AM EDT) 06/22/2022 06/23/2022 9:1 5 AM EDT Narrative SEE NARRATIVE - 06/29/2022 2:15 [place] [address] [employer]: Marli Hernandez MD MANAGER RADIO Cytology Report FINAL DIAGNOSIS A. PAP SMEAR (SUREPATH) CE: SPECIMEN ADEQUACY: Satisfactory for evaluation; transformation zone present. Evaluation limited by scant cellularity. INTERPRETATION: NEGATIVE FOR INTRAEPITHELIAL LESION OR MALIGNANCY. Electronically Signed Out By: MARCIA Gomes(ASCP) The Pap test is a screening test primarily for squamous cancers and precursors and has associated false-negative and false-positive results. New technologies such as liquid-based preparations may decrease but will not eliminate all false-negative results. Regular sampling and follow-up of unexplained clinical signs and symptoms are recommended to minimize false negative results. PROCEDURES/ADDENDA HPV Testing (Requested) Ordered Date: 06/23/2022 A. PAP SMEAR (SUREPATH) CE: Human Papilloma Virus Test Negative for high-risk human papillomavirus types 16, 18, 45 and the Other high risk probe set (Includes 31, 33, 35, 39, 51, 52, 56, 58, 59, 66, 68) by txtr Onclarity HR-HPV analysis. Clinical correlation is advised. This HPV test was performed at [facility], [address] [place] [address]. This test has been FDA approved for SurePath cervical cytology specimens. The accuracy and precision of this test for all other specimen sources has been verified in the Cytopathology Laboratory of the [facility] and has not been cleared or approved by the U.S. Food and Drug Administration. Clinical correlation is advised. CLINICAL HISTORY Date of Last Menstrual Period: Not Provided Menstrual History: Post Menopausal Other Clinical Conditions: Screening Pap SPECIMEN SOURCE A: PAP SMEAR (SUREPATH) CE Patient Name: RHODA BOWEN : 1960 (Age: 62) Sex: F Institution[facility] Location: [facility] Date of Collection: 06/22/2022 Date of Reported: 06/29/2022 14:15 Results to: Fátima Cha MD us Fátima Cha MD CYTOLOGY ORDERABLES Final Result SEE NARRATIVE * Hepatitis C antibody, qualitative (01/26/2020 10:32 AM EDT) HCV NON-REACTIV E NON-REACTI VE [facility] Blood 01/26/2020 10:3 2 AM EDT 01/26/2020 10:39 AM EDT us Alonso Denney MD LAB BLOOD ORDERABLES Final Result Performing Organization Address City/[facility]/ZIP Co de Phone Number [facility] [address] [place] [address] from Last 3 Months or Most Recently Relevant to Health Maintenance Insurance MEDICARE PART A & B [employer] SUPPLEMENT MEDICARE PART A & B [employer] SUPPLEMENT MEDICARE PART A & B [employer] SUPPLEMENT MEDICARE PART A & B [employer] SUPPLEMENT MEDICARE PART A & B [employer] SUPPLEMENT MEDICARE PART A & B [employer] MED[employer] SUPPLEMENT Care Teams Referral Specialist Relationship Specialty Start Date End Date Alonso Denney MD [address] [place] [address], [address] [place] [address] [email or web address] PCP - General 07/02/17 Alonso Denney MD [address] [place] [address], [address] [place] [address] Historical LMR Provider 07/08/17 Homa Richards MD [address] [place] [address] [facility], [place] [address] [email or web address] Historical LMR Provider 07/08/17 Additional Source Comments The information contained in this document represents components of the legal health record. It is not the complete legal health record.[facility]
--- OUTSIDE RECORDS SUMMARY | 2025-06-04 12:12 | XMS_ITS | Encounter Summary ---
Author Organization [facility] Address [address] [place] [address] [place] [address] Phone Care Team Providers Care Section Crews Activities Clerk Name Role Phone Alonso Denney MD Unavailable [phone] Fátima Cha MD Unavailable [phone] Alonso Denney MD Primary Care Provider [phone] Josephine Beltran NP Unavailable [phone] Prudence Mishra MD Unavailable [phone] Jarrell Pretty MD Unavailable [phone] Homa Richards MD Unavailable [phone] Alonso Denney MD Unavailable [phone] Encounter Details Date Type Department Care Team (Late st Contact Info) Description 07/09/2020 Procedure Pass [facility], [address] [address] Social History Tobacco Use Types Packs/Day Years [...] Info) Description 03/13/2025 Procedure Pass [facility] [address] [place] [address] 06/22/2025 11:00 AM EDT Office Visit [address] [place] [address] Alonso Denney MD [address] [place] [address], [address] [place] [address] 08/11/2025 3:00 PM EST Nurse Only [address] [place] [address] Alonso Denney MD [address] [place] [address], [address] [place] [address] 08/17/2025 2:45 PM EST Appointment Echo Lab [address] [place] [address] Ese Grier DNP [address] [place] [address], [address] [place] [address] 09/21/2025 10:30 AM EST Office Visit [facility] [address] [place] [address] Dr 3rd Floor, [address] [place] [address] Star Goodman DO [address] [place] [address] [place] [address] 01/05/2026 9:10 AM EDT Office Visit [facility] [address] [place] [address] [place] [address] Angle Rouse MD, MPH [address] [place] [address], [address] [address] documented as of this encounter Visit Diagnoses Not on filedocumented in this encounter Additional Health Concerns Infection Onset Date Last Indicated Resolved Time COVID-19 11/29/2022 11/29/2022 12/20/2022 1:21 AM EDT CoV-Risk Comment:Per Ambulatory Triage Form 11/30/2022 11/30/202211/30 8:26 AM EDT Assessment Noted Time PHQ-2 Depression Total Score: 0 01/23/20 20 11:47 AM EDT documented as of this encounter Care Teams Section Crews Activities Clerk Relationship Specialty Start Date End Date Alonso Denney MD [address] [place] [address], [address] [place] [address] PCP - General 07/02/17 Alonso Denney MD [address] [place] [address], [address] [place] [address] Historical LMR Provider 07/08/17 Fátima Cha MD [address] [place] [address] Historical LMR Provider 07/08/17 09/24/21 Josephine Beltran NP [address] [place] [address] Historical LMR Provider 07/08/17 2 Prudence Mishra MD [address] [place] [address] Historical LMR Provider 07/08/17 Jarrell Pretty MD [address] [place] [address] Historical LMR Provider 07/08/17 09/24/21 Homa Richards MD [address] [place] [address] [facility], [place] [address] Historical LMR Provider 07/08/17 Alonso Denney MD [address] [place] [address], [address] [place] [address] [email or web address] Insurance Assigned Provider 01/18/19 documented as of this encounter Additional Source Comments The information contained in this document represents components of the legal health record. It is not the complete legal health record.[facility]
--- OUTSIDE RECORDS SUMMARY | 2025-06-04 12:12 | XMS_ITS | Encounter Summary ---
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 [...] Info) Description 03/13/2025 Procedure Pass [facility] [address] [place] [address] 06/22/2025 11:00 AM EDT Office Visit [address] [place] [address] Alonso Denney MD [address] [place] [address], [address] [place] [address] 08/11/2025 3:00 PM EST Nurse Only [address] [place] [address] Alonso Denney MD [address] [place] [address], [address] [place] [address] 08/17/2025 2:45 PM EST Appointment Echo Lab [address] [place] [address] Ese Grier DNP [address] [place] [address], [address] [place] [address] 09/21/2025 10:30 AM EST Office Visit [facility] [address] [place] [address] [address] Floor, [address] [place] [address] Star Goodman DO [address] [place] [address] [place] [address] 01/05/2026 9:10 AM EDT Office Visit [facility] Rheumatology [address] [place] [address] [place] [address] Angle Rouse MD, MPH [address] [place] [address], [address] [place] [address] documented as of this encounter Results * [...] documented as of this encounter Care Teams Hydroelectric Plant Mechanical Engineer Relationship Specialty Start Date End Date Alonso Denney MD [address] [place] [address], [address] [place] [address] PCP - General 10/16/17 Alonso Denney MD [address] [place] [address], [address] [place] [address] Historical LMR Provider 07/08/17 Homa Richards MD [address] [place] [address] [facility], [place] [address] [email or web address] Historical LMR Provider 07/08/17 documented as of this encounter Additional Source Comments The information contained in this document represents components of the legal health record. It is not the complete legal health record.[facility]
--- OUTSIDE RECORDS SUMMARY | 2025-06-04 12:12 | XMS_ITS | Encounter Summary ---
Author Organization [facility] Address [address] [place] [address] [place] [address] Phone Care Team Providers Care Customer Pricing Manager Name Role Phone Alonso Denney MD Unavailable [phone] Fátima Cha MD Unavailable [phone] Alonso Denney MD Primary Care Provider [phone] Josephine Beltran NP Unavailable [phone] Prudence Mishra MD Unavailable [phone] Jarrell Pretty MD Unavailable [phone] Homa Richards MD Unavailable [phone] Alonso Denney MD Unavailable [phone] Encounter Details Date Type Department Care Team (Late st Contact Info) Description 06/25/2018 Ancillary Orders [facility] [address] [place] [address] Fátima Cha MD 22 [facility], [address] [place] [address] Social History Tobacco Use Types Packs/Day Years [...] Info) Description 03/13/2025 Procedure Pass Echo Lab [address] [place] [address] 06/22/2025 11:00 AM EDT Office Visit [address] [place] [address] Alonso Denney MD [address] [place] [address], [address] [place] [address] 08/11/2025 3:00 PM EST Nurse Only [address] [place] [address] Alonso Denney MD [address] [place] [address], [address] [place] [address] [email or web address] 08/17/2025 2:45 PM EST Appointment Echo Lab [address] [place] [address] Ese Grier DNP [address] [place] [address], [address] [address] 09/21/2025 10:30 AM EST Office Visit [facility] [address] [place] [address] 3rd Floor, [address] [place] [address] Star Goodman DO [address] [place] [address] [place] [address] 01/05/2026 9:10 AM EDT Office Visit [facility] Rheumatology [address] [place] [address] [place] [address] Angle Rouse MD, MPH [address] [place] [address], [address] [place] [address] documented as of this encounter Visit Diagnoses Not on filedocumented in this encounter Additional Health Concerns Infection Onset Date Last Indicated Resolved Time COVID-19 11/29/2022 11/29/2022 12/20/2022 1:21 AM EDT CoV-Risk Comment:Per Ambulatory Triage Form 11/30/2022 11/30/202211/30 8:26 AM EDT documented as of this encounter Care Teams Customer Pricing Manager Relationship Specialty Start Date End Date Alonso Denney MD [address] [place] [address], [address] [place] [address] [email or web address] PCP - General 07/02/17 Alonso Denney MD [address] [place] [address], [address] [place] [address] Historical LMR Provider 07/08/17 Fátima Cha MD [address] [place] [address] [email or web address] Historical LMR Provider 07/08/17 09/24/21 Josephine Beltran NP [address] [place] [address] Historical LMR Provider 07/08/17 2 Prudence Mishra MD [address] [place] [address] Historical LMR Provider 07/08/17 Jarrell Pretty MD [address] [place], [place] [address], [place] [address] Historical LMR Provider 07/08/17 09/24/21 Homa Richards MD [address] [place] [address] [facility], [place] [address] Historical LMR Provider 07/08/17 Alonso Denney MD [address] [place] [address], [address] [place] [address] [email or web address] Insurance Assigned Provider 01/18/19 documented as of this encounter Additional Source Comments The information contained in this document represents components of the legal health record. It is not the complete legal health record.[facility]
--- OUTSIDE RECORDS SUMMARY | 2025-06-04 12:12 | XMS_ITS | Encounter Summary ---
Author Organization [facility] Address [address] [place] [address] [place] [address] Phone Care Team Providers Care Roll Changer Name Role Phone Alonso Denney MD Unavailable [phone] Fátima Cha MD Unavailable [phone] Alonso Denney MD Primary Care Provider [phone] Josephine Beltran NP Unavailable [phone] Prudence Mishra MD Unavailable [phone] Jarrell Pretty MD Unavailable [phone] Homa Richards MD Unavailable [phone] Alonso Denney MD Unavailable [phone] Encounter Details Date Type Department Care Team (Late st Contact Info) Description 06/25/2018 Ancillary Orders Virtual Department 30 [place] [address] Fátima Cha MD 22 [facility], [address] [place] [address] Breast screening Social History Tobacco Use Types Packs/Day Years [...] Info) Description 03/13/2025 Procedure Pass Echo Lab [address] [place] [address] 06/22/2025 11:00 AM EDT Office Visit [address] [place] [address] Alonso Denney MD [address] [place] [address], [address] [place] [address] 08/11/2025 3:00 PM EST Nurse Only [address] [place] [address] Alonso Denney MD [address] [place] [address], [address] [place] [address] 08/17/2025 2:45 PM EST Appointment Echo Lab [address] [place] [address] Ese Grier DNP [address] [place] [address], [address] [place] [address] 09/21/2025 10:30 AM EST Office Visit [facility] [address] [place] [address] 3rd Floor, [address] [place] [address] Star Goodman DO [address] [place] [address] [place] [address] 01/05/2026 9:10 AM EDT Office Visit [facility] Rheumatology [address] [place] [address] [place] [address] Angle Rouse MD, MPH [address] [place] [address], [address] [place] [address] [email or web address] documented as of this encounter Results * BI MAMMOGRAM SCREENING WITH TOMOSYNTHESIS WITH CAD (BILATERAL) (08/28/2018 2:16 PM EST) Anatomical Region Laterality Modality Breast Left, Breast Right, Breast Bilateral Bila teral Mammography 08/28/2018 2:32 PM EST Impressions 08/28/2018 2:35 PM EST No mammographic evidence of malignancy. BI-RADS CATEGORY: 2 - Benign finding. DENSITY: The breast tissue is heterogeneously dense, an appearance which lowers the sensitivity of mammography. POS - [id number] Narrative 08/28/2018 2:35 PM EST Standard digital full-field 2-D C view and two-plane tomographic imaging was performed and compared with multiple prior studies, most recently 08/27/2017, with utilization of computer-aided detection. The breast parenchyma is heterogeneously dense, somewhat limiting mammographic sensitivity. The stromal markings are essentially unchanged in overall appearance and distribution. No dominant spiculated mass, suspicious clustered microcalcifications, or focal zone of pathologic skin thickening or retraction are noted to have arisen in the interim. Chronic focus of asymmetric density in the deep lateral left breast on the craniocaudal view appears stable over multiple years. Procedure Note Wanda Rey MD - 08/28/2018 Standard digital full-field 2-D C view and two-plane tomographic imagingwas performed and compared with multiple prior studies, most yuhxsoxj61/11/2017, with utilization of computer-aided detection. The breast parenchyma is heterogeneously dense, somewhat limitingmammographic sensitivity. The stromal markings are essentially unchangedin overall appearance and distribution. No dominant spiculated mass,suspicious clustered microcalcifications, or focal zone of pathologic skinthickening or retraction are noted to have arisen in the interim. Chronicfocus of asymmetric density in the deep lateral left breast on thecraniocaudal view appears stable over multiple years. IMPRESSION: No mammographic evidence of malignancy. BI-RADS CATEGORY: 2 - Benign finding. DENSITY: The breast tissue is heterogeneously dense, an appearance whichlowers the sensitivity of mammography. POS - [id number] Fátima Cha MD IMG MG EXAMS Final Resu lt documented in this encounter Visit Diagnoses Diagnosis Breast screening Breast screening, unspecified Breast screening Breast screening, unspecified documented in this encounter Additional Health Concerns Infection Onset Date Last Indicated Resolved Time COVID-19 11/29/2022 11/29/2022 12/20/2022 1:21 AM EDT CoV-Risk Comment:Per Ambulatory Triage Form 11/30/2022 11/30/202211/30 8:26 AM EDT documented as of this encounter Care Teams Roll Changer Relationship Specialty Start Date End Date Alonso Denney MD [address] [place] [address], [address] [place] [address] PCP - General 07/02/17 Alonso Denney MD [address] [place] [address], [address] [place] [address] Historical LMR Provider 07/08/17 Fátima Cha MD [address] [place] [address], [address] [place] [address] Historical LMR Provider 07/08/17 09/24/21 Josephine Bletran NP [address] [place] [address] Historical LMR Provider 07/08/17 2 Prudence Mishra MD [address] [place] [address], 2nd [place] [address] Historical LMR Provider 07/08/17 Jarrell Pretty MD [address] [place] [address], 2nd [place] [address] Historical LMR Provider 07/08/17 09/24/21 Homa Richards MD [address] [place] [address] [facility], [place] [address] Historical LMR Provider 07/08/17 Alonso Denney MD [address] [place] [address], [address] [place] [address] Insurance Assigned Provider 01/18/19 documented as of this encounter Additional Source Comments The information contained in this document represents components of the legal health record. It is not the complete legal health record.[facility]
--- OUTSIDE RECORDS SUMMARY | 2025-06-04 12:12 | XMS_ITS | Encounter Summary ---
Author Organization [facility] Address [address] [place] [address] Phone Care Team Providers Care Distribution Superintendent Name Role Phone Alonso Denney MD Unavailable [phone] Alonso Denney MD Primary Care Provider + [phone] Homa Richards MD Unavailable [phone] Encounter Details Date Type Department Care Team (Late st Contact Info) Description 10/21/2024 Procedure Pass [facility] Admitting Dept Virtual Department [address] [place] [address] Social History Tobacco Use Types Packs/Day Years [...] high school, GED, job training, learning the Persian language, technical skills, or developing parenting skills)? [...] Description 03/13/2025 Procedure Pass Echo Lab [address] [place] [address] 06/22/2025 11:00 AM EDT Office Visit [facility] [address] [place] [address] [place] [address] Alonso Denney MD [address] [place] [address], [address] [place] [address] 08/11/2025 3:00 PM EST Nurse Only [facility] [address] [place] [address] [place] [address] Alonso Denney MD [address] [place] [address], [address] [place] [address] 08/17/2025 2:45 PM EST Appointment Echo Lab [address] [place] [address] Ese Grier DNP [address] [place] [address], [address] [place] [address] 09/21/2025 10:30 AM EST Office Visit [facility] [address] [place] [address] 3rd Floor, [address] [place] [address] Star Goodman DO [address] [place] [address] [place] [address] 01/05/2026 9:10 AM EDT Office Visit [facility] Rheumatology [address] [place] [address] [place] [address] Angle Rouse MD, MPH [address] [place] [address], [address] [place] [address] documented as of this encounter Visit Diagnoses Not on filedocumented in this encounter Additional Health Concerns Assessment Noted Time PHQ-2 Depression Total Score: 0 06/18/20 24 1:39 PM EDT documented as of this encounter Care Teams Distribution Superintendent Relationship Specialty Start Date End Date Alonso Denney MD [address] [place] [address], [address] [place] [address] PCP - General 07/02/17 Alonso Denney MD [address] [place] [address], [address] [place] [address] Historical LMR Provider 07/08/17 Homa Richards MD [address] [place] [address] [facility], [place] [address] [email or web address] Historical LMR Provider 07/08/17 documented as of this encounter Additional Source Comments The information contained in this document represents components of the legal health record. It is not the complete legal health record.[facility]
== END 2025-06-04 10:51 | disposition home or self-care (01) ==
LOC: HO.HNS 10:12
PROVIDERS: PCP Family Medicine; Visit Provider Physician Assistant
DX: M48.062 Spinal stenosis, lumbar region with neurogenic claudication (principal)
CPT/HCPCS: 99024

== ENCOUNTER → 2025-06-04 10:12 | Outpatient (BNVA) | payer MEDICARE, SELFPAY | PROVIDERS: PCP Family Medicine; Visit Provider Physician Assistant | DX: Z47.89 Encounter for other orthopedic aftercare (principal); M48.062 Spinal stenosis, lumbar region with neurogenic claudication; Z98.890 Other specified postprocedural states | CPT/HCPCS: 99212 ==

== ENCOUNTER 2025-07-16 08:50 | Outpatient (REF) | payer MEDICARE, SELFPAY ==
--- NOTE | ~2025-07-16 | XR_ITS ---
EXAMINATION: XR LUMBOSACRAL SPINE CLINICAL INFORMATION: M48.062 - Spinal stenosis, lumbar region with neurogenic claudication COMPARISON: None available. TECHNIQUE: Lateral views in neutral, flexion and extension position. AP view. FINDINGS: Dextroconvex rotoscoliosis apex at L3. Multilevel marginal osteophyte formation and endplate sclerosis and decreased intervertebral disc height pronounced at L4-5 and L5-S1. No gross malalignment in neutral position nor flexion or extension positioning. Vascular calcifications, aorta. Vascular clips right upper quadrant abdomen likely cholecystectomy. Spina bifida occulta, S1. XR/XR lumbar spine 4V min IMPRESSION: Multilevel spondylosis and dextroconvex rotoscoliosis without acute fracture or listhesis or gross instability. Atherosclerosis disease. Electronically signed by: Johnson Phillips MD 07/16/2025 10:01 AM EDT
== END 2025-07-16 08:51 | disposition home or self-care (01) ==
LOC: HO.HOSX 08:50
PROVIDERS: PCP Family Medicine; Visit Provider Physician Assistant
DX: M48.062 Spinal stenosis, lumbar region with neurogenic claudication (principal)
CPT/HCPCS: 72110; 99212

== ENCOUNTER 2025-07-16 08:50 | Outpatient (AMB) | payer MEDICARE, SELFPAY ==
--- OUTSIDE RECORDS SUMMARY | 2025-07-15 13:45 | XMS_ITS | Encounter Summary ---
Author Organization [facility] Address [address] [place] [address] Phone Care Team Providers Care Electronics Parts Sales Representative Name Role Phone Alonso Denney MD Unavailable [phone] Alonso Denney MD Primary Care Provider + [phone] Homa Richards MD Unavailable [phone] Encounter Details Date Type Department Care Team (Latest Contact Info) Description 07/15/2025 1:45 PM EDT Telemedicine [facility] [address] [place] [address] Alonso Denney MD [address] [facility], [address] [place], [place] [id number] [email or web address] Coronary artery calcification seen on CAT scan (Primary Dx); Other hyperlipidemia; Aneurysm of ascending aorta without rupture; Pulmonary nodules Social History Tobacco Use Types Packs/Day Years [...] as food, clothing, or medical care? No 06/22/2025 In the past 12 months have y ou been in a relationship with a person who hurts, threatens, or tries to control you? No 06/22/2025 Are you denied basic needs s uch as food, clothing, or medical care? No 06/22/2025 In the past 12 months have y ou been in a relationship with a person who hurts, threatens, or tries to control you? No 06/22/2025 Comments No Sex and Gender Information Value Date Recorded Sex Assigned at Female 03/08/2020 12:06 PM EDT Legal Sex Female 9:51 PM EDT Gender Identity Female 03/08/2020 12:06 PM EDT Sexual Orientation Straight 03/08/2020 12 :06 PM EDT documented as of this encounter Progress Notes * Alonso Denney MD - 07/15/2025 1:45 PM EDT Rhoda Ojeda presents for a virtual telephone visit for the following medical conditions. This virtual visit is being used from the author's clinic or home office in place of an in-person visit and will be billed in a similar fashion. No chief complaint on file. SUBJECTIVE Called patient to review recent abnormal CT scan chest. This was originally ordered to follow-up onlung nodules and aneurysm of aorta. Patient denies any exertional dyspnea chest pains or palpitations with exertion. She recently hiked this past weekend without difficulty. The following portions of the patient's history were reviewed and updated as appropriate: allergies, current medications, past family history, past medical history, past social history, past surgicalhistory and problem list. Data Review CT Chest [[id number]] 06/30/2025 (Final) Narrative CT CHEST WITHOUT CONTRAST Referring clinician's provided indication for this examination in Epic: * Thoracic aortic aneurysm (TAA), follow up TECHNIQUE: Multidetector CT of the chest was performed without intravenous contrast using tailored dose modulation. COMPARISON: 06/29/2024 non-contrast chest CT FINDINGS: Devices/Tubes/Lines: None. Lungs: Well-expanded. No acute airspace infiltrate. Stable chronic 3 mm right upper lobe nodule (4:69), 3 mm right upper lobe nodule (4:81), 3 mm linear right upper lobe nodule (4:97), 3 mm right middle lobe kya-fissural nodule (4:233), and 4 mm right lower lobe nodule (4:218). Chronic right upperlobe bulla with marginal calcifications. Scattered zones of mucous plugging and few granulomas without new or enlarging nodules identified. Pleura: No pleural effusion or pneumothorax. Mediastinum: No significant pericardial effusion. Aorta stable in caliber at 4.3 x 4.3 cm at the level of the right main pulmonary artery (5:1 3). Stable calcific plaquing of aortic arch. No descending aneurysm. Stable right thyroid calcification. Moderate amount of coronary artery calcifications. Lymph Nodes: No pathologically enlarged mediastinal, supraclavicular, or axillary nodes apparent. Thelma stable in appearance. Upper Abdomen: No adrenal nodules. Status post cholecystectomy. Spleen and visualized liver stable in appearance. Chest Wall: No chest wall mass. Bones: Stable lower thoracic spondylosis. No suspicious skeletal lesions. Impression 1. Stable benign-appearing pulmonary nodules and ascending aortic aneurysm. No acute intrathoracic process or other significant interval change from 06/29/2024 apparent. Signed by: Kimo Gray MD on 07/06/2025 9:07 AM ASSESSMENT/PLAN Assessment & Plan Coronary artery calcification seen on CAT scan I reviewed findings of CT scan including moderate coronary artery calcifications. She does not havesymptoms. I do recommend starting statin with the goal of trying to achieve an LDL of 70 or less. Irecommend atorvastatin 10 mg daily. Common side effects including musculoskeletal side effects reviewed. Other hyperlipidemia Check fasting lipids in 3 to 4 months. Orders: Lipid panel; Future Aneurysm of ascending aorta without rupture Reviewed stable findings with regards to aneurysm and lung nodules. Repeat CT in a year. Pulmonary nodules I have maintained a longitudinal relationship with the patient, overseeing the care of their Encounter Diagnoses Name Primary? Coronary artery calcification seen on CAT scan Yes Other hyperlipidemia Aneurysm of ascending aorta without rupture Pulmonary nodules . This has significantly influenced my decision-making and treatment plans during today's encounter. Patient expresses understanding and agrees with plan. All questions were answered satisfactorily. Alonso Denney MD No follow-ups on file. Virtual Visit Attestation Modality: video Provider Location, state disclosed to patient: practice location Patient Location: home Patient State or Country: [place] E&M Billing based on time ([id number]): Yes Total time spent on date of service (min): 25 I personally spent the total time as documented on care for this patient on the date of the encounter. This includes ubts-[id number] time during the visit as well as non ewet-iy-wqew time spent on chartreview, documentation, and care coordination. documented in this encounter Miscellaneous Notes * Assessment & Plan Note - Alonso Denney MD - 07/15/2025 1:45 PM EDT Associated Problem(s): Coronary artery calcification seen on CAT scan I reviewed findings of CT scan including moderate coronary artery calcifications. She does not havesymptoms. I do recommend starting statin with the goal of trying to achieve an LDL of 70 or less. Irecommend atorvastatin 10 mg daily. Common side effects including musculoskeletal side effects reviewed. * Assessment & Plan Note - Alonso Denney MD - 07/15/2025 1:45 PM EDT Associated Problem(s): Other hyperlipidemia Check fasting lipids in 3 to 4 months. Orders: Lipid panel; Future * Assessment & Plan Note - Alonso Denney MD - 07/15/2025 1:45 PM EDT Associated Problem(s): Aneurysm of ascending aorta without rupture Reviewed stable findings with regards to aneurysm and lung nodules. Repeat CT in a year. * Assessment & Plan Note - Alonso Denney MD - 07/15/2025 1:45 PM EDT Associated Problem(s): Pulmonary nodules I have maintained a longitudinal relationship with the patient, overseeing the care of their Encounter Diagnoses Name Primary? Coronary artery calcification seen on CAT scan Yes Other hyperlipidemia Aneurysm of ascending aorta without rupture Pulmonary nodules . This has significantly influenced my decision-making and treatment plans during today's encounter. documented in this encounter Plan of Treatment Upcoming Encounters Date Type Department Care Team (Late st Contact Info) Description 03/13/2025 Procedure Pass Echo Lab [address] [place] [address] 08/11/2025 3:00 PM EST Nurse Only [address] [place] [address] Alonso Denney MD [address] [place] [address], [address] [place] [address] 08/17/2025 2:45 PM EST Appointment Echo Lab [address] [place] [address] Ese Grier DNP [address] [facility], [address] [place] [address] 09/21/2025 10:30 AM EST Office Visit [facility] [address] [place] [address] 3rd Floor, [address] [place] [address] Star Goodman DO [address] [place] [address] [place] [address] 01/05/2026 9:10 AM EDT Office Visit [facility] Rheumatology [address] [place] [address] [place] [address] Angle Rouse MD, MPH [address] [place] [address], [address] [place] [address] 06/25/2026 9:00 AM EDT Office Visit [facility] [address] [place] [address] [place] [address] Alonso Denney MD [address] [place] [address], [address] [place] [address] [email or web address] Scheduled Orders Name Type Priority Associated Diagnoses Orde r Schedule Lipid panel Lab Routine Other hyperlipidemia Expected: 10/15/2025, Expires: 11/14/2025 documented as of this encounter Visit Diagnoses Diagnosis Coronary artery calcification seen on CAT scan- Primary Other hyperlipidemia Aneurysm of ascending aorta without rupture Pulmonary nodules Other diseases of lung, not elsewhere classified documented in this encounter Additional Health Concerns Assessment Noted Time PHQ-2 Depression Total Score: 0 06/22/20 11:03 AM EDT documented as of this encounter Care Teams Electronics Parts Sales Representative Relationship Specialty Start Date End Date Alonso Denney MD [address] [place] [address], [address] [place] [address] PCP - General 07/02/17 Alonso Denney MD [address] [place] [address], [address] [place] [address] Historical LMR Provider 07/08/17 Homa Richards MD [address] [place] [address] [facility] Sports Medicine, [place] [address] Historical LMR Provider 07/08/17 documented as of this encounter Additional Source Comments The information contained in this document represents components of the legal health record. It is not the complete legal health record.[facility]
--- NOTE | 2025-07-16 08:59 | A.SPINEOV_ITS ---
Intake Visit Reasons: 2nd post op Intake Note: Ms. Ojeda is here today for her 2nd post op. Loss Prevention Associate Required: No Allergies Iodinated Contrast Media Allergy (Severe, Verified 06/04/25 10:19) Hives gabapentin Allergy (Intermediate, Verified 06/04/25 10:19) Confusion Penicillins Allergy (Mild, Verified 06/04/25 10:19) Rash ampicillin Adverse Reaction (Mild, Verified 06/04/25 10:19) Rash Assessment & Plan Assessment & Plan (1) Lumbar stenosis with neurogenic claudication: Code(s): M48.062 - Spinal stenosis, lumbar region with neurogenic claudication Category: Medical Plan Operation: Right L3-4 Laminotomy Rhoda is a pleasant 65 year old female who comes in today for her 2nd postop visit after having right L3-4 lumbar decompression completed by Dr. Fernandes. Unfortunately, she continues to report the same right-sided leg pain that she had prior to surgery has persisted despite her operation. She reported this as well during her last visit and it does not seem to have resolved. She states that at baseline she is very active person in his attempted to continue doing basic activities that bring mary jo such as hiking [place] through [place] [employer]. Unfortunately her right-sided leg pain has been limiting her ability to do many things that she enjoys. When asked about the nature for pain she says that it is exactly the same as it was prior to surgery in the same distribution down her leg. She states that it starts in her right posterior buttocks shoots down the right lateral leg wraps over the right knee in terminates near the anterior tibialis/anterior ankle. She has attempted to utilize NSAIDs such as ibuprofen to help treat this, however she only gets modest relief. She also has been engaging in stretching/exercise at home, but feels this only causes her additional pain. She states that her pain is worse after prolonged activity, and is somewhat alleviated by rest. No new neurological deficits. The patient ambulates well but does so slowly likely due to pain. She rises from a seated position without difficulty. She uses no assistive devices to ambulate. I would like to send Rhoda for a set of dynamic lumbar spine x-rays to rule out instability. If her x-rays appear unremarkable I will likely order a MRI with/without contrast to ensure that nothing has worsened since her surgery. Basilio Fernandes MD,PhD [facility] Orders: Orders XR lumbar spine 4V min Today M48.062 - Spinal stenosis, lumbar region with neurogenic claudication Coding Level of Care Code Global (23853) Diagnoses Lumbar stenosis with neurogenic claudication M48.062
--- OUTSIDE RECORDS SUMMARY | 2025-07-16 09:46 | XMS_ITS | Encounter Summary ---
Author Organization [facility] Address [address] [place] [address] Phone Care Team Providers Care Playground Worker Name Role Phone Alonso Denney MD Unavailable [phone] Alonso Denney MD Primary Care Provider + [phone] Homa Richards MD Unavailable [phone] Encounter Details Date Type Department Care Team (Late st Contact Info) Description 09/12/2024 Procedure Pass Echo [facility] [place] [place] [address] Social History Tobacco Use Types Packs/Day Years [...] high school, GED, job training, learning the Italian language, technical skills, or developing parenting skills)? [...] Info) Description 03/13/2025 Procedure Pass Echo Lab [address] [place] [address] 08/11/2025 3:00 PM EST Nurse Only [facility] [address] [place] [address] [place] [address] Alonso Denney MD [address] [facility], [address] [place] [address] 08/17/2025 2:45 PM EST Appointment Echo Lab [address] [place] [address] Ese Grier DNP [address] [facility], [address] [place] [address] 09/21/2025 10:30 AM EST Office Visit [facility] [address] [place] [address] 3rd Floor, [address] [place] [address] Star Goodman DO [address] [facility] [address] [place] [address] 01/05/2026 9:10 AM EDT Office Visit [facility] Rheumatology [address] [place] [address] [place] [address] Angle Rouse MD, MPH [address] [facility], [address] [place] [address] 06/25/2026 9:00 AM EDT Office Visit [facility] [address] [place] [address] [place] [address] Alonso Denney MD [address] [place] [address], [address] [place] [address] documented as of this encounter Visit Diagnoses Not on filedocumented in this encounter Additional Health Concerns Assessment Noted Time PHQ-2 Depression Total Score: 0 06/18/20 24 1:39 PM EDT documented as of this encounter Care Teams Playground Worker Relationship Specialty Start Date End Date Alonso Denney MD [address] [place] [address], [address] [place] [address] [email or web address] PCP - General 07/02/17 Alonso Denney MD [address] [place] [address], [address] [place] [address] Historical LMR Provider 07/08/17 Homa Richards MD [address] [place] [address] [facility] Medicine, [place] [address] [email or web address] Historical LMR Provider 07/08/17 documented as of this encounter Additional Source Comments The information contained in this document represents components of the legal health record. It is not the complete legal health record.[facility]
--- OUTSIDE RECORDS SUMMARY | 2025-07-16 09:46 | XMS_ITS | Encounter Summary ---
Author Organization [facility] Address [address] [facility] [address] [place] [address] Phone Care Team Providers Care Hr Operations Advisor Name Role Phone Alonso Denney MD Unavailable [phone] Alonso Denney MD Primary Care Provider + [phone] Homa Richards MD Unavailable [phone] Alonso Denney MD Unavailable [phone] Encounter Details Date Type Department Care Team (Latest Contact Info) Description 12/12/2021 Transcribe Orders [facility] [address] [place] [address] Pedro Rivas MD [address] [place] [address], [address] [place], [place] [id number] [email or web address] Neuropathy (Primary Dx); Numbness Social [...] Info) Description 03/13/2025 Procedure Pass Echo Lab [place] [address] [place] [address] [place] [address] 08/11/2025 3:00 PM EST Nurse Only [address] [place] [address] Alonso Denney MD [address] [place] [address], [address] [place] [address] 08/17/2025 2:45 PM EST Appointment Echo Lab [address] [place] [address] Ese Grier DNP [address] [place] [address], [address] [place] [address] 09/21/2025 10:30 AM EST Office Visit [facility] [address] [place] [address] Dr 3rd Floor, [address] [place] [address] Star Goodman DO [address] [place] [address] [place] [address] 01/05/2026 9:10 AM EDT Office Visit [facility] Rheumatology [address] [place] [address] [place] [address] Angle Rouse MD, MPH [address] [place] [address], [address] [place] [address] 06/25/2026 9:00 AM EDT Office Visit [address] [place] [address] Alonso Denney MD [address] [place] [address], [address] [place] [address] documented as of this encounter Results * MYELOPEROXIDASE ANTIBODIES, IGG (12/16/2021 10:11 AM EDT) MYELOPEROXIDASE AB <0.2 <0.4 (Negative) U [facility] Blood 12/16/2021 10:1 1 AM EDT 12/16/2021 10:36 AM EDT Pedro Rivas MD LAB BLOOD ORDERABLES Final R esult Performing Organization Address [facility] [[email or web address]] Co de Phone Number [facility] [address] [place] [address] * SS-A/SS-B antibodies (12/12/2021 9:56 AM EDT) SS-A/RO IGG <0.2 <1.0 (Negative) U [facility] SS-B/LA IGG <0.2 <1.0 (Negative) U [facility] Blood 12/12/2021 9:56 AM EDT 12/12/2021 10:13 AM EDT Pedro Rivas MD LAB BLOOD ORDERABLES Final R esult Performing Organization Address [facility] de Phone Number [facility] [address] [place] [address] * (ABNORMAL) Anti-Neutrophil Cytoplasmic Antibody (ANCA) (12/12/2021 9:56 AM EDT) C-ANCA Negative Negative [facility] P-ANCA Positive(A) Negative [facility] Comment: (NOTE) 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 Suggest further testing for anti-myeloperoxidase (anti-MPO) antibodies, if clinically indicated. ADDITIONAL INFORMATION This test was developed and its performance characteristics determined by [facility] in a manner consistent with CLIA requirements. This test has not been cleared or approved by the U.S. Food and Drug Administration. Blood 12/12/2021 9:56 AM EDT 12/12/2021 10:13 AM EDT Pedro Rivas MD LAB BLOOD ORDERABLES Final R esult Performing Organization Address City/[facility]/ZIP Co de Phone Number [facility]/[address] [place] [address] * ACETYLCHOLINE RECEPTOR BINDING ANTIBODY (12/12/2021 9:56 AM EDT) ACH RECEPTOR BIND AB 0.00 <=0.02 nmol/L [facility] DPT OF LAB MED AND PAT+ Comment: (NOTE) ADDITIONAL INFORMATION This test was developed and its performance characteristics determined by [facility] in a manner consistent with CLIA requirements. This test has not been cleared or approved by the U.S. Food and Drug Administration. Blood 12/12/2021 9:56 AM EDT 12/12/2021 10:13 AM EDT Pedro Rivas MD LAB BLOOD ORDERABLES [facility] Performing Organization Address [facility] [[email or web address]] Co de Phone Number [facility] DPT OF LAB MED AND PAT+ [address] [place] [address] * (ABNORMAL) CPK (creatine kinase) (12/12/2021 9:56 AM EDT) Pathologist [facility] CREATINE KINASE 231(H) 21 - 215 U/L [facility] Blood 12/12/2021 9:56 AM EDT 12/12/2021 10:13 AM EDT Pedro Rivas MD LAB BLOOD ORDERABLES Final R esult Performing Organization Address City/[facility]/ZIP Co de Phone Number [facility] [address] [place] [address] documented in this encounter Visit Diagnoses Diagnosis [...] documented as of this encounter Care Teams Hr Operations Advisor Relationship Specialty Start Date End Date Alonso eDnney MD [address] [place] [address], [address] [place] [address] PCP - General 07/02/17 Alonso Denney MD [address] [place] [address], [address] [address] Historical LMR Provider 07/08/17 Homa Richards MD [address] [place] [address] [facility] Medicine, [place] [address] Historical LMR Provider 07/08/17 Alonso Denney MD [address] [place] [address], [address] [place] [address] Insurance Assigned Provider 01/18/19 documented as of this encounter Additional Source Comments The information contained in this document represents components of the legal health record. It is not the complete legal health record.[facility]
--- OUTSIDE RECORDS SUMMARY | 2025-07-16 09:46 | XMS_ITS | Encounter Summary ---
Author Organization [facility] Address [address] [place] [address] Phone Care Team Providers Care Winder Tender Name Role Phone Alonso Denney MD Unavailable [phone] Alonso Denney MD Primary Care Provider + [phone] Homa Richards MD Unavailable [phone] Encounter Details Date Type Department Care Team (Late st Contact Info) Description 11/16/2023 Ancillary Orders [address] [id number] Homa Richards MD [address] [place] [address] [facility], [place], [place] [id number] [email or web address] Acute pain of right hip [...] high school, GED, job training, learning the Maur[place]ian language, technical skills, or developing parenting skills)? [...] 11/18/2023 8:25 AM Christi Goodson RN * [place] Suicide Severity Rating Scale (Screener/Recent Self-Report) Question [...] Info) Description 03/13/2025 Procedure Pass Echo Lab [address] [place] [address] 08/11/2025 3:00 PM EST Nurse Only [address] [place] [address] Alonso Denney MD [address] [place] [address], [address] [place] [address] 08/17/2025 2:45 PM EST Appointment Echo Lab [address] [place] [address] Ese Grier DNP [address] [place] [address], [address] [place] [address] 09/21/2025 10:30 AM EST Office Visit [facility] [address] [place] [address] Dr 3rd Floor, [address] [place] [address] Star Goodman DO [address] [place] [address] [place] [address] 01/05/2026 9:10 AM EDT Office Visit [facility] Rheumatology [address] [place] [address] [place] [address] Angle Rouse MD, MPH [address] [place] [address], [address] [place] [address] 06/25/2026 9:00 AM EDT Office Visit [address] [place] [address] Alonso Denney MD [address] [place] [address], [address] [place] [address] Pending Results Name Type Priority Associated Diagnoses [...] documented as of this encounter Care Teams Winder Tender Relationship Specialty Start Date End Date Alonso Denney MD [address] [place] [address], [address] [place] [address] [facility] - General 07/02/17 Alonso Denney MD [address] [place] [address], [address] [place] [address] Historical LMR Provider 07/08/17 Homa Richards MD [address] [place] [address] [facility], [place] [address] Historical LMR Provider 07/08/17 documented as of this encounter Additional Source Comments The information contained in this document represents components of the legal health record. It is not the complete legal health record.[facility]
--- OUTSIDE RECORDS SUMMARY | 2025-07-16 09:46 | XMS_ITS | Encounter Summary ---
Author Organization [facility] Address [address] [place] [address] [place] [address] Phone Care Team Providers Care Transportation Clerk Name Role Phone Alonso Denney MD Unavailable [phone] Fátima Cha MD Unavailable [phone] Alonso Denney MD Primary Care Provider [phone] Josephine Beltran NP Unavailable [phone] Prudence Mishra MD Unavailable [phone] Jarrell Pretty MD Unavailable [phone] Homa Richards MD Unavailable [phone] Alonso Denney MD Unavailable [phone] Encounter Details Date Type Department Care Team (Late st Contact Info) Description 10/30/2019 Procedure Pass [facility] Admitting Dept Virtual Department [address] [place] [address] Social History Tobacco Use Types Packs/Day Years [...] Info) Description 03/13/2025 Procedure Pass Echo Lab [address] [place] [address] 08/11/2025 3:00 PM EST Nurse Only [address] [place] [address] Alonso Denney MD [address] [place] [address], [address] [place] [address] 08/17/2025 2:45 PM EST Appointment Echo Lab [address] [place] [address] Ese Grier DNP [address] [place] [address], [address] [place] [address] 09/21/2025 10:30 AM EST Office Visit [facility] [address] [place] [address] 3rd Floor, [address] [place] [address] Star Goodman DO [address] [place] [address] [place] [address] 01/05/2026 9:10 AM EDT Office Visit [facility] Rheumatology [address] [place] [address] [place] [address] Angle Rouse MD, MPH [address] [place] [address], [address] [place] [address] 06/25/2026 9:00 AM EDT Office Visit [address] [place] [address] Alonso Denney MD [address] [place] [address], [address] [place] [address] documented as of this encounter Visit Diagnoses Not on filedocumented in this encounter Additional Health Concerns Infection Onset Date Last Indicated Resolved Time COVID-19 11/29/2022 11/29/2022 12/20/2022 1:21 AM EDT CoV-Risk Comment:Per Ambulatory Triage Form 11/30/2022 11/30/202211/30 8:26 AM EDT documented as of this encounter Care Teams Transportation Clerk Relationship Specialty Start Date End Date Alonso Denney MD [address] [place] [address], [address] [place] [address] PCP - General 07/02/17 Alonso Denney MD [address] [place] [address], [address] [place] [address] Historical LMR Provider 07/08/17 Fátima Cha MD [address] [place] [address] Historical LMR Provider 07/08/17 09/24/21 Josephine Beltran NP [address] [place] [address] Historical LMR Provider 07/08/17 2 Prudence Mishra MD [address] [place] [address] Historical LMR Provider 07/08/17 Jarrell Pretty MD [address] [place] [address] Historical LMR Provider 07/08/17 09/24/21 Homa Richards MD [address] [place] [address] Orthopedics & Sports Medicine, [facility] [place] [address] [email or web address] Historical LMR Provider 07/08/17 Alonso Denney MD [address] [place] [address], [address] [place] [address] [email or web address] Insurance Assigned Provider 01/18/19 documented as of this encounter Additional Source Comments The information contained in this document represents components of the legal health record. It is not the complete legal health record.[facility]
--- OUTSIDE RECORDS SUMMARY | 2025-07-16 09:46 | XMS_ITS | Encounter Summary ---
Author Organization [facility] Address [address] [facility] [address] [place] [address] Phone Care Team Providers Care Laborer [place] Name Role Phone Alonso Denney MD Unavailable [phone] Fátima Cha MD Unavailable [phone] Alonso Denney MD Primary Care Provider [phone] Josephine Beltran NP Unavailable [phone] Prudence Mishra MD Unavailable [phone] Jarrell Pretty MD Unavailable [phone] Homa Richards MD Unavailable [phone] Alonso Denney MD Unavailable [phone] Encounter Details Date Type Department Care Team (Late st Contact Info) Description 11/03/2019 Procedure Pass [facility], [address] [address] Social History Tobacco Use Types Packs/Day Years [...] Info) Description 03/13/2025 Procedure Pass Echo Lab [address] [place] [address] 08/11/2025 3:00 PM EST Nurse Only [address] [place] [address] Alonso Denney MD [address] [place] [address], [address] [place] [address] 08/17/2025 2:45 PM EST Appointment Echo Lab [address] [place] [address] Ese Grier DNP [address] [place] [address], [address] [place] [address] 09/21/2025 10:30 AM EST Office Visit [facility] [address] [place] [address] Dr 3rd Floor, [address] [place] [address] Star Goodman DO [address] [place] [address] [place] [address] 01/05/2026 9:10 AM EDT Office Visit [facility] Rheumatology [address] [place] [address] [place] [address] Angle Rouse MD, MPH [address] [place] [address], [address] [place] [address] 06/25/2026 9:00 AM EDT Office Visit [address] [place] [address] Alonso Denney MD [address] [place] [address], [address] [place] [address] [email or web address] documented as of this encounter Visit Diagnoses Not on filedocumented in this encounter Additional Health Concerns Infection Onset Date Last Indicated Resolved Time COVID-19 11/29/2022 11/29/2022 12/20/2022 1:21 AM EDT CoV-Risk Comment:Per Ambulatory Triage Form 11/30/2022 11/30/202211/30 8:26 AM EDT documented as of this encounter Care Teams Laborer [employer] Relationship Specialty Start Date End Date Alonso Denney MD [address] [place] [address], [address] [place] [address] [email or web address] PCP - General 07/02/17 Alonso Denney MD [address] [place] [address], [address] [place] [address] Historical LMR Provider 07/08/17 Fátima Cha MD [address] [place] [address], [address] [place] [address] [email or web address] Historical LMR Provider 07/08/17 09/24/21 Josephine Beltran NP [address] [place] [address] Historical LMR Provider 07/08/17 2 Prudence Mishra MD [address] [place] [address], 2nd [place] [address] Historical LMR Provider 07/08/17 Jarrell Pretty MD [address] [place] [address], 2nd [place] [address] Historical LMR Provider 07/08/17 09/24/21 Homa Richards MD [address] [place] [address] Orth[facility] Sports Medicine, [place] [address] Historical LMR Provider 07/08/17 Alonso Denney MD [address] [place] [address], [address] [place] [address] [email or web address] Insurance Assigned Provider 01/18/19 documented as of this encounter Additional Source Comments The information contained in this document represents components of the legal health record. It is not the complete legal health record.[facility]
--- OUTSIDE RECORDS SUMMARY | 2025-07-16 09:46 | XMS_ITS | Encounter Summary ---
Author Organization [facility] Address [address] [place] [address] [place] [address] Phone Care Team Providers Care Residence Manager Name Role Phone Alonso Denney MD Unavailable [phone] Fátima Cha MD Unavailable [phone] Alonso Denney MD Primary Care Provider + [phone] Josephine Beltran NP Unavailable [phone] Prudence Mishra MD Unavailable [phone] Jarrell Pretty MD Unavailable [phone] Homa Richards MD Unavailable [phone] Alonso Denney MD Unavailable [phone] Reason for Referral * MRI/CAT Scan - Closed Specialty Diagnoses / Procedures Referred By Contac t Referred To Contact Radiology Diagnoses Ataxia Numbness Procedures MRI Brain Pedro Rivas MD Phone: tel: fax: [email or web address] [address] [address] Phone: tel: Referral ID Status Reason Start Date Expiration Date Visits Re quested Visits Authorized [id number] Closed 11/07/2019 12/07/2019 1 1 Encounter Details Date Type Department Care Team (Latest Contact Info) Description 11/03/2019 Transcribe Orders Virtual Department [address] [place] [address] Pedro Rivas MD [address] [place] [address], [address] [place] [address] [email or web address] Ataxia (Primary Dx); Numbness Social History [...] Info) Description 03/13/2025 Procedure Pass Echo Lab [address] [place] [address] 08/11/2025 3:00 PM EST Nurse Only [facility] [address] [place] [address] [place] [address] Alonso Denney MD [address] [place] [address], [address] [place] [address] 08/17/2025 2:45 PM EST Appointment Echo Lab [address] [place] [address] Ese Grier DNP [address] [place] [address], [address] [place] [address] 09/21/2025 10:30 AM EST Office Visit [facility] [address] [place] [address] 3rd Floor, [address] [place] [address] Star Goodman DO [address] [place] [address] [place] [address] 01/05/2026 9:10 AM EDT Office Visit [facility] Rheumatology [address] [place] [address] Angle Rouse MD, MPH [address] [facility], [address] [place] [address] [email or web address] 06/25/2026 9:00 AM EDT Office Visit [facility] [address] [place] [address] Alonso Denney MD [address] [facility], [address] [place] [address] [email or web address] documented as of this encounter Results * MRI BRAIN WITHOUT CONTRAST (11/10/2019 8:17 AM EST) Anatomical Region Laterality Modality Head Magnetic Resonan ce 11/10/2019 8:56 AM EST Impressions 11/10/2019 9:01 AM EST No evidence of multiple sclerosis. No findings to account for the patient's symptoms. POS - [id number] Narrative 11/10/2019 9:01 AM EST HISTORY: 59-year-old [...] atrophy. There are a few scattered subcentimeter [id number] white matter lesions which are of doubtful significance. Nocorpus callosum, brainstem or cerebellar lesions. No mass, mass effect,midline shift or extra-axial fluid collections. Ventricles: No hydrocephalus. Vasculature: Normal vascular flow-voids. Orbits: Normal. Mastoids/Middle Ear/Paranasal Sinuses: Mild ethmoid sinus mucosalthickening. Soft Tissues: Unremarkable. Bone Marrow: Unremarkable. IMPRESSION: No evidence of multiple sclerosis. No findings to account for thepatient's symptoms. POS - [id number] Pedro Rivas MD IMG MR HEAD/NECK Final [...] documented as of this encounter Care Teams Residence Manager Relationship Specialty Start Date End Date Alonso Denney MD [address] [place] [address], [address] [place] [address] PCP - General 07/02/17 Alonso Denney MD [address] [place] [address], [address] [place] [address] Historical LMR Provider 07/08/17 Fátima Cha MD [address] [place] [address], [address] [place] [address] Historical LMR Provider 07/08/17 09/24/21 Josephine Beltran NP [address] [place] [address] [address] [place] [address] Historical LMR Provider 07/08/17 2 Prudence Mishra MD [address] [place] [address] Historical LMR Provider 07/08/17 Jarrell Pretty MD [address] [place] [address] Historical LMR Provider 07/08/17 09/24/21 Homa Richards MD [address] [place] [address] [facility], [place] [address] Historical LMR Provider 07/08/17 Alonso Denney MD [address] [place] [address], [address] [place] [address] [email or web address] Insurance Assigned Provider 01/18/19 documented as of this encounter Additional Source Comments The information contained in this document represents components of the legal health record. It is not the complete legal health record.[facility]
--- OUTSIDE RECORDS SUMMARY | 2025-07-16 09:46 | XMS_ITS | Encounter Summary ---
Author Organization [facility] Address [address] [place] [address] Phone Care Team Providers Care Business Improvement Manager Name Role Phone Alonso Denney MD Unavailable [phone] Alonso Denney MD Primary Care Provider + [phone] Homa Richards MD Unavailable [phone] Alonso Denney MD Unavailable [phone] Encounter Details Date Type Department Care Team (Late st Contact Info) Description 05/01/2023 Procedure Pass Echo [facility] [address] [place] [address] Social History Tobacco Use Types Packs/Day [...] high school, GED, job training, learning the Sudanese language, technical skills, or developing parenting skills)? [...] Description 03/13/2025 Procedure Pass Echo Lab [address] [place] [address] 08/11/2025 3:00 PM EST Nurse Only [facility] [place] [facility] [address] [place] [address] [place] [address] Alonso Denney MD [address] [place] [address], [address] [place] [address] 08/17/2025 2:45 PM EST Appointment Echo Lab [address] [place] [address] Ese Grier DNP [address] [place] [address], [address] [place] [address] 09/21/2025 10:30 AM EST Office Visit [facility] [address] [place] [address] Dr 3rd Floor, [address] [place] [address] Star Goodman DO [address] [facility] [address] [place] [address] 01/05/2026 9:10 AM EDT Office Visit [facility] Rheumatology [address] [place] [address] Angle Rouse MD, MPH [address] [facility], [address] [place] [address] 06/25/2026 9:00 AM EDT Office Visit [address] [place] [address] Alonso Denney MD [address] [place] [address], [address] [place] [address] documented as of this encounter Visit Diagnoses Not on filedocumented in this encounter Additional Health Concerns Assessment Noted Time PHQ-2 Depression Total Score: 0 12/23/19 23 9:02 AM EDT documented as of this encounter Care Teams Business Improvement Manager Relationship Specialty Start Date End Date Alonso Denney MD [address] [place] [address], [address] [place] [address] PCP - General 07/02/17 Alonso Denney MD [address] [place] [address], [address] [place] [address] Historical LMR Provider 07/08/17 Homa Richards MD [address] [place] [address] Orthopedics & Sports Medicine, [place] [address] [email or web address] Historical LMR Provider 07/08/17 Alonso Denney MD [address] [place] [address], [address] [place] [address] [email or web address] Insurance Assigned Provider 01/18/19 documented as of this encounter Additional Source Comments The information contained in this document represents components of the legal health record. It is not the complete legal health record.[facility]
--- OUTSIDE RECORDS SUMMARY | 2025-07-16 09:47 | XMS_ITS | Encounter Summary ---
Author Organization [facility] Address [address] [place] [address] Phone Care Team Providers Care Experimental Mechanic Electrical Name Role Phone Alonso Denney MD Unavailable [phone] Alonso Denney MD Primary Care Provider + [phone] Homa Richards MD Unavailable [phone] Alonso Denney MD Unavailable [phone] Encounter Details Date Type Department Care Team (Late st Contact Info) Description 04/04/2023 Procedure Pass [facility], [address] [address] Social History Tobacco Use Types Packs/Day Years [...] high school, GED, job training, learning the Kuwaiti language, technical skills, or developing parenting skills)? [...] Info) Description 03/13/2025 Procedure Pass Echo Lab [address] [place] [address] 08/11/2025 3:00 PM EST Nurse Only [facility] [address] [place] [address] [place] [address] Alonso Denney MD 22 [facility], [address] [place] [address] 08/17/2025 2:45 PM EST Appointment Echo Lab [address] [place] [address] Ese Grier DNP 22 [facility], [address] [place] [address] 09/21/2025 10:30 AM EST Office Visit [facility] [address] [place] [address] 3rd Floor, [address] [place] [address] Star Goodman DO 22 [facility] [address] [place] [address] 01/05/2026 9:10 AM EDT Office Visit [facility] Rheumatology [address] [place] [address] [place] [address] Angle Rouse MD, MPH 22 [facility], [address] [place] [address] [email or web address] 06/25/2026 9:00 AM EDT Office Visit [facility] Medicine [address] [place] [address] [place] [address] Alonso Denney MD [address] [place] [address], [address] [place] [address] documented as of this encounter Visit Diagnoses Not on filedocumented in this encounter Additional Health Concerns Assessment Noted Time PHQ-2 Depression Total Score: 0 12/23/19 23 9:02 AM EDT documented as of this encounter Care Teams Experimental Mechanic Electrical Relationship Specialty Start Date End Date Alonso Denney MD [address] [place] [address], [address] [place] [address] PCP - General 07/02/17 Alonso Denney MD [address] [place] [address], [address] [place] [address] Historical LMR Provider 07/08/17 Homa Richards MD [address] [place] [address] [facility] [place] [address] [email or web address] Historical LMR Provider 07/08/17 Alonso Denney MD [address] [place] [address], [address] [place] [address] [email or web address] Insurance Assigned Provider 01/18/19 documented as of this encounter Additional Source Comments The information contained in this document represents components of the legal health record. It is not the complete legal health record.[facility]
--- OUTSIDE RECORDS SUMMARY | 2025-07-16 09:47 | XMS_ITS | Encounter Summary ---
Author Organization [facility] Address [address] [place] [address] Phone Care Team Providers Care Gaming Department Head Name Role Phone Alonso Denney MD Unavailable [phone] Alonso Denney MD Primary Care Provider + [phone] Homa Richards MD Unavailable [phone] Encounter Details Date Type Department Care Team (Late st Contact Info) Description 03/14/2024 Procedure Pass [facility], [address] [address] Social History Tobacco Use Types Packs/Day Years [...] high school, GED, job training, learning the [place] language, technical skills, or developing parenting [...] your housing situation today? I have teresa quirgoa 12/22/2022 How many times have you move [...] Info) Description 03/13/2025 Procedure Pass Echo Lab [address] [place] [address] 08/11/2025 3:00 PM EST Nurse Only [facility] [address] [place] [address] [place] [address] Alonso Denney MD [address] [place] [address], [address] [place] [address] 08/17/2025 2:45 PM EST Appointment Echo Lab [address] [place] [address] Ese Grier DNP [address] [place] [address], [address] [place] [address] 09/21/2025 10:30 AM EST Office Visit [facility] [address] [place] [address] Dr 3rd Floor, [address] [place] [address] Star Goodman DO [address] [facility] [address] [place] [address] 01/05/2026 9:10 AM EDT Office Visit [facility] Rheumatology [address] [place] [address] [place] [address] Angle Rouse MD, MPH [address] [facility], [address] [place] [address] [email or web address] 06/25/2026 9:00 AM EDT Office Visit [facility] Medicine [address] [place] [address] [place] [address] Alonso Denney MD [address] [place] [address], [address] [place] [address] documented as of this encounter Visit Diagnoses Not on filedocumented in this encounter Additional Health Concerns Assessment Noted Time PHQ-2 Depression Total Score: 0 03/14/20 24 9:39 AM EDT documented as of this encounter Care Teams Gaming Department Head Relationship Specialty Start Date End Date Alonso Denney MD [address] [place] [address], [address] [place] [address] PCP - General 07/02/17 Alonso Denney MD [address] [place] [address], [address] [place] [address] Historical LMR Provider 07/08/17 Homa Richards MD [address] [place] [address] [facility], [place], [place] [id number] [email or web address] Historical LMR Provider 07/08/17 documented as of this encounter Additional Source Comments The information contained in this document represents components of the legal health record. It is not the complete legal health record.[facility]
--- OUTSIDE RECORDS SUMMARY | 2025-07-16 09:47 | XMS_ITS | Encounter Summary ---
Author Organization [facility] Address [address] [place] [address] [place] [address] Phone Care Team Providers Care Nutrition Tech Name Role Phone Alonso Denney MD Unavailable [phone] Fátima Cha MD Unavailable [phone] Alonso Denney MD Primary Care Provider [phone] Josephine Beltran NP Unavailable [phone] Prudence Mishra MD Unavailable [phone] Jarrell Pretty MD Unavailable [phone] Homa Richards MD Unavailable [phone] Alonso Denney MD Unavailable [phone] Encounter Details Date Type Department Care Team (Late st Contact Info) Description 10/25/2017 Procedure Pass [facility] Admitting Dept Virtual Department [address] [place] [address] Social History Tobacco Use Types Packs/Day Years [...] Info) Description 03/13/2025 Procedure Pass Echo Lab [address] [place] [address] 08/11/2025 3:00 PM EST Nurse Only [address] [place] [address] Alonso Denney MD [address] [place] [address], [address] [place] [address] 08/17/2025 2:45 PM EST Appointment Echo Lab [address] [place] [address] Ese Grier DNP [address] [place] [address], [address] [place] [address] 09/21/2025 10:30 AM EST Office Visit [facility] [address] [place] [address] Dr 3rd Floor, [address] [place] [address] Star Goodman DO [address] [place] [address] [place] [address] 01/05/2026 9:10 AM EDT Office Visit [facility] Rheumatology [address] [place] [address] [place] [address] Angle Rouse MD, MPH [address] [place] [address], [address] [place] [address] 06/25/2026 9:00 AM EDT Office Visit [address] [place] [address] Alonso Denney MD [address] [place] [address], [address] [place] [address] documented as of this encounter Visit Diagnoses Not on filedocumented in this encounter Additional Health Concerns Infection Onset Date Last Indicated Resolved Time COVID-19 11/29/2022 11/29/2022 12/20/2022 1:21 AM EDT CoV-Risk Comment:Per Ambulatory Triage Form 11/30/2022 11/30/202211/30 8:26 AM EDT documented as of this encounter Care Teams Nutrition Tech Relationship Specialty Start Date End Date Alonso Denney MD [address] [place] [address], [address] [place] [address] PCP - General 07/02/17 Alonso Denney MD [address] [place] [address], [address] [place] [address] Historical LMR Provider 07/08/17 Fátima Cha MD [address] [place] [address] Historical LMR Provider 07/08/17 09/24/21 Josephine Beltran NP [address] [place] [address] Historical LMR Provider 07/08/17 2 Prudence Mishra MD [address] [place] [address] Historical LMR Provider 07/08/17 Jarrell Pretty MD [address] [place] [address] Historical LMR Provider 07/08/17 09/24/21 Homa Richards MD [address] [place] [address] Orthopedics & Sports Medicine, [facility] [place] [address] [email or web address] Historical LMR Provider 07/08/17 Alonso Denney MD [address] [place] [address], [address] [place] [address] [email or web address] Insurance Assigned Provider 01/18/19 documented as of this encounter Additional Source Comments The information contained in this document represents components of the legal health record. It is not the complete legal health record.[facility]
--- OUTSIDE RECORDS SUMMARY | 2025-07-16 09:47 | XMS_ITS | Encounter Summary ---
Author Organization [facility] Address [address] [place] [facility] [address] [place] [address] Phone Care Team Providers Care Ad Operations Intern Name Role Phone Alonso Denney MD Unavailable [phone] Alonso Denney MD Primary Care Provider + [phone] Homa Richards MD Unavailable [phone] Alonso Denney MD Unavailable [phone] Encounter Details Date Type Department Care Team (Late st Contact Info) Description 02/10/2022 Transcribe Orders [facility] [address] [place] [address] Alonso Denney MD 22 [facility], [address] [place], [place] [address] [email or web address] Social History Tobacco Use Types Packs/Day Years [...] high school, GED, job training, learning the Cambodian language, technical skills, or developing parenting skills)? [...] Info) Description 03/13/2025 Procedure Pass Echo Lab [address] [place] [address] 08/11/2025 3:00 PM EST Nurse Only [facility] [place] [facility] [address] [place] [address] [place] [address] Alonso Denney MD [address] [place] [address], [address] [place] [address] 08/17/2025 2:45 PM EST Appointment Echo Lab [address] [place] [address] Ese Grier DNP [address] [place] [address], [address] [place] [address] 09/21/2025 10:30 AM EST Office Visit [facility] [address] [place] [address] 3rd Floor, [address] [place] [address] Star Goodman DO [address] [place] [address] [place] [address] 01/05/2026 9:10 AM EDT Office Visit [facility] Rheumatology [address] [place] [address] Angle Rouse MD, MPH [address] [facility], [address] [place] [address] 06/25/2026 9:00 AM EDT Office Visit [facility] [address] [place] [address] Alonso Denney MD [address] [place] [address], [address] [place] [address] [email or web address] documented as of this encounter Visit Diagnoses Not on filedocumented in this encounter Additional Health Concerns Infection Onset Date Last Indicated Resolved Time COVID-19 11/29/2022 11/29/2022 12/20/2022 1:21 AM EDT CoV-Risk Comment:Per Ambulatory Triage Form 11/30/2022 11/30/202211/30 8:26 AM EDT Assessment Noted Time PHQ-2 Depression Total Score: 1 12/22/19 22 9:30 AM EDT documented as of this encounter Care Teams Ad Operations Intern Relationship Specialty Start Date End Date Alonso Denney MD [address] [place] [address], [address] [place] [address] [email or web address] PCP - General 07/02/17 Alonso Denney MD [address] [place] [address], [address] [place] [address] [email or web address] Historical LMR Provider 07/08/17 Homa Richards MD [address] [place] [address] Orth[facility] Medicine, [place] [address] [email or web address] Historical LMR Provider 07/08/17 Alonso Denney MD [address] [place] [address], [address] [place] [address] [email or web address] Insurance Assigned Provider 01/18/19 documented as of this encounter Additional Source Comments The information contained in this document represents components of the legal health record. It is not the complete legal health record.[facility]
--- OUTSIDE RECORDS SUMMARY | 2025-07-16 09:47 | XMS_ITS | Encounter Summary ---
Author Organization [facility] Address [address] [place] [address] Phone Care Team Providers Care Senior Sql Dba Name Role Phone Alonso Denney MD Unavailable [phone] Alonso Denney MD Primary Care Provider + [phone] Homa Richards MD Unavailable [phone] Encounter Details Date Type Department Care Team (Late st Contact Info) Description 09/27/2023 Procedure Pass [facility], [address] [address] Social History Tobacco Use Types Packs/Day Years [...] high school, GED, job training, learning the Tog[place]ese language, technical skills, or developing parenting skills)? [...] Description 03/13/2025 Procedure Pass Echo Lab [address] [place] [address] 08/11/2025 3:00 PM EST Nurse Only [facility] Medicine [address] [place] [address] [place] [address] Alonso Denney MD [address] [place] [address], [address] [place] [address] 08/17/2025 2:45 PM EST Appointment Echo Lab [address] [place] [address] Ese Grier DNP [address] [place] [address], [address] [place] [address] 09/21/2025 10:30 AM EST Office Visit [facility] [address] [place] [address] Dr 3rd Floor, [address] [place] [address] Star Goodman DO [address] [facility] [address] [place] [address] 01/05/2026 9:10 AM EDT Office Visit [facility] Rheumatology [address] [place] [address] Angle Rouse MD, MPH [address] [facility], [address] [place] [address] [email or web address] 06/25/2026 9:00 AM EDT Office Visit [facility] Medicine [address] [place] [address] [place] [address] Alonso Denney MD [address] [place] [address], [address] [place] [address] documented as of this encounter Visit Diagnoses Not on filedocumented in this encounter Additional Health Concerns Assessment Noted Time PHQ-2 Depression Total Score: 0 12/23/19 23 9:02 AM EDT documented as of this encounter Care Teams Senior Sql Dba Relationship Specialty Start Date End Date Alonso Denney MD [address] [place] [address], [address] [place] [address] PCP - General 07/02/17 Alonso Denney MD [address] [place] [address], [address] [place] [address] Historical LMR Provider 07/08/17 Homa Richards MD [address] [place] [address] [facility], [place] [address] [email or web address] Historical LMR Provider 07/08/17 documented as of this encounter Additional Source Comments The information contained in this document represents components of the legal health record. It is not the complete legal health record.[facility]
--- OUTSIDE RECORDS SUMMARY | 2025-07-16 09:47 | XMS_ITS | Encounter Summary ---
Author Organization [facility] Address [address] [facility] [address] [place] [address] Phone Care Team Providers Care Appeals Officer Name Role Phone Alonso Denney MD Unavailable [phone] Alonso Denney MD Primary Care Provider + [phone] Homa Richards MD Unavailable [phone] Encounter Details Date Type Department Care Team (Latest Contact Info) Description 08/02/2023 Transcribe Orders [facility] Laboratory [address] [facility] 2nd [place] [address] Paz Stone CNP 10 [place] [address] [email or web address] Constipation, unspecified constipation type (Primary Dx); External [...] Description 03/13/2025 Procedure Pass Echo Lab [address] [place] [address] 08/11/2025 3:00 PM EST Nurse Only [facility] [place] [facility] [address] [place] [address] [place] [address] Alonso Denney MD [address] [place] [address], [address] [place] [address] 08/17/2025 2:45 PM EST Appointment Echo Lab [address] [place] [address] Ese Grier DNP [address] [place] [address], [address] [place] [address] 09/21/2025 10:30 AM EST Office Visit [facility] [address] [place] [address] Dr 3rd Floor, [address] [place] [address] Star Goodman DO [address] [facility] [address] [place] [address] 01/05/2026 9:10 AM EDT Office Visit [facility] Rheumatology [address] [place] [address] [place] [address] Angle Rouse MD, MPH [address] [facility], [address] [place] [address] 06/25/2026 9:00 AM EDT Office Visit [address] [place] [address] Alonso Denney MD [address] [place] [address], [address] [place] [address] [email or web address] documented as of this encounter Results * Comprehensive metabolic panel (08/02/2023 2:53 PM EST) SODIUM 137 133 - 146 mmol/L [facility] POTASSIUM 3.8 3.3 - 5.1 mmol/L [facility] CHLORIDE 101 96 - 108 mmol/L [facility] CO2 27 21 - 35 mmol/L [facility] BUN 13 6 - 19 mg/dL [facility] CREATININE 0.70 0.5 - 1.5 mg/dL [facility] GLUCOSE 94 70 - 99 mg/dL [facility] ALBUMIN 4.4 3.9 - 4.8 g/dL [facility] TOTAL PROTEIN 7.3 6.5 - 8.0 g/dL [facility] CALCIUM 9.7 8.4 - 10.3 mg/dL [facility] ALKALINE PHOSPHATASE 107 39 - 117 U/L [facility] TOTAL BILIRUBIN 0.3 0.0 - 1.2 mg/dL [facility] AST 29 0 - 37 U/L [facility] ALT 12 0 - 40 U/L [facility] GLOBULIN 2.9 1 - 4.8 g/dL [facility] EGFR 96 >59 mL/min/1.7 3m2 [facility] Comment:Estimated glomerular filtration rate calculated using the CKD-EPI refit equation. ANION GAP 13 10 - 20 mmol/L [facility] Blood 08/02/2023 2:53 PM EST 08/02/2023 2:56 PM EST us Paz Stone [facility] BLOOD ORDERABLES Final Result [facility] [address] [place] [address] * (ABNORMAL) CBC and differential (08/02/2023 2:53 PM EST) WBC 4.68 4.00 - 11.00 K/uL [facility] RBC 4.16 3.72 - 5.30 M/uL [facility] HGB 13.8 11.4 - 15.9 g/dL [facility] HCT 40.4 34.2 - 46.8 % [facility] PLT 337 140 - 430 K/uL [facility] MCV 97.1(H) 78.0 - 97.0 fL [facility] MCH 33.2(H) 25.0 - 33.0 pg [facility] MCHC 34.2 32.0 - 36.0 g/dL [facility] RDW 13.0 11.0 - 16.0 % [facility] MPV 9.7 8.4 - 12.8 fl [facility] DIFF METHOD Auto [facility] NEUTS 56.9 43.0 - 75.0 % [facility] LYMPHS 25.0 18.2 - 47.4 % [facility] MONOS 12.6(H) 4.00 - 11.00 % [facility] EOS 3.8 0.0 - 8.0 % [facility] BASOS 1.5 0.0 - 2.0 % [facility] Granulocytes, immature (%) 0.2 0.0 - 0.9 % [facility] ABSOLUTE NEUTS 2.66 1.80 - 7.70 K/uL [facility] ABSOLUTE LYMPHS 1.17 1.00 - 3.10 K/uL [facility] ABSOLUTE MONOS 0.59 0.20 - 0.80 K/uL [facility] ABSOLUTE EOS 0.18 0.00 - 0.80 K/uL [facility] ABSOLUTE BASOS 0.07 0.00 - 0.09 K/uL [facility] Granulocytes, immature 0.01 0.00 - 0.05 K/uL [facility] Blood 08/02/2023 2:53 PM EST 08/02/2023 2:56 PM EST us Pazyanet Cohen Chase [facility] BLOOD ORDERABLES Final Result Performing Organization Address City/State/[facility] Co de Phone Number [facility] [address] [place] [address] documented in this encounter Visit Diagnoses Diagnosis Constipation, unspecified constipation type- Primary External hemorrhoids External hemorrhoids without mention of complication documented in this encounter Additional Health Concerns Assessment Noted Time PHQ-2 Depression Total Score: 0 12/23/19 23 9:02 AM EDT documented as of this encounter Care Teams Appeals Officer Relationship Specialty Start Date End Date Alonso Denney MD [address] [place] [address], [address] [place] [address] [email or web address] PCP - General 07/02/17 Alonso Denney MD [address] [place] [address], [address] [place] [address] [email or web address] Historical LMR Provider 07/08/17 Homa Richards MD [address] [place] [address] Orthopedics & Sports Medicine, [facility] [place] [address] [email or web address] Historical LMR Provider 07/08/17 documented as of this encounter Additional Source Comments The information contained in this document represents components of the legal health record. It is not the complete legal health record.[facility]
--- OUTSIDE RECORDS SUMMARY | 2025-07-16 09:47 | XMS_ITS | Encounter Summary ---
Author Organization [facility] Address [address] [place] [address] Phone Care Team Providers Care Marketing Coordinator Name Role Phone Alonso Denney MD Unavailable [phone] Alonso Denney MD Primary Care Provider + [phone] Homa Richards MD Unavailable [phone] Alonso Denney MD Unavailable [phone] Encounter Details Date Type Department Care Team (Late st Contact Info) Description 07/06/2023 Procedure Pass [facility], [address] [address] Social History Tobacco Use Types Packs/Day Years [...] high school, GED, job training, learning the [place] language, technical skills, or developing parenting skills)? [...] Info) Description 03/13/2025 Procedure Pass Echo Lab [address] [place] [address] 08/11/2025 3:00 PM EST Nurse Only [facility] [address] [place] [address] [place] [address] Alonso Denney MD [address] [facility], [address] [place] [address] 08/17/2025 2:45 PM EST Appointment Echo Lab [address] [place] [address] Ese Grier DNP [address] [facility], [address] [place] [address] 09/21/2025 10:30 AM EST Office Visit [facility] [address] [place] [address] 3rd Floor, [address] [place] [address] Star Goodman DO [address] [facility] [address] [place] [address] 01/05/2026 9:10 AM EDT Office Visit [facility] Rheumatology [address] [place] [address] [place] [address] Angle Rouse MD, MPH [address] [facility], [address] [place] [address] [email or web address] 06/25/2026 9:00 AM EDT Office Visit [facility] Medicine [address] [place] [address] [place] [address] Alonso Denney MD [address] [place] [address], [address] [place] [address] documented as of this encounter Visit Diagnoses Not on filedocumented in this encounter Additional Health Concerns Assessment Noted Time PHQ-2 Depression Total Score: 0 12/23/19 23 9:02 AM EDT documented as of this encounter Care Teams Marketing Coordinator Relationship Specialty Start Date End Date Alonso Denney MD [address] [place] [address], [address] [place] [address] PCP - General 07/02/17 Alonso Denney MD [address] [place] [address], [address] [place] [address] Historical LMR Provider 07/08/17 Homa Richards MD [address] [place] [address] [facility] [place] [address] [email or web address] Historical LMR Provider 07/08/17 Alonso Denney MD [address] [place] [address], [address] [place] [address] [email or web address] Insurance Assigned Provider 01/18/19 documented as of this encounter Additional Source Comments The information contained in this document represents components of the legal health record. It is not the complete legal health record.[facility]
--- OUTSIDE RECORDS SUMMARY | 2025-07-16 09:47 | XMS_ITS | Encounter Summary ---
Author Organization [facility] Address [address] [place] [address] Phone Care Team Providers Care Astrophysics Teacher Name Role Phone Alonso Denney MD Unavailable [phone] Alonso Denney MD Primary Care Provider + [phone] Homa Richards MD Unavailable [phone] Alonso Denney MD Unavailable [phone] Encounter Details Date Type Department Care Team (Late st Contact Info) Description 06/22/2022 Procedure Pass [facility], [address] [address] Social History Tobacco Use Types Packs/Day Years [...] high school, GED, job training, learning the Georgian language, technical skills, or developing parenting skills)? [...] Info) Description 03/13/2025 Procedure Pass Echo Lab [address] [place] [address] 08/11/2025 3:00 PM EST Nurse Only [facility] [address] [place] [address] [place] [address] Alonso Denney MD [address] [place] [address], [address] [place] [address] 08/17/2025 2:45 PM EST Appointment Echo Lab [address] [place] [address] Ese Grier DNP [address] [place] [address], [address] [place] [address] 09/21/2025 10:30 AM EST Office Visit [facility] [address] [place] [address] 3rd Floor, [address] [place] [address] Star Goodman DO [address] [place] [address] [place] [address] 01/05/2026 9:10 AM EDT Office Visit [facility] Rheumatology [address] [place] [address] [place] [address] Angle Rouse MD, MPH [address] [facility], [address] [place] [address] 06/25/2026 9:00 AM EDT Office Visit [address] [address] Alonso Denney MD [address] [place] [address], [address] [place] [address] documented as of this encounter Visit Diagnoses Not on filedocumented in this encounter Additional Health Concerns Infection Onset Date Last Indicated Resolved Time COVID-19 11/29/2022 11/29/2022 12/20/2022 1:21 AM EDT CoV-Risk Comment:Per Ambulatory Triage Form 11/30/2022 11/30/202211/30 8:26 AM EDT Assessment Noted Time PHQ-2 Depression Total Score: 1 12/22/19 22 9:30 AM EDT documented as of this encounter Care Teams Astrophysics Teacher Relationship Specialty Start Date End Date Alonso Denney MD [address] [place] [address], [address] [place] [address] PCP - General 07/02/17 Alonso Denney MD [address] [place] [address], [address] [place] [address] Historical LMR Provider 07/08/17 Homa Richards MD [address] [place] [address] Orthopedics & Sports Medicine, [facility] [address] Historical LMR Provider 07/08/17 Alonso Denney MD [address] [place] [address], [address] [place] [address] [email or web address] Insurance Assigned Provider 01/18/19 documented as of this encounter Additional Source Comments The information contained in this document represents components of the legal health record. It is not the complete legal health record.[facility]
--- OUTSIDE RECORDS SUMMARY | 2025-07-16 09:47 | XMS_ITS | Encounter Summary ---
Author Organization [facility] Address [address] [facility] [address] [place] [address] Phone Care Team Providers Care Manager Transplant Name Role Phone Alonso Denney MD Unavailable [phone] Fátima Cha MD Unavailable [phone] Alonso Denney MD Primary Care Provider + [phone] Josephine Beltran NP Unavailable [phone] Prudence Mishra MD Unavailable [phone] Jarrell Pretty MD Unavailable [phone] Homa Richards MD Unavailable [phone] Alonso Denney MD Unavailable [phone] Reason for Referral * MRI/CAT Scan - Closed Specialty Diagnoses / Procedures Referred By Contac t Referred To Contact Radiology Diagnoses Abnormal LFTs Epigastric abdominal pain Procedures MRI Abdomen Paz Stone CNP Phone: tel: fax: mailto: [address] [phone] Phone: tel: Referral ID Status Reason Start Date Expiration Date Visits Re quested Visits Authorized [id number] Closed 06/11/2020 07/11/2020 1 1 Encounter Details Date Type Department Care Team (Latest Contact Info) Description 06/04/2020 Transcribe Orders Virtual Department 30 [place] [address] Paz Stone, NIKOLAS 10 [place] [address] [email or web address] Abnormal LFTs (Primary Dx); Epigastric abdominal pain [...] Info) Description 03/13/2025 Procedure Pass Echo Lab [address] [place] [address] 08/11/2025 3:00 PM EST Nurse Only [facility] [place] [facility] [address] [place] [address] [place] [address] Alonso Denney MD [address] [place] [address], [address] [place] [address] 08/17/2025 2:45 PM EST Appointment Echo Lab [address] [place] [address] Ese Grier DNP [address] [place] [address], [address] [place] [address] 09/21/2025 10:30 AM EST Office Visit [facility] [address] [place] [address] 3rd Floor, [address] [place] [address] Star Goodman DO [address] [place] [address] [place] [address] 01/05/2026 9:10 AM EDT Office Visit [facility] Rheumatology [address] [place] [address] Angle Rouse MD, MPH 22 [facility], [address] [place] [address] 06/25/2026 9:00 AM EDT Office Visit [facility] [address] [place] [address] Alonso Denney MD [address] [facility], [address] [place] [address] [email or web address] documented as of this encounter Results * [...] duct dilation or choledocholithiasis. Paz Cohen Chase MIXING ENGINEER IMG MR ABDOMEN Final Resu lt documented [...] documented as of this encounter Care Teams Manager Transplant Relationship Specialty Start Date End Date Alonso Denney MD [address] [place] [address], [address] [place] [address] [email or web address] PCP - General 07/02/17 Alonso Denney MD [address] [place] [address], [address] [place] [address] [email or web address] Historical LMR Provider 07/08/17 Fátima Cha MD [address] [place] [address], [address] [place] [address] Historical LMR Provider 07/08/17 09/24/21 Josephine Beltran NP [address] [place] [address] [address] [place] [address] Historical LMR Provider 07/08/17 2 Prudence Mishra MD [address] [place] [address] Historical LMR Provider 07/08/17 Jarrell Pretty MD [address] [place] [address] Historical LMR Provider 07/08/17 09/24/21 Homa Richards MD [address] [place] [address] Orth[facility] Medicine, [place] [address] Historical LMR Provider 07/08/17 Alonso Denney MD [address] [place] [address], [address] [place] [address] Insurance Assigned Provider 01/18/19 documented as of this encounter Additional Source Comments The information contained in this document represents components of the legal health record. It is not the complete legal health record.[facility]
--- OUTSIDE RECORDS SUMMARY | 2025-07-16 09:47 | XMS_ITS | Encounter Summary ---
Author Organization [facility] Address [address] [place] [address] Phone Care Team Providers Care Content Production Specialist Name Role Phone Alonso Denney MD Unavailable [phone] Alonso Denney MD Primary Care Provider + [phone] Homa Richards MD Unavailable [phone] Encounter Details Date Type Department Care Team (Late st Contact Info) Description 06/22/2025 Procedure Pass [facility], Ct Scan - [facility] [address] [place] [address] Social History Tobacco Use Types Packs/Day Years [...] Description 03/13/2025 Procedure Pass Echo Lab [address] [place] [address] 08/11/2025 3:00 PM EST Nurse Only [facility] [address] [place] [address] [place] [address] Alonso Denney MD [address] [place] [address], [address] [place] [address] 08/17/2025 2:45 PM EST Appointment Echo Lab [address] [place] [address] Ese Grier DNP 22 [facility], [address] [place] [address] 09/21/2025 10:30 AM EST Office Visit [facility] [address] [place] [address] 3rd Floor, [address] [place] [address] Star Goodman DO [address] [place] [address] [address] [place] [address] 01/05/2026 9:10 AM EDT Office Visit [facility] Rheumatology [address] [place] [address] [place] [address] Angle Rouse MD, MPH [address] [place] [address], [address] [place] [address] 06/25/2026 9:00 AM EDT Office Visit [facility] [address] [place] [address] [place] [address] Alonso Denney MD [address] [place] [address], [address] [place] [address] documented as of this encounter Visit Diagnoses Not on filedocumented in this encounter Additional Health Concerns Assessment Noted Time PHQ-2 Depression Total Score: 0 06/22/20 25 11:03 AM EDT documented as of this encounter Care Teams Content Production Specialist Relationship Specialty Start Date End Date Alonso Denney MD [address] [place] [address], [address] [place] [address] [email or web address] PCP - General 07/02/17 Alonso Denney MD [address] [place] [address], [address] [place] [address] [email or web address] Historical LMR Provider 07/08/17 Homa Richards MD [address] [place] [address] Orth[facility]ics [facility] Sports Medicine, [place] [address] [email or web address] Historical LMR Provider 07/08/17 documented as of this encounter Additional Source Comments The information contained in this document represents components of the legal health record. It is not the complete legal health record.[facility]
--- OUTSIDE RECORDS SUMMARY | 2025-07-16 09:47 | XMS_ITS | Encounter Summary ---
Author Organization [facility] Address [address] [place] [address] [place] [address] Phone Care Team Providers Care Timber Treatment Plant Operator Name Role Phone Alonso Denney MD Unavailable [phone] Fátima Cha MD Unavailable [phone] Alonso Denney MD Primary Care Provider [phone] Josephine Beltran NP Unavailable [phone] Prudence Mishra MD Unavailable [phone] Jarrell Pretty MD Unavailable [phone] Homa Richards MD Unavailable [phone] Alonso Denney MD Unavailable [phone] Encounter Details Date Type Department Care Team (Late st Contact Info) Description 07/16/2017 Ancillary Orders [facility] [address] [place] [address] Fátima Cha MD [address] [facility], [address] [place] [address] Visit for screening mammogram Social History Tobacco [...] Description 03/13/2025 Procedure Pass [facility] [address] [place] [address] 08/11/2025 3:00 PM EST Nurse Only [address] [place] [address] Alonso Denney MD [address] [place] [address], [address] [place] [address] 08/17/2025 2:45 PM EST Appointment Echo Lab [address] [place] [address] Ese Grier DNP [address] [place] [address], [address] [place] [address] 09/21/2025 10:30 AM EST Office Visit [facility] [address] [place] [address] 3rd Floor, [address] [place] [address] Star Goodman DO [address] [place] [address] [place] [address] 01/05/2026 9:10 AM EDT Office Visit [facility] Rheumatology [address] [place] [address] [place] [address] Angle Rouse MD, MPH [address] [place] [address], [address] [place] [address] 06/25/2026 9:00 AM EDT Office Visit [address] [place] [address] Alonso Denney MD [address] [place] [address], [address] [place] [address] documented as of this encounter Results * BI MAMMOGRAM SCREENING WITH TOMOSYNTHESIS WITH CAD (BILATERAL) (08/27/2017 2:59 PM EST) Anatomical Region Laterality Modality Breast Left, Breast Right, Breast Bilateral Bila teral Mammography 08/28/2017 8:27 AM EST Impressions 08/28/2017 8:29 AM EST Normal negative. Annual screening is recommended. Patient notified by letter. BI-RADS CATEGORY: 1 - Negative. DENSITY: There are scattered fibroglandular densities. POS: [id number] Narrative 08/28/2017 8:29 AM EST Screening Mammogram, [...] DENSITY: There are scattered fibroglandular densities. POS: [id number] Fátima Cha MD IMG MG EXAMS Final Resu lt documented in this encounter Visit Diagnoses Diagnosis Visit for screening mammogram Visit for screening mammogram documented in this encounter Additional Health Concerns Infection Onset Date Last Indicated Resolved Time COVID-19 11/29/2022 11/29/2022 12/20/2022 1:21 AM EDT CoV-Risk Comment:Per Ambulatory Triage Form 11/30/2022 11/30/202211/30 8:26 AM EDT documented as of this encounter Care Teams Timber Treatment Plant Operator Relationship Specialty Start Date End Date Alonso Denney MD [address] [place] [address], [address] [place] [address] PCP - General 07/02/17 Alonso Denney MD [address] [place] [address], [address] [place] [address] Historical LMR Provider 07/08/17 Fátima Cha MD [address] [place] [address], [facility] [address] [place] [address] Historical LMR Provider 07/08/17 09/24/21 Josephine Beltran NP [address] [place] [address] Historical LMR Provider 07/08/17 2 Prudence Mishra MD [address] [facility], 2nd [place] [address] Historical LMR Provider 07/08/17 Jarrell Pretty MD 22 [facility], [address] [place] [address] Historical LMR Provider 07/08/17 09/24/21 Homa Richards MD [address] [place] [address] [facility], [place] [address] Historical LMR Provider 07/08/17 Alonso Denney MD [address] [place] [address], [address] [place] [address] Insurance Assigned Provider 01/18/19 documented as of this encounter Additional Source Comments The information contained in this document represents components of the legal health record. It is not the complete legal health record.[facility]
--- OUTSIDE RECORDS SUMMARY | 2025-07-16 09:47 | XMS_ITS | Encounter Summary ---
Author Organization [facility] Address [address] [place] [address] Phone Care Team Providers Care Community Health Specialist Name Role Phone Alonso Denney MD Unavailable [phone] Alonso Denney MD Primary Care Provider + [phone] Homa Richards MD Unavailable [phone] Encounter Details Date Type Department Care Team (Late st Contact Info) Description 06/24/2024 Procedure Pass [facility], Ct Scan - [facility] [address] [place] [address] Social History Tobacco Use Types Packs/Day Years [...] high school, GED, job training, learning the Maltese language, technical skills, or developing parenting skills)? [...] Description 03/13/2025 Procedure Pass Echo Lab [address] [place] [address] 08/11/2025 3:00 PM EST Nurse Only [facility] Medicine [address] [place] [address] [place] [address] Alonso Denney MD [address] [facility], [address] [place] [address] 08/17/2025 2:45 PM EST Appointment Echo Lab [address] [place] [address] Ese Grier DNP [address] [facility], [address] [place] [address] 09/21/2025 10:30 AM EST Office Visit [facility] [address] [place] [address] 3rd Floor, [address] [place] [address] Star Goodman DO [address] [facility] [address] [place] [address] 01/05/2026 9:10 AM EDT Office Visit [facility] Rheumatology [address] [place] [address] [place] [address] Angle Rouse MD, MPH [address] [place] [address], [address] [place] [address] 06/25/2026 9:00 AM EDT Office Visit [facility] Family Medicine [address] [place] [address] [place] [address] Alonso Denney MD [address] [place] [address], [address] [place] [address] documented as of this encounter Visit Diagnoses Not on filedocumented in this encounter Additional Health Concerns Assessment Noted Time PHQ-2 Depression Total Score: 0 06/18/20 24 1:39 PM EDT documented as of this encounter Care Teams Community Health Specialist Relationship Specialty Start Date End Date Alonso Denney MD [address] [place] [address], [address] [place] [address] [email or web address] PCP - General 07/02/17 Alonso Denney MD [address] [place] [address], [address] [place] [address] Historical LMR Provider 07/08/17 Homa Richards MD [address] [place] [address] [facility], [place] [address] [email or web address] Historical LMR Provider 07/08/17 documented as of this encounter Additional Source Comments The information contained in this document represents components of the legal health record. It is not the complete legal health record.[facility]
--- OUTSIDE RECORDS SUMMARY | 2025-07-16 09:47 | XMS_ITS | Encounter Summary ---
Author Organization [facility] Address [address] [facility] [address] [place] [address] Phone Care Team Providers Care Uat Tester Name Role Phone Alonso Denney MD Unavailable [phone] Fátima Cha MD Unavailable [phone] Alonso Denney MD Primary Care Provider + [phone] Josephine Beltran NP Unavailable [phone] Prudence Mishra MD Unavailable [phone] Jarrell Pretty MD Unavailable [phone] Homa Richards MD Unavailable [phone] Alonso Denney MD Unavailable [phone] Encounter Details Date Type Department Care Team (Latest Contact Info) Description 07/09/2020 Ancillary Orders [facility] Medicine [address] [place] [address] [place] [address] Alonso Denney MD 22 [facility], [address] [place] [address] [email or web address] Breast cancer screening by mammogram Social History Tobacco Use Types Packs/Day [...] Info) Description 03/13/2025 Procedure Pass Echo Lab [address] [place] [address] 08/11/2025 3:00 PM EST Nurse Only [address] [place] [address] Alonso Denney MD [address] [place] [address], [address] [place] [address] 08/17/2025 2:45 PM EST Appointment Echo Lab [address] [place] [address] Ese Grier DNP [address] [place] [address], [address] [place] [address] 09/21/2025 10:30 AM EST Office Visit [facility] [address] [place] [address] Dr 3rd Floor, [address] [place] [address] Star Goodman DO [address] [place] [address] [place] [address] 01/05/2026 9:10 AM EDT Office Visit [facility] Rheumatology [address] [place] [address] [place] [address] Angle Rouse MD, MPH [address] [place] [address], [address] [place] [address] 06/25/2026 9:00 AM EDT Office Visit [address] [place] [address] Alonso Denney MD [address] [place] [address], [address] [place] [address] [email or web address] documented as of this encounter Results * BI MAMMOGRAM SCREENING WITH TOMOSYNTHESIS WITH CAD (BILATERAL) (10/01/2020 11:29 AM EST) Anatomical Region Laterality Modality Breast Left, Breast Right, Breast Bilateral Bila teral Mammography 10/01/2020 1:51 PM EST Impressions 10/01/2020 1:54 PM EST No mammographic change indicative of malignancy. Annual screening is recommended. BI-RADS CATEGORY: 1 - Negative. DENSITY: The breast tissue is heterogeneously dense, which could obscure a lesion on mammography. Narrative 10/01/2020 1:54 PM EST Bilateral full-field digital screening mammography is obtained and read in conjunction with computer-aided detection. Tomosynthesis as well as 2-D C view imaging of both breasts in two planes also obtained. Comparison made to multiple prior, most recent September 29, 2019, and most remote September 09, 2014. No dominant mass, architectural distortion, worrisome asymmetry, or suspicious calcification is identified. No skin or nipple finding of concern is appreciated. Procedure Note Star Matos MD - 10/01/2020 Bilateral full-field digital screening mammography is obtained and read inconjunction with computer-aided detection. Tomosynthesis as well as 2-D Cview imaging of both breasts in two planes also obtained. Comparison madeto multiple prior, most recent September 29, 2019, and most remote 2013. No dominant mass, architectural distortion, worrisome asymmetry, orsuspicious calcification is identified. No skin or nipple finding ofconcern is appreciated. IMPRESSION: No mammographic change indicative of malignancy. Annual screening isrecommended. BI-RADS CATEGORY: 1 - Negative. DENSITY: The breast tissue is heterogeneously dense, which could obscurea lesion on mammography. Alonso Denney MD IMG MG EXAMS Final Resu lt documented in this encounter Visit Diagnoses Diagnosis Breast cancer screening by mammogram Breast cancer screening by mammogram documented in this encounter Additional Health Concerns Infection Onset Date Last Indicated Resolved Time COVID-19 11/29/2022 11/29/2022 12/20/2022 1:21 AM EDT CoV-Risk Comment:Per Ambulatory Triage Form 11/30/2022 11/30/202211/30 8:26 AM EDT Assessment Noted Time PHQ-2 Depression Total Score: 0 01/23/20 20 11:47 AM EDT documented as of this encounter Care Teams Uat Tester Relationship Specialty Start Date End Date Alonso Denney MD [address] [place] [address], [address] [address] PCP - General 07/02/17 Alonso Denney MD [address] [place] [address], [address] [address] Historical LMR Provider 07/08/17 Fátima Cha MD [address] [place] [address], [address] [address] Historical LMR Provider 07/08/17 09/24/21 Josephine Beltran NP [address] [place] [address] Historical LMR Provider 07/08/17 2 Prudence Mishra MD [address] [place] [address], 2nd [place] [address] Historical LMR Provider 07/08/17 Jarrell Pretty MD 22 [facility], 2nd [place] [address] Historical LMR Provider 07/08/17 09/24/21 Homa Richards MD [address] [place] [address] [facility], [place] [address] Historical LMR Provider 07/08/17 Alonso Denney MD 22 [facility], [address] [place] [address] [email or web address] Insurance Assigned Provider 01/18/19 documented as of this encounter Additional Source Comments The information contained in this document represents components of the legal health record. It is not the complete legal health record.[facility]
--- OUTSIDE RECORDS SUMMARY | 2025-07-16 09:47 | XMS_ITS | Encounter Summary ---
Author Organization [facility] Address [address] [place] [address] [place] [address] Phone Care Team Providers Care Contingents Supervisor Name Role Phone Alonso Denney MD Unavailable [phone] Fátima Cha MD Unavailable [phone] Alonso Denney MD Primary Care Provider [phone] Josephine Beltran NP Unavailable [phone] Prudence Mishra MD Unavailable [phone] Jarrell Pretty MD Unavailable [phone] Homa Richards MD Unavailable [phone] Alonso Denney MD Unavailable [phone] Encounter Details Date Type Department Care Team (Latest Contact Info) Description 05/25/2020 Transcribe Orders [facility] Laboratory [address] [place] [id number] Paz Stone, CENTRAL OFFICE OPERATOR SUPERVISOR [address] [place] [address] Abdominal pain, epigastric (Primary Dx); Nonspecific abnormal [...] Info) Description 03/13/2025 Procedure Pass Echo Lab [address] [place] [address] 08/11/2025 3:00 PM EST Nurse Only [address] [place] [address] Alonso Denney MD [address] [place] [address], [address] [place] [address] 08/17/2025 2:45 PM EST Appointment Echo Lab [address] [place] [address] Ese Grier DNP [address] [place] [address], [address] [place] [address] 09/21/2025 10:30 AM EST Office Visit [facility] [address] [place] [address] 3rd Floor, [address] [place] [address] Star Goodman DO [address] [place] [address] [place] [address] 01/05/2026 9:10 AM EDT Office Visit [facility] Rheumatology [address] [place] [address] [place] [address] Angle Rouse MD, MPH [address] [place] [address], [address] [place] [address] 06/25/2026 9:00 AM EDT Office Visit [address] [place] [address] Alonso Denney MD [address] [place] [address], [address] [place] [address] documented as of this encounter Results * Lipase (05/25/2020 4:05 PM EDT) Pathologist [facility] LIPASE 25 16 - 63 U/L [facility] Blood 05/25/2020 4:05 PM EDT 05/25/2020 4:11 PM EDT Paz Stone CNP LAB BLOOD ORDERABLES Final Result [facility] [address] [place] [address] * IgG subclasses (05/25/2020 3:53 PM EDT) Pathologist [facility] IGG 1 501 341 - 894 mg/dL [facility]PATH [address] IGG 2 350 171 - 632 mg/dl [facility]PATH [address] DR IGG 3 81.1 18.4 - 106.0 mg/dl [facility]PATH [address] DR IGG 4 101.0 2.4 - 121.0 mg/dl [facility]PATH [address] DR TOTAL IGG 1,040 767 - 1,590 mg/dl [facility] MED/PATH [address] Blood 05/25/2020 3:53 PM EDT 05/25/2020 4:02 PM EDT Paz Stone CNP LAB BLOOD ORDERABLES Final Result [facility] LAB MED/PATH [address] [place] [address] * C-Reactive Protein (05/25/2020 3:53 PM EDT) Pathologist [facility] C REACTIVE PROTEIN <0.3 0.0 - 4.0 mg/L [facility] Blood 05/25/2020 3:53 PM EDT 05/25/2020 4:01 PM EDT Paz Stone [facility] LAB BLOOD ORDERABLES Final Result [address] [address] * Comprehensive metabolic panel (05/25/2020 3:53 PM EDT) SODIUM 139 133 - 146 mmol/L [facility] POTASSIUM 3.9 3.3 - 5.1 mmol/L [facility] CHLORIDE 101 96 - 108 mmol/L [facility] CO2 29 21 - 35 mmol/L [facility] BUN 11 6 - 19 mg/dL [facility] CREATININE 0.60 0.5 - 1.5 mg/dL [facility] GLUCOSE 99 70 - 99 mg/dL [facility] ALBUMIN 4.5 3.9 - 4.8 g/dL [facility] TOTAL PROTEIN 7.3 6.5 - 8.0 g/dL [facility] CALCIUM 9.8 8.4 - 10.3 mg/dL [facility] ALKALINE PHOSPHATASE 107 39 - 117 U/L [facility] TOTAL BILIRUBIN 0.5 0.0 - 1.2 mg/dL [facility] AST 19 0 - 37 U/L [facility] ALT 12 0 - 40 U/L [facility] GLOBULIN 2.8 1 - 4.8 g/dL [facility] EGFR 98 >59 mL/min/1.7 3m2 [facility] Comment:Estimated glomerular filtration rate calculated using the CKD-EPI equation. ANION GAP 13 10 - 20 mmol/L [facility] Blood 05/25/2020 3:53 PM EDT 05/25/2020 4:01 PM EDT Paz Stone [facility] LAB BLOOD ORDERABLES Final Result [address] [address] * CBC and differential (05/25/2020 3:53 PM EDT) WBC 4.70 4.00 - 11.00 K/uL [facility] Comment:Note Reference Range updates to all CBC and Differential results. RBC 4.32 3.72 - 5.30 M/uL [facility] HGB 14.0 11.4 - 15.9 g/dL [facility] Comment:Note updated Referen ce Ranges for all CBC and Differential results. HCT 40.1 34.2 - 46.8 % [facility] PLT 265 140 - 430 K/uL [facility] MCV 92.8 78.0 - 97.0 fL [facility] MCH 32.4 25.0 - 33.0 pg [facility] MCHC 34.9 32.0 - 36.0 g/dL [facility] RDW 12.1 11.0 - 16.0 % [facility] MPV 9.8 8.4 - 12.8 fl [facility] NRBC 0.00 0 /100 WBCs [facility] ABSOLUTE NRBC 0.00 0 K/uL [facility] DIFF METHOD Auto [facility] NEUTS 50.4 43.0 - 75.0 % [facility] LYMPHS 35.3 18.2 - 47.4 % [facility] MONOS 10.9 4.00 - 11.00 % [facility] EOS 1.9 0.0 - 8.0 % [facility] BASOS 1.3 0.0 - 2.0 % [facility] Granulocytes, immature (%) 0.2 0.0 - 0.9 % [facility] ABSOLUTE NEUTS 2.37 1.80 - 7.70 K/uL [facility] ABSOLUTE LYMPHS 1.66 1.00 - 3.10 K/uL [facility] ABSOLUTE MONOS 0.51 0.20 - 0.80 K/uL [facility] ABSOLUTE EOS 0.09 0.00 - 0.80 K/uL [facility] ABSOLUTE BASOS 0.06 0.00 - 0.09 K/uL [facility] Granulocytes, immature 0.01 0.00 - 0.05 K/uL [facility] Blood 05/25/2020 3:53 PM EDT 05/25/2020 4:01 PM EDT us Paz Stone [facility] LAB BLOOD ORDERABLES Final Result [address] [address] documented in this encounter Visit Diagnoses Diagnosis [...] documented as of this encounter Care Teams Contingents Supervisor Relationship Specialty Start Date End Date Alonso Denney MD [address] [place] [address] PCP - General 07/02/17 Alonso Denney MD [address] [place] [address] Historical LMR Provider 07/08/17 Fátima Cha MD [address] [place] [address], [address] [address] Historical LMR Provider 07/08/17 09/24/21 Josephine Beltran NP [address] [place] [address] [address] [place] [address] Historical LMR Provider 07/08/17 2 Prudence Mishra MD [address] [place] [address], 2nd [place] [address] Historical LMR Provider 07/08/17 Jarrell Pretty MD [address] [facility], 2nd [place] [address] Historical LMR Provider 07/08/17 09/24/21 Homa Richards MD [address] [place] [address] Orth[facility] Medicine, [place] [address] Historical LMR Provider 07/08/17 Alonso Denney MD [address] [place] [address], [address] [place] [address] [email or web address] Insurance Assigned Provider 01/18/19 documented as of this encounter Additional Source Comments The information contained in this document represents components of the legal health record. It is not the complete legal health record.[facility]
--- OUTSIDE RECORDS SUMMARY | 2025-07-16 09:47 | XMS_ITS | Encounter Summary ---
Author Organization [facility] Address [address] [place] [address] [place] [address] Phone Care Team Providers Care Cash Surrender Calculator Name Role Phone Alonso Denney MD Unavailable [phone] Fátima Cha MD Unavailable [phone] Alonso Denney MD Primary Care Provider + [phone] Josephine Beltran NP Unavailable [phone] Prudence Mishra MD Unavailable [phone] Jarerll Pretty MD Unavailable [phone] Homa Richards MD Unavailable [phone] Alonso Denney MD Unavailable [phone] Encounter Details Date Type Department Care Team (Late st Contact Info) Description 07/29/2020 Transcribe Orders [facility] [address] [place] [address] Alonso Denney MD 22 [facility], [address] [place] [address] Social History Tobacco Use Types Packs/Day Years [...] Description 03/13/2025 Procedure Pass Echo Lab [address] [place] [address] 08/11/2025 3:00 PM EST Nurse Only [address] [place] [address] Alonso Denney MD [address] [place] [address], [address] [place] [address] 08/17/2025 2:45 PM EST Appointment Echo Lab [address] [place] [address] Ese Grier DNP [address] [place] [address], [address] [place] [address] 09/21/2025 10:30 AM EST Office Visit [facility] [address] [place] [address] 3rd Floor, [address] [place] [address] Star Goodman DO [address] [place] [address] [place] [address] 01/05/2026 9:10 AM EDT Office Visit [facility] Rheumatology [address] [place] [address] [place] [address] Angle Rouse MD, MPH [address] [place] [address], [address] [place] [address] 06/25/2026 9:00 AM EDT Office Visit [address] [place] [address] Alonso Denney MD [address] [place] [address], [address] [place] [address] documented as of this encounter Visit Diagnoses Not on filedocumented in this encounter Additional Health Concerns Infection Onset Date Last Indicated Resolved Time COVID-19 11/29/2022 11/29/2022 12/20/2022 1:21 AM EDT CoV-Risk Comment:Per Ambulatory Triage Form 11/30/2022 11/30/202211/30 8:26 AM EDT Assessment Noted Time PHQ-2 Depression Total Score: 0 01/23/20 11:47 AM EDT documented as of this encounter Care Teams Cash Surrender Calculator Relationship Specialty Start Date End Date Alonso Denney MD [address] [place] [address], [address] [place] [address] PCP - General 07/02/17 Alonso Denney MD [address] [place] [address], [address] [place] [address] Historical LMR Provider 07/08/17 Fátima Cha MD [address] [place] [address], [facility] [address] [place] [address] [email or web address] Historical LMR Provider 07/08/17 09/24/21 Josephine Beltran NP [address] [place] [address] Historical LMR Provider 07/08/17 2 Prudence Mishra MD [address] [place] [address], 2nd [place] [address] Historical LMR Provider 07/08/17 Jarrell Pretty MD [address] [place] [address], 2nd [place] [address] Historical LMR Provider 07/08/17 09/24/21 Homa Richards MD [address] [place] [address] [facility], [place] [address] Historical LMR Provider 07/08/17 Alonso Denney MD [address] [place] [address], [address] [place] [address] [email or web address] Insurance Assigned Provider 01/18/19 documented as of this encounter Additional Source Comments The information contained in this document represents components of the legal health record. It is not the complete legal health record.[facility]
--- OUTSIDE RECORDS SUMMARY | 2025-07-16 09:47 | XMS_ITS | Encounter Summary ---
Author Organization [facility] Address [address] [facility] [address] [place] [address] Phone Care Team Providers Care Shoemaking Finisher Name Role Phone Alonso Denney MD Unavailable [phone] Alonso Denney MD Primary Care Provider + [phone] Homa Richards MD Unavailable [phone] Alonso Denney MD Unavailable [phone] Encounter Details Date Type Department Care Team (Latest Contact Info) Description 07/06/2023 Transcribe Orders Virtual Department 30 [place], [place] [address] Alonso Denney MD 22 [facility], [address] [place] [address] [email or web address] Breast screening (Primary Dx) Social History [...] high school, GED, job training, learning the Dominican language, technical skills, or developing parenting skills)? [...] Info) Description 03/13/2025 Procedure Pass Echo Lab [address] [place] [address] 08/11/2025 3:00 PM EST Nurse Only [facility] [address] [place] [address] [place] [address] Alonso Denney MD 22 [facility], [address] [place] [address] 08/17/2025 2:45 PM EST Appointment Echo Lab [address] [place] [address] Ese Grier DNP 22 [facility], [address] [place] [address] 09/21/2025 10:30 AM EST Office Visit [facility] [address] [place] [address] Dr 3rd Floor, [address] [place] [address] Satr Goodman DO 22 [facility] [address] [place] [address] 01/05/2026 9:10 AM EDT Office Visit [facility] Rheumat[facility] [address] [place] [address] Angle Rouse MD, MPH [address] [facility], [address] [place] [address] 06/25/2026 9:00 AM EDT Office Visit [facility] [address] [place] [address] [place] [address] Alonso Denney MD [address] [place] [address], [address] [place] [address] [email or web address] documented as of this encounter Results * [...] documented as of this encounter Care Teams Shoemaking Finisher Relationship Specialty Start Date End Date Alonso Denney MD [address] [place] [address], [address] [place] [address] PCP - General 07/02/17 Alonso Denney MD [address] [place] [address], [address] [place] [address] Historical LMR Provider 07/08/17 Homa Richards MD [address] [place] [address] [facility] [place] [address] [email or web address] Historical LMR Provider 07/08/17 Alonso Denney MD [address] [place] [address], [address] [place] [address] [email or web address] Insurance Assigned Provider 01/18/19 documented as of this encounter Additional Source Comments The information contained in this document represents components of the legal health record. It is not the complete legal health record.[facility]
--- OUTSIDE RECORDS SUMMARY | 2025-07-16 09:48 | XMS_ITS | Encounter Summary ---
Author Organization [facility] Address [address] [facility] [address] [place] [address] Phone Care Team Providers Care Cementer Machine Joiner Name Role Phone Alonso Denney MD Unavailable [phone] Alonso Denney MD Primary Care Provider + [phone] Homa Richards MD Unavailable [phone] Encounter Details Date Type Department Care Team (Late st Contact Info) Description 07/15/2025 Orders Only [facility] [address] [place] [address] Ernestine Diaz RN 30 [place] [address] [email or web address] Social History Tobacco Use Types Packs/Day Years [...] Info) Description 03/13/2025 Procedure Pass Echo [facility] [address] [place] [address] 08/11/2025 3:00 PM EST Nurse Only [address] [place] [address] Alonso Denney MD [address] [place] [address], [address] [place] [address] 08/17/2025 2:45 PM EST Appointment Echo Lab [address] [place] [address] Ese Grier DNP [address] [place] [address], [address] [place] [address] 09/21/2025 10:30 AM EST Office Visit [facility] [address] [place] [address] Dr 3rd Floor, [address] [place] [address] Star Goodman DO [address] [place] [address] [address] [place] [address] 01/05/2026 9:10 AM EDT Office Visit [facility] Rheumatology [address] [place] [address] [place] [address] Angle Rouse MD, MPH [address] [place] [address], [address] [place] [address] 06/25/2026 9:00 AM EDT Office Visit [address] [place] [address] Alonso Denney MD [address] [place] [address], [address] [place] [address] documented as of this encounter Visit Diagnoses Not on filedocumented in this encounter Additional Health Concerns Assessment Noted Time PHQ-2 Depression Total Score: 0 06/22/20 25 11:03 AM EDT documented as of this encounter Care Teams Cementer Machine Joiner Relationship Specialty Start Date End Date Alonso Denney MD [address] [place] [address], [address] [place] [address] PCP - General 07/02/17 Alonso Denney MD [address] [place] [address], [address] [place] [address] Historical LMR Provider 07/08/17 Homa Richards MD [address] [address] [facility], [place], [place] [id number] Historical LMR Provider 07/08/17 documented as of this encounter Additional Source Comments The information contained in this document represents components of the legal health record. It is not the complete legal health record.[facility]
--- OUTSIDE RECORDS SUMMARY | 2025-07-16 09:48 | XMS_ITS | Encounter Summary ---
Author Organization [facility] Address [address] [place] [address] [place] [address] Phone Care Team Providers Care Cornice Upholsterer Name Role Phone Alonso Denney MD Unavailable [phone] Fátima Cha MD Unavailable [phone] Alonso Denney MD Primary Care Provider [phone] Josephine Beltran NP Unavailable [phone] Prudence Mishra MD Unavailable [phone] Jarrell Pretty MD Unavailable [phone] Homa Richards MD Unavailable [phone] Alonso Denney MD Unavailable [phone] Encounter Details Date Type Department Care Team (Late st Contact Info) Description 07/09/2020 Procedure Pass [facility], [address] [address] Social History Tobacco Use Types Packs/Day Years [...] Description 03/13/2025 Procedure Pass Echo Lab [address] [place] [address] 08/11/2025 3:00 PM EST Nurse Only [address] [place] [address] Alonso Denney MD [address] [place] [address], [address] [place] [address] 08/17/2025 2:45 PM EST Appointment Echo Lab [address] [place] [address] Ese Grier DNP [address] [place] [address], [address] [place] [address] 09/21/2025 10:30 AM EST Office Visit [facility] [address] [place] [address] Dr 3rd Floor, [address] [place] [address] Star Goodman DO [address] [place] [address] [place] [address] 01/05/2026 9:10 AM EDT Office Visit [facility] Rheumatology [address] [place] [address] [place] [address] Angle Rouse MD, MPH [address] [place] [address], [address] [place] [address] 06/25/2026 9:00 AM EDT Office Visit [address] [place] [address] Alonso Denney MD [address] [place] [address], [address] [place] [address] documented as of this encounter Visit Diagnoses Not on filedocumented in this encounter Additional Health Concerns Infection Onset Date Last Indicated Resolved Time COVID-19 11/29/2022 11/29/2022 12/20/2022 1:21 AM EDT CoV-Risk Comment:Per Ambulatory Triage Form 11/30/2022 11/30/202211/30 8:26 AM EDT Assessment Noted Time PHQ-2 Depression Total Score: 0 01/23/20 20 11:47 AM EDT documented as of this encounter Care Teams Cornice Upholsterer Relationship Specialty Start Date End Date Alonso Denney MD [address] [place] [address], [address] [place] [address] PCP - General 07/02/17 Alonso Denney MD [address] [place] [address], [address] [place] [address] Historical LMR Provider 07/08/17 Fátima Cha MD [address] [place] [address] Historical LMR Provider 07/08/17 09/24/21 Josephine Beltran NP [address] [place] [address] Historical LMR Provider 07/08/17 2 Prudence Mishra MD [address] [place] [address] Historical LMR Provider 07/08/17 Jarrell Pretty MD [address] [place] [address] Historical LMR Provider 07/08/17 09/24/21 Homa Richards MD [address] [place] [address] [facility], [place] [address] Historical LMR Provider 07/08/17 Alonso Denney MD [address] [place] [address], [address] [place] [address] [email or web address] Insurance Assigned Provider 01/18/19 documented as of this encounter Additional Source Comments The information contained in this document represents components of the legal health record. It is not the complete legal health record.[facility]
--- OUTSIDE RECORDS SUMMARY | 2025-07-16 09:48 | XMS_ITS | Encounter Summary ---
Author Organization [facility] Address [address] [place] [address] Phone Care Team Providers Care Gray Tender Name Role Phone Alonso Denney MD Unavailable [phone] Alonso Denney MD Primary Care Provider + [phone] Homa Richards MD Unavailable [phone] Encounter Details Date Type Department Care Team (Late st Contact Info) Description 10/21/2024 Procedure Pass [facility] Admitting Dept Virtual Department 30 [place] [address] Social History Tobacco Use Types Packs/Day Years [...] high school, GED, job training, learning the Emirati language, technical skills, or developing parenting skills)? [...] Info) Description 03/13/2025 Procedure Pass Echo Lab [address] [place] [address] 08/11/2025 3:00 PM EST Nurse Only [facility] [address] [place] [address] [place] [address] Alonso Denney MD [address] [place] [address], [address] [place] [address] 08/17/2025 2:45 PM EST Appointment Echo Lab [address] [place] [address] Ese Grier DNP 22 [facility], [address] [place] [address] 09/21/2025 10:30 AM EST Office Visit [facility] [address] [place] [address] Dr 3rd Floor, [address] [place] [address] Star Goodman DO 22 [facility] [address] [place] [address] 01/05/2026 9:10 AM EDT Office Visit [facility] Rheumatology [address] [place] [address] [place] [address] Angle Rouse MD, MPH [address] [place] [address], [address] [place] [address] 06/25/2026 9:00 AM EDT Office Visit [facility] [address] [place] [address] [place] [address] Alonso Denney MD [address] [place] [address], [address] [place] [address] documented as of this encounter Visit Diagnoses Not on filedocumented in this encounter Additional Health Concerns Assessment Noted Time PHQ-2 Depression Total Score: 0 06/18/20 24 1:39 PM EDT documented as of this encounter Care Teams Gray Tender Relationship Specialty Start Date End Date Alonso Denney MD [address] [place] [address], [address] [place] [address] PCP - General 07/02/17 Alonso Denney MD [address] [place] [address], [address] [place] [address] Historical LMR Provider 07/08/17 Homa Richards MD [address] [place] [address] [facility], [place] [address] [email or web address] Historical LMR Provider 07/08/17 documented as of this encounter Additional Source Comments The information contained in this document represents components of the legal health record. It is not the complete legal health record.[facility]
--- OUTSIDE RECORDS SUMMARY | 2025-07-16 09:48 | XMS_ITS | Encounter Summary ---
Author Organization [facility] Address [address] [facility] [address] [place] [address] Phone Care Team Providers Care Tube Splicer Name Role Phone Alonso Denney MD Unavailable [phone] Alonso Denney MD Primary Care Provider + [phone] Homa Richards MD Unavailable [phone] Reason for Visit * Reason Onset Date Comments new pt apt 07/15/2025 Encounter Details Date Type Department Care Team (Late st Contact Info) Description 07/15/2025 Telephone [facility] at [address] [address] Unknown, Unknown, new pt apt Social History Tobacco Use Types Packs/Day Years [...] as of this encounter Progress Notes * Fatmata Briceño - 07/15/2025 9:30 AM EDT Pt called in questioning her new pt apt w/ADS She states that she just needs a BRACA test w/genetics Spoke w/[facility] who will confirm with referring provider and call the pt back. Pt thanks me for my time documented in this encounter Plan of Treatment Upcoming Encounters Date Type Department Care Team (Late st Contact Info) Description 03/13/2025 Procedure Pass Echo Lab [address] [place] [address] 08/11/2025 3:00 PM EST Nurse Only [address] [place] [address] Alonso Denney MD [address] [place] [address], [address] [place] [address] 08/17/2025 2:45 PM EST Appointment Echo Lab [address] [place] [address] Ese Grier DNP [address] [place] [address], [address] [place] [address] 09/21/2025 10:30 AM EST Office Visit [facility] [address] [place] [address] 3rd Floor, [address] [place] [address] Star Goodman DO [address] [place] [address] [place] [address] 01/05/2026 9:10 AM EDT Office Visit [facility] Rheumatology [address] [place] [address] [place] [address] Angle Rouse MD, MPH [address] [place] [address], [address] [place] [address] 06/25/2026 9:00 AM EDT Office Visit [address] [place] [address] Alonso Denney MD [address] [place] [address], [address] [place] [address] documented as of this encounter Visit Diagnoses Not on filedocumented in this encounter Additional Health Concerns Assessment Noted Time PHQ-2 Depression Total Score: 0 06/22/20 25 11:03 AM EDT documented as of this encounter Care Teams Tube Splicer Relationship Specialty Start Date End Date Alonso Denney MD [address] [place] [address], [address] [place] [address] PCP - General 07/02/17 Alonso Denney MD [address] [place] [address], [address] [place] [address] Historical LMR Provider 07/08/17 Homa Richards MD [address] [place] [address] [facility], [facility] [place] [address] [email or web address] Historical LMR Provider 07/08/17 documented as of this encounter Additional Source Comments The information contained in this document represents components of the legal health record. It is not the complete legal health record.[facility]
--- OUTSIDE RECORDS SUMMARY | 2025-07-16 09:48 | XMS_ITS | Encounter Summary ---
Author Organization [facility] Address [address] [facility] [address] [place] [address] Phone Care Team Providers Care Liability Claims Representative Name Role Phone Alonso Denney MD Unavailable [phone] Alonso Denney MD Primary Care Provider + [phone] Homa Richards MD Unavailable [phone] Reason for Visit * Reason Onset Date Comments Results 07/13/2025 Encounter Details Date Type Department Care Team (Late st Contact Info) Description 07/13/2025 Telephone [facility] [address] [place] [address] Fatuma Monsalve, JIGAR [address] [place] [address] [email or web address] Results Social History Tobacco Use Types Packs/Day Years [...] as of this encounter Progress Notes * Fatuma Monsalve RN - 07/13/2025 4:01 PM EDT Made aware of results, virtual visit scheduled 07/15 at 1:45. documented in this encounter Plan of Treatment Upcoming Encounters Date Type Department Care Team (Late st Contact Info) Description 03/13/2025 Procedure Pass Echo Lab [address] [place] [address] 08/11/2025 3:00 PM EST Nurse Only [address] [place] [address] Alonso Denney MD [address] [place] [address], [address] [place] [address] 08/17/2025 2:45 PM EST Appointment Echo Lab [address] [place] [address] Ese Grier DNP [address] [place] [address], [address] [place] [address] 09/21/2025 10:30 AM EST Office Visit [facility] [address] [place] [address] Dr 3rd Floor, [address] [place] [address] Star Goodman DO [address] [place] [address] [place] [address] 01/05/2026 9:10 AM EDT Office Visit [facility] Rheumatology [address] [place] [address] [place] [address] Angle Rouse MD, MPH [address] [place] [address], [address] [place] [address] 06/25/2026 9:00 AM EDT Office Visit [address] [place] [address] Alonso Denney MD [address] [place] [address], [address] [place] [address] documented as of this encounter Visit Diagnoses Not on filedocumented in this encounter Additional Health Concerns Assessment Noted Time PHQ-2 Depression Total Score: 0 06/22/20 25 11:03 AM EDT documented as of this encounter Care Teams Liability Claims Representative Relationship Specialty Start Date End Date Alonso Denney MD [address] [place] [address], [address] [place] [address] PCP - General 07/02/17 Alonso Denney MD [address] [place] [address], [address] [address] Historical LMR Provider 07/08/17 Homa Richards MD [address] [place] [address] [facility], [place] [address] Historical LMR Provider 07/08/17 documented as of this encounter Additional Source Comments The information contained in this document represents components of the legal health record. It is not the complete legal health record.[facility]
--- OUTSIDE RECORDS SUMMARY | 2025-07-16 09:48 | XMS_ITS | Encounter Summary ---
Author Organization [facility] Address [address] [place] [address] Phone Care Team Providers Care Eddy Current Inspector Name Role Phone Alonso Denney MD Unavailable [phone] Alonso Denney MD Primary Care Provider + [phone] Homa Richards MD Unavailable [phone] Encounter Details Date Type Department Care Team (Late st Contact Info) Description 07/15/2025 Telephone [facility] [address] [place] [address] Ernestine Diaz RN [address] [place] [address] [email or web address] Social History Tobacco Use Types Packs/Day Years [...] as of this encounter Progress Notes * Ernestine Diaz RN - 07/15/2025 12:53 PM EDT Pt called to inquire about a new patient appointment that had been scheduled. Per Dr. Denney last note, it appears that he wanted a referral to genetics as pt has a family history of breast cancer. Contacted Dr. Denney' office to have the referral placed for genetics and explained to pt that whenzo has a discussion with a genetics counselor she may need to come here for a blood test. Pt stated understanding. documented in this encounter Plan of Treatment Upcoming Encounters Date Type Department Care Team (Late st Contact Info) Description 03/13/2025 Procedure Pass Echo Lab [address] [place] [address] 08/11/2025 3:00 PM EST Nurse Only [facility] Medicine [address] [place] [address] [place] [address] Alonso Denney MD [address] [place] [address], [address] [place] [address] 08/17/2025 2:45 PM EST Appointment Echo Lab [address] [place] [address] Ese Grier DNP [address] [place] [address], [address] [address] 09/21/2025 10:30 AM EST Office Visit [facility] [address] [place] [address] 3rd Floor, [address] [place] [address] Star Goodman DO [address] [place] [address] 01/05/2026 9:10 AM EDT Office Visit [facility] Rheumatology [address] [place] [address] [place] [address] Angle Rouse MD, MPH [address] [place] [address], [address] [place] [address] 06/25/2026 9:00 AM EDT Office Visit [address] [address] Alonso Denney MD [address] [place] [address], [address] [place] [address] documented as of this encounter Visit Diagnoses Not on filedocumented in this encounter Additional Health Concerns Assessment Noted Time PHQ-2 Depression Total Score: 0 06/22/20 25 11:03 AM EDT documented as of this encounter Care Teams Eddy Current Inspector Relationship Specialty Start Date End Date Alonso Denney MD [address] [place] [address], [address] [place] [address] PCP - General 07/02/17 Alonso Denney MD [address] [place] [address], [address] [place] [address] Historical LMR Provider 07/08/17 Homa Richards MD [address] [place] [address] [facility], [place] [address] Historical LMR Provider 07/08/17 documented as of this encounter Additional Source Comments The information contained in this document represents components of the legal health record. It is not the complete legal health record.[facility]
--- OUTSIDE RECORDS SUMMARY | 2025-07-16 09:48 | XMS_ITS | Encounter Summary ---
Author Organization [facility] Address [address] [place] [address] [place] [address] Phone Care Team Providers Care Batcher Operator Name Role Phone Alonso Denney MD Unavailable [phone] Fátima Cha MD Unavailable [phone] Alonso Denney MD Primary Care Provider [phone] Josephine Beltran NP Unavailable [phone] Prudence Mishra MD Unavailable [phone] Jarrell Pretty MD Unavailable [phone] Homa Richards MD Unavailable [phone] Alonso Denney MD Unavailable [phone] Encounter Details Date Type Department Care Team (Late st Contact Info) Description 06/25/2018 Ancillary Orders Virtual Department [address] [place] [address] Fátima Cha MD [address] [facility], [address] [place] [address] Breast screening Social History Tobacco Use Types [...] Description 03/13/2025 Procedure Pass Echo Lab [address] [place] [address] 08/11/2025 3:00 PM EST Nurse Only [address] [place] [address] Alonso Denney MD [address] [place] [address], [address] [place] [address] 08/17/2025 2:45 PM EST Appointment Echo Lab [address] [place] [address] Ese Grier DNP [address] [place] [address], [address] [place] [address] 09/21/2025 10:30 AM EST Office Visit [facility] [address] [place] [address] 3rd Floor, [address] [place] [address] Star Goodman DO [address] [place] [address] [place] [address] 01/05/2026 9:10 AM EDT Office Visit [facility] Rheumatology [address] [place] [address] [place] [address] Angle Rouse MD, MPH [address] [place] [address], [address] [place] [address] 06/25/2026 9:00 AM EDT Office Visit [address] [place] [address] Alonso Denney MD [address] [place] [address], [address] [place] [address] [email or web address] documented as of this encounter Results * [...] lowers the sensitivity of mammography. POS - [id number] Narrative 08/28/2018 2:35 PM EST Standard digital [...] and compared with multiple prior studies, most [id number]/11/2017, with utilization of computer-aided detection. The breast [...] whichlowers the sensitivity of mammography. POS - [id number] Fátima Cha MD IMG MG EXAMS Final [...] documented as of this encounter Care Teams Batcher Operator Relationship Specialty Start Date End Date Alonso Denney MD [address] [place] [address], [address] [place] [address] PCP - General 07/02/17 Alonso Denney MD [address] [place] [address], [address] [place] [address] Historical LMR Provider 07/08/17 Fátima Cha MD [address] [place] [address], [address] [place] [address] Historical LMR Provider 07/08/17 09/24/21 Josephine Beltran NP [address] [place] [address] Historical LMR Provider 07/08/17 2 Prudence Mishra MD [address] [place] [address], 2nd [place] [address] Historical LMR Provider 07/08/17 Jarrell Pretty MD [address] [place] [address], 2nd [place] [address] Historical LMR Provider 07/08/17 09/24/21 Homa Richards MD [address] [place] [address] Orthopedics & Sports Medicine, [place] [address] Historical LMR Provider 07/08/17 Alonso Denney MD [address] [place] [address], [address] [place] [address] Insurance Assigned Provider 01/18/19 documented as of this encounter Additional Source Comments The information contained in this document represents components of the legal health record. It is not the complete legal health record.[facility]
--- OUTSIDE RECORDS SUMMARY | 2025-07-16 09:48 | XMS_ITS | Encounter Summary ---
Author Organization [facility] Address [address] [facility] [address] [place] [address] Phone Care Team Providers Care Driver Helper Name Role Phone Alonso Denney MD Unavailable [phone] Alonso Denney MD Primary Care Provider + [phone] Homa Richards MD Unavailable [phone] Encounter Details Date Type Department Care Team (Latest Contact Info) Description 07/09/2024 Transcribe Orders Virtual Department 30 [place] [address] Alonso Denney MD [address] [facility], [address] [place] [address] [email or web address] Breast screening (Primary Dx) Social [...] high school, GED, job training, learning the [place] language, technical skills, or developing parenting skills)? [...] Info) Description 03/13/2025 Procedure Pass Echo Lab [address] [place] [address] 08/11/2025 3:00 PM EST Nurse Only [address] [place] [address] Alonso Denney MD [address] [place] [address], [address] [place] [address] 08/17/2025 2:45 PM EST Appointment Echo Lab [address] [place] [address] Ese Grier DNP [address] [place] [address], [address] [place] [address] 09/21/2025 10:30 AM EST Office Visit [facility] [address] [place] [address] Dr 3rd Floor, [address] [place] [address] Star Goodman DO [address] [place] [address] [address] [place] [address] 01/05/2026 9:10 AM EDT Office Visit [facility] Rheumatology [address] [place] [address] [place] [address] Angle Rouse MD, MPH [address] [place] [address], [address] [place] [address] 06/25/2026 9:00 AM EDT Office Visit [address] [place] [address] Alonso Denney MD [address] [place] [address], [address] [place] [address] documented as of this encounter Results * [...] documented as of this encounter Care Teams Driver Helper Relationship Specialty Start Date End Date Alonso Denney MD [address] [place] [address], [address] [place] [address] PCP - General 10/16/17 Alonso Denney MD [address] [place] [address], [address] [place] [address] Historical LMR Provider 07/08/17 Homa Richards MD [address] [place] [address] Orth[facility] Sports Medicine, [place] [address] [email or web address] Historical LMR Provider 07/08/17 documented as of this encounter Additional Source Comments The information contained in this document represents components of the legal health record. It is not the complete legal health record.[facility]
--- OUTSIDE RECORDS SUMMARY | 2025-07-16 09:48 | XMS_ITS | Encounter Summary ---
Author Organization [facility] Address [address] [place] [address] [place] [address] Phone Care Team Providers Care Netbackup Administrator Name Role Phone Alonso Denney MD Unavailable [phone] Fátima Cha MD Unavailable [phone] Alonso Denney MD Primary Care Provider [phone] Josephine Beltran NP Unavailable [phone] Prudence Mishra MD Unavailable [phone] Jarrell Pretty MD Unavailable [phone] Homa Richards MD Unavailable [phone] Alonso Denney MD Unavailable [phone] Encounter Details Date Type Department Care Team (Late st Contact Info) Description 06/25/2018 Ancillary Orders [facility] [address] [place] [address] Fátima Cha MD [address] [facility], [address] [place] [address] Social History Tobacco Use Types Packs/Day Years [...] Description 03/13/2025 Procedure Pass Echo Lab [address] [place] [address] 08/11/2025 3:00 PM EST Nurse Only [address] [place] [address] Alonso Denney MD [address] [place] [address], [address] [place] [address] 08/17/2025 2:45 PM EST Appointment Echo Lab [address] [place] [address] Ese Grier DNP [address] [place] [address], [address] [place] [address] 09/21/2025 10:30 AM EST Office Visit [facility] [address] [place] [address] 3rd Floor, [address] [place] [address] Star Goodman DO [address] [place] [address] [place] [address] 01/05/2026 9:10 AM EDT Office Visit [facility] Rheumatology [address] [place] [address] [place] [address] Angle Rouse MD, MPH [address] [place] [address], [address] [place] [address] 06/25/2026 9:00 AM EDT Office Visit [address] [place] [address] Alonso Denney MD [address] [place] [address], [address] [place] [address] documented as of this encounter Visit Diagnoses Not on filedocumented in this encounter Additional Health Concerns Infection Onset Date Last Indicated Resolved Time COVID-19 11/29/2022 11/29/2022 12/20/2022 1:21 AM EDT CoV-Risk Comment:Per Ambulatory Triage Form 11/30/2022 11/30/202211/30 8:26 AM EDT documented as of this encounter Care Teams Netbackup Administrator Relationship Specialty Start Date End Date Alonso Denney MD [address] [place] [address], [address] [place] [address] PCP - General 07/02/17 Alonso Denney MD [address] [place] [address], [address] [place] [address] Historical LMR Provider 07/08/17 Fátima Cha MD [address] [place] [address] [email or web address] Historical LMR Provider 07/08/17 09/24/21 Josephine Beltran NP [address] [place] [address] Historical LMR Provider 07/08/17 2 Prudence Mishra MD [address] [place] [address] Historical LMR Provider 07/08/17 Jarrell Pretty MD [address] [place], [place] [address], [place] [address] Historical LMR Provider 07/08/17 09/24/21 Homa Richards MD [address] [place] [address] [facility], [place] [address] Historical LMR Provider 07/08/17 Alonso Denney MD [address] [place] [address], [address] [place] [address] [email or web address] Insurance Assigned Provider 01/18/19 documented as of this encounter Additional Source Comments The information contained in this document represents components of the legal health record. It is not the complete legal health record.[facility]
== END 2025-07-16 09:30 | disposition home or self-care (01) ==
LOC: HO.HNS 08:51
PROVIDERS: PCP Family Medicine; Visit Provider Physician Assistant
DX: M48.062 Spinal stenosis, lumbar region with neurogenic claudication (principal)
CPT/HCPCS: 99024

== ENCOUNTER → 2025-07-16 09:36 | Outpatient (BNV) | payer MEDICARE, SELFPAY | PROVIDERS: PCP Family Medicine; Visit Provider Radiology Diagnostic Radiology | DX: M48.062 Spinal stenosis, lumbar region with neurogenic claudication (principal) | CPT/HCPCS: 72110 ==

== ENCOUNTER → 2025-08-12 10:14 | Outpatient (BNV) | payer MEDICARE, SELFPAY | PROVIDERS: PCP Family Medicine; Visit Provider Radiology Body Imaging | DX: M48.062 Spinal stenosis, lumbar region with neurogenic claudication (principal) | CPT/HCPCS: 72158 ==

== ENCOUNTER 2025-08-12 10:25 | Outpatient (REF) | payer MEDICARE, SELFPAY ==
--- NOTE | ~2025-08-12 | MR_ITS ---
EXAMINATION: MR LUMBAR SPINE WITHOUT THEN WITH IV CONTRAST CLINICAL INFORMATION: M48.062 - Spinal stenosis, lumbar region with neurogenic claudication According technologist's notes: History of surgery on May 14, 2025. Right leg pain. COMPARISON: MR from [facility] on May 05, 2024 . Radiographs of the lumbar spine on July 16, 2025. TECHNIQUE: MRI of the lumbar spine was obtained using routine sequences prior to and following intravenous administration of 7.5 ml contrast gadolinium Gadavist. FINDINGS: Alignment and vertebrae: Mild dextrocurvature of the lumbar spine. Similar slight grade 1 retrolisthesis of L4 on L5. No compression fracture. Small Schmorl nodes at few levels. Intervertebral discs and endplates: Severe loss of disc height on the right side at L4-L5, is similar to prior study; allowing to differences in the scanner/technique, interval improvement of associated endplate edematous changes. Conus: Conus terminates at L1-L2. Included spinal cord/conus is unremarkable. Soft tissues: Postsurgical changes associated with surrounding soft tissue enhancement at L3-L4, that continues into the right L3-L4 laminectomy site. Other findings: No concerning findings. Findings by level: T11-T12: No spinal canal or neuroforaminal stenosis. T12-L1: Minimal bulging disc. No spinal canal or neuroforaminal stenosis. L1-L2: No spinal canal or neuroforaminal stenosis. L2-L3: Mild bulging disc with superimposed right foraminal disc protrusion. Mild facet arthropathy. Epidural fat. Mild spinal canal stenosis. No neuroforaminal stenosis. L3-L4: Right laminectomy changes. Combination of bulging disc, moderate facet arthropathy and epidural fat contributes to mild/moderate left and mild right neuroforaminal stenosis and mild spinal canal stenosis. Compared to 202 exam, the spinal canal and left foramina stenosis have mildly improved. L4-L5: Combination of bulging disc and posterior marginal osteophytes eccentric to the right side and moderate facet arthropathy results in moderate right and mild left neuroforaminal stenosis and mild spinal canal stenosis, similar to 202. L5-S1: Combination of mild bulging disc and moderate facet arthropathy results in mild/moderate left and mild right neuroforaminal stenosis. No spinal canal stenosis. Findings are similar to 202. MR/MR lumbar spine wo/w con IMPRESSION: 1. Postsurgical changes within enhancing soft tissue edema extending from the posterior paraspinal soft tissues into the right laminectomy site at L3-L4. 2. In comparison to 2023, the degree of stenosis of the spinal canal and left neural foramina at L3-L4 has mildly improved. Moderate neuroforaminal stenosis on the right at L4-L5 and mild/moderate neuroforaminal stenosis on the left at L5-S1 are similar to 202. Electronically signed by: José Miguel Mckeon MD 08/12/2025 12:45 PM KALLI
== END 2025-08-12 10:26 | disposition home or self-care (01) ==
LOC: HO.MRI 10:25
PROVIDERS: PCP Family Medicine; Visit Provider Physician Assistant
DX: M48.062 Spinal stenosis, lumbar region with neurogenic claudication (principal)
CPT/HCPCS: 72158; A9585